=== PATIENT | female | born 2000 | race Caucasian/White ===

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

== ENCOUNTER 2022-05-27 12:09 | Emergency (ER) | payer OTHER, BC ==
[~2022-05-27] VITALS: Ht 157.5 cm; Wt 67.1 kg
[2022-05-27] MEDS ORDERED: ONDANSETRON ODT8 MG PO (15:56)
== END 2022-05-27 16:24 | disposition home or self-care (01) ==
LOC: ED 12:09
DX: K29.00 Acute gastritis without bleeding (principal)
CPT/HCPCS: 36415; 74177; 80053; 81001; 83735; 84703; 85025; J1885; J2405; J7030; Q9967

== ENCOUNTER 2022-06-06 07:12 | Emergency (ER) | payer OTHER, BC ==
[~2022-06-06] VITALS: Ht 157.5 cm; Wt 59.2 kg
[~2022-06-06 07:12] MED LIST changes: +ONDANSETRON ODT8 MG PO
--- OUTSIDE RECORDS SUMMARY | 2022-06-06 07:18 | XMS ---
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 Juan has no Care Guidelines for this patient. Dominick VISIT COUNT (12 MO.) 3 Les Jimenez [address] TOTAL 5 NOTE: Visits indicate total known visits. ED/UCC VISIT TRACKING (12 MO.) 06/06/2022 07:[address] [facility] [place] TYPE: Emergency COMPLAINT: - VOMITING, ABD PAIN 05/27/2022 12:11 KAYLIN Plasencia [place] TYPE: Emergency COMPLAINT: - VOMITING, CHILLS/SWEATS DIAGNOSES: - Vomiting, unspecified - Acute gastritis without bleeding 03/02/2022 03:12 [facility] [employer] [place] TYPE: Emergency DIAGNOSES: - nvd, poss med reaction - Cannabis abuse with other cannabis-induced disorder - nvd, poss med reaction, poss Hemoptysis [facility] [place] [facility] DIAGNOSES: - Generalized abdominal pain - abd/nausea/vomiting - Nausea with vomiting, unspecified 09/07/2021 08:14 [facility] [employer] [place] TYPE: Emergency DIAGNOSES: - n/v/d x several months - Upper abdominal pain, unspecified - Gastro-esophageal reflux disease with esophagitis, without bleeding INPATIENT VISIT TRACKING (12 MO.) No inpatient visits to display in this time frame [id number]
[2022-06-06] MEDS ORDERED: OMEPRAZOLE20 MG PO ×2 (07:27→08:32)
[2022-06-06] MEDS ORDERED: DICYCLOMINE HCL20 MG PO (08:32)
== END 2022-06-06 08:49 | disposition home or self-care (01) ==
LOC: ED 07:12
DX: R10.11 Right upper quadrant pain (principal); R10.31 Right lower quadrant pain; R11.11 Vomiting without nausea; Z79.899 Other long term (current) drug therapy
CPT/HCPCS: 36415; 76705; 80053; 81001; 83690; 84703; 85025; J1885; J2405; J7030

== ENCOUNTER 2022-06-07 07:33 | Observation (INO) | payer OTHER, BC ==
[~2022-06-07] VITALS: Ht 157.5 cm; Wt 61.6 kg
[~2022-06-07 07:33] MED LIST changes: +DICYCLOMINE HCL20 MG PO; +OMEPRAZOLE20 MG PO
--- OUTSIDE RECORDS SUMMARY | 2022-06-07 07:38 | XMS ---
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 Juan has no Care Guidelines for this patient. Dominick VISIT COUNT (12 MO.) 3 [facility] NOTE: Visits indicate total known visits. ED/C VISIT TRACKING (12 MO.) 06/07/2022 07[facility] [place] [facility] COMPLAINT: - VOMITING 06/06/2022 07:[address] [facility] [place] TYPE: Emergency COMPLAINT: - VOMITING, ABD PAIN 05/27/2022 12:11 KAYLIN Plasencia [place] TYPE: Emergency COMPLAINT: - VOMITING, CHILLS/SWEATS DIAGNOSES: - Vomiting, unspecified - Acute gastritis without bleeding 03/02/2022 03:12 [facility] [place] TYPE: Emergency DIAGNOSES: - nvd, poss med reaction - Cannabis abuse with other cannabis-induced disorder - nvd, poss med reaction, poss Hemoptysis 10/24/2021 07:01 [facility] [place] TYPE: Emergency DIAGNOSES: - Generalized abdominal pain - abd/nausea/vomiting - Nausea with vomiting, unspecified 09/07/2021 08:14 Les Thakkar [place] TYPE: Emergency DIAGNOSES: - n/v/d x several months - Upper abdominal pain, unspecified - Gastro-esophageal reflux disease with esophagitis, without bleeding INPATIENT VISIT TRACKING (12 MO.) No inpatient visits to display in this time frame [id number]
--- NOTE | 2022-06-07 13:31 | NUR ---
assumed care of pt, mom in room, call light in reach - pt denies needs
--- NOTE | 2022-06-07 14:00 | NUR ---
PT REQUESTING PAIN MEDICATION, GIVEN 30MG IV TORADOL. PT DENIES OTHER NEEDS AT THIS TIME.
--- NOTE | 2022-06-07 16:24 | NUR ---
SET HER UP FOR A SHOWER FOR TONIGHT OR TOMORROW. PATIENT IS INDEPENDENT IN ROOM.
--- NOTE | 2022-06-07 18:14 | NUR ---
DR HERNANDEZ HERE, PT ABLE TO EAT UNTIL MIDNIGHT - DENIES PAIN, NAUSEA COMES AND GOES - ZOFRAN GIVEN, = INSTRUCTED TO REPORT CHANGES WITH FOOD,
--- NOTE | 2022-06-07 18:34 | NUR ---
consent signed, strait tubing LR at bedside - dinner from kitchen delivered - not very appealing to pt - mom is going out to get her some food - grapes did however cause discomfort in abdomen when she had them. scd's and is to pt and educated. discussed plan of care and what surgery is like.
--- NOTE | 2022-06-07 19:30 | NUR ---
REPORT RECEIVED FROM DAY SHIFT RN. PT LYING IN BED ALERT AND ORIENTED. DENIES NEEDS AT THIS TIME. WHITE BOARD UPDATED. CALL LIGHT IN REACH.
--- NOTE | 2022-06-07 21:04 | NUR ---
EVENING ASSESSMENT COMPLETE. SCHEDULED MEDS ADMIN PER EMAR. PRN FOR PAIN ADMIN FOR 1-03/02 ABD PAIN. PT REPORTS INCREASED RUQ PAIN AFTER EATING GRAPES AND JELLO. SIPPING ON CHICKEN BROTH BROUGHT IN BY MOM, DENIES ABD PAIN OR NAUSEA WITH BROTH AND ICE WATER. BOWEL TONES ACTIVE. ABD SOFT AND NON DISTENDED. PT VOIDING QS. IVF INFUSING WNL. PT/MOM DENY QUESTIONS OR CONCERNS. CALL LIGHT IN REACH.
--- NOTE | 2022-06-07 22:08 | NUR ---
CALL LIGHT ON. pt AMBULATED TO BATHROOM. STATED "I JUST WANTED TO LET MY NURSE KNOW I'M STILL HAVE SOME PAIN RIGHT NOW." DECLINED NEEDS AT THIS TIME. CALL LIGHT WITHIN REACH. PRIMARY RN INFORMED
--- NOTE | 2022-06-07 23:30 | NUR ---
CALL LIGHT ANSWERED. PT REPORTS NAUSEA. PRN FOR N/V ADMIN PER EMAR. REPORTS ABD PAIN 01/30. DENIES PRN FOR PAIN AT THIS TIME. NO FURTHER NEEDS. CALL LIGHT IN REACH.
--- NOTE | 2022-06-08 00:10 | NUR ---
PT REPORTS NAUSEA IMPROVED AFTER PRN ADMINISTRATION. PT NPO AT THIS TIME. VERBALIZES UNDERSTANDING. IVF INFUSING WNL. NO NEEDS AT THIS TIME.
--- NOTE | 2022-06-08 01:54 | NUR ---
CALL LIGHT ANSWERED. PT REPORTS 3/10 INTERMITTENT BURNING RUQ PAIN. PRN FOR PAIN ADMIN PER EMAR. DENIES NAUSEA. REMAINS NPO. VS AND I&O COMPLETE.
--- NOTE | 2022-06-08 02:45 | NUR ---
CALL LIGHT ANSWERED. PT REPORTS ABD PAIN "CREEPING UP" TO 03/02. PRN FOR PAIN ADMIN. NO FURTHER NEEDS.
--- NOTE | 2022-06-08 06:16 | NUR ---
VS AND I&O COMPLETE. PT REPORTS ABD PAIN IS TOLERABLE. REPORTS NAUSEA. PRN FOR N/V ADMIN PER EMAR. PT SL FOR SHOWER. LINENS CHANGED.
--- NOTE | 2022-06-08 06:55 | NUR ---
PT OUT OF THE SHOWER. PHOEBE WELL. IVF INFUSING WNL. WARM BLANKET PROVIDED. BATHROOM CLEANED. NO FURTHER NEEDS.
--- NOTE | 2022-06-08 07:53 | NUR ---
PT RECEIVED WARM BLANKETS FROM [facility].
--- NOTE | 2022-06-08 08:00 | NUR ---
PT STATED SHE TOOK SHOWER AT 0600 THIS MORNING.
--- NOTE | 2022-06-08 08:25 | NUR ---
pt pre procedure check list done, hibicleans wipes done, lr with strait tubeing and ancef oncology research rn to or, pt mom here - scd's on. npo since midnight.
--- NOTE | 2022-06-08 09:20 | HP ---
[facility] [address], [place] [address] Signed ADMISSION DATE: 06/07/2022 REASON FOR ADMISSION: Probable acalculous cholecystitis; abdominal pain and dehydration. HISTORY OF PRESENT ILLNESS: This 21-year-old white woman presented to the emergency room today accompanied by her mother and evaluated by Dr. Alarcon. The patient has had recurrent abdominal pain and vomiting. Her most recent episode started this morning at approximately 6:00 a.m. The patient was seen yesterday for similar symptoms and had normal lab studies including liver enzymes and lipase and a normal right upper abdominal ultrasound. She had been seen 10 days earlier with similar symptoms and a CT scan was performed at that time, which included the pelvis and which was also normal. The patient has had symptoms of a similar type intermittently for several years and was medically discharged from [employer] because of them. She was living in [place] at that time and was seen by a chauffeur airport limousine and had a normal upper endoscopy and ultimately given a diagnosis of irritable bowel syndrome. She did not have a CCK-HIDA test. She did have a gastric emptying study (solid food emptying study) which was said to be normal. She has not been peristently using marijuana. Her symptoms are often related to meals and she absolutely avoids fatty food for fear of causing her symptoms; this is relatively reliable. Her symptoms are definitely related to food intake, and signifiantly worse with fatty food intake. 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 She has associated retching and vomiting as well. She has been on PPI medication on a persistent basis, most recentely on omeprazole and Zofran, as well as dicyclomine. She denies any posterior thoracic pain, though she does have back pain chronically, which she says is related to her years of heavy activity in excersizes in the [employer]. She has an appointment to see Jodi Kirkpatrick in the office of Dr. Abby Gan and conversation between Dr. Alarcon and that office has included a recommendation for a CCK-HIDA test. Electronically Signed By: NEFTALI HERNANDEZ MD 06/08/22 0920 PATIENT NAME: KATERIN MARINA HISTORY AND PHYSICAL DATE OF : 01 REPORT #: [id number] PHYSICIAN: NEFTALI HERNANDEZ MD PCP: HEAVEN KIRKPATRICK PAC REPORT IS CONFIDENTIAL AND NOT TO BE RELEASED WITHOUT AUTHORIZATION [place] [address] Signed I was called by Dr. Alarcon regarding the situation for any further input and on that basis, I have seen her today. PAST MEDICAL HISTORY: Relatively unremarkable. She has never had surgery of the abdomen. Her recent test is negative. LABORATORY STUDIES: Today show a white count of 16,000, hematocrit 41.2, platelets 430,000. Chem profile is essentially normal including liver enzymes. Lipase is 61. CT scan of her abdomen and pelvis performed on May 27, 2022 was essentially normal as interpreted by Dr. Brown. She is considered to have gallbladder sludge on that evaluation. There was a right ovarian cyst that was 45 mm in size. An IUD is in position appropriately. 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 She is not . She lives now in [place]. She was formally in the [employer]. PHYSICAL EXAMINATION: GENERAL: Pleasant white woman who appears to be reasonably comfortable at this time. VITAL SIGNS: Temperature is 98, pulse 65, blood pressure 127/87. NECK: Shows no thyromegaly or cervical adenopathy. Trachea is midline. CHEST: Clear. HEART: Regular. ABDOMEN: Nondistended. She does not have ascites or distention. There is mild vague tenderness in the right upper abdomen. There is no right lower quadrant tenderness. EXTREMITIES: Show no clubbing, cyanosis, or edema. Lab studies were as previously described. I reviewed personally the gallbladder ultrasound performed June 06; there appears to be no sign of stone or sludge, but there is visualization of the posterior wall of the gallbladder . CT scan was reviewed as well. Her liver appeared normal on May 27, stomach and spleen appear normal as do the right and left kidneys. The gallbladder was visualized and not hydropic. I do not discern the sludge as mentioned by the radiologist on this particular monitor and without magnification. The question of ovarian cyst is noted and some asymmetry to the left ovary noted with some consideration (on my part) of possible dermoid, though not certain at all. ASSESSMENT: This patient has had chronic recurrent abdominal pain and nausea and vomiting for which Gastroenterology evaluation in [place], [place] was undertaken. The symptoms have been Electronically Signed By: NEFTALI HERNANDEZ MD 06/08/22 0920 PATIENT NAME: KATERIN MARINA HISTORY AND PHYSICAL DATE OF : 01 REPORT #: [id number] PHYSICIAN: NEFTALI HERNANDEZ MD PCP: HEAVEN KIRKPATRICK PAC REPORT IS CONFIDENTIAL AND NOT TO BE RELEASED WITHOUT AUTHORIZATION [facility] [address] [place] [id number] Signed disabling enough that it caused her to be medically discharged from the [employer]. Strong suspicion remains that this represents biliary disease. She has been described as having possible irritable bowel syndrome; a solid food emptying study was said to be normal. A CT scan and ultrasound results are well acknowledged; there was one episode of the CT scan describing biliary sludge in the gallbladder. She has no abnormal liver enzymes. Her symptoms are reliably related to meals; she has no family history of biliary disease. Her current examination does show mild epigastric and right subcostal tenderness. There is no focal mass. She has tried a low FODMAP diet but only briefly and although she may have indeed irritable bowel syndrome (does describe diarrhea sometimes). It is quite notable that acalculous biliary disease (acalculous cholecystitis) is concomitant to such underlying functional disorders as well. The patient prior to my evaluation was treated with Dilaudid and antiemetics. I would recommend admission to the hospital, continued IV rehydration efforts and re-evaluation. The laparoscopic evaluation including possible cholecystectomy would be reasonable. A CCK-HIDA test certainly would be indicated if available, but this is the weekend and it is not available certainly until the early week. She has had recurrent visits to the ER recently and her symptoms are not abating, but rather accelerating. It has been over a year since her upper endoscopy and though I think it unlikely that she has peptic disease accounting for this set of symptoms some consideration of re-evaluation by upper endoscopy might be considered. For now, considering she has elevated white count, difficulty with oral intake at home and clinical dehydration, admission to the hospital, IV fluid administration and re-examination when her current medications have worn off would be warranted. The patient and her mother (who was present for evaluation) would certainly proceed with cholecystectomy if there is even a slight chance it would improve her progressive disabling symptoms. Laparoscopic evaluation might additionally identify an otherwise occult cause of her symptoms as well, even if the gallbladder was not the source. Neftali Hernandez MD Electronically Signed By: NEFTALI HERNANDEZ MD 06/08/2220 PATIENT NAME: KATERIN MARINA HISTORY AND PHYSICAL DATE OF : 01 REPORT #: [id number] PHYSICIAN: NEFTALI HERNANDEZ MD PCP: HEAVEN KIRKPATRICK REPORT IS CONFIDENTIAL AND NOT TO BE RELEASED WITHOUT AUTHORIZATION [address] [address] Signed /MOD /[id number] cc: MD Kishore Iglesias MD Erika Acuna, PA-C Copies: ABBY GAN MD, WILLIAM S MD ACUNA, ERIKA PAC ~ Electronically Signed By: NEFTALI HERNANDEZ MD 06/08/22919 PATIENT NAME: KATERIN MARINA HISTORY AND PHYSICAL DATE OF : 01 REPORT #: [id number] PHYSICIAN: NEFTALI HERNANDEZ MD PCP: HEAVEN KIRKPATRICK PAC REPORT IS CONFIDENTIAL AND NOT TO BE RELEASED WITHOUT AUTHORIZATION
--- NOTE | 2022-06-08 10:44 | NUR ---
06/08/22 1044 Nidia Celestin 1038: PT ARRIVES TO PACU WITH ORAL AIRWAY IN PLACE ON ROOM AIR. SHE IS NON-REACTIVE TO STIMULUS AT THIS TIME.
--- NOTE | 2022-06-08 11:39 | NUR ---
PATIENT DID A SURGICAL WIPE DOWN. AT 0800 THIS MORNING. ISAURA CHANGED BED LINENS. SCDS ON CLEAN GOWN AND SOCKS.
--- NOTE | 2022-06-08 12:13 | NUR ---
pt to room after surgery - amb standby assist to void in br. 400 ml iv fusing. abd scope sites x4 wnl scds on, mom in room iv toradol given 5/10 pain
--- NOTE | 2022-06-08 13:00 | NUR ---
amb pt to br to void, 500 ml clear urine.
--- NOTE | 2022-06-08 14:20 | NUR ---
pt taken po percocet with food for 4/10 abd pain. scope sites wnl
--- NOTE | 2022-06-08 16:20 | NUR ---
PATIENT AND I AND HER MOM WALKED 1 LAP AROUND MED SURG.
--- NOTE | 2022-06-08 17:45 | NUR ---
PT RESTING IN BED. DID NOT WANT MEAL TRAY BUT HAS SNACKD FOR LATER IN ROOM. VITALS AND I/O'S COMPLETED. NO COMPLAINTS OF PAIN OR OTHER NEEDS AT THIS TIME. CALL LIGHT WITHIN REACH.
--- NOTE | 2022-06-08 17:53 | NUR ---
pt tollerated bites of applesauce - ordered pbj - did not like dinner of pasta sauce and noodles, mom in room, sl iv - pt dressing in own clothing for comfort.
--- NOTE | 2022-06-08 17:57 | NUR ---
pt amb in [place] around nurses station. with mom - no n/v.
--- NOTE | 2022-06-08 18:09 | NUR ---
TALK TO DR HERNANDEZ ON PHONE - UPDATE OF POSITIVE PT BENCHMARKS, PLAN TO STAY TONIGHT AND LEAVE IN AM, THAT WAY NO RX PROBLEMS DUE TO THURSDAY ZHOU, AND IF PT DEVELOPS NAUSEA SHE IS HERE. PT AND MOM AGREE. SL IV, TOLL PO AND HAVING SOME ABD. PAIN.
--- NOTE | 2022-06-08 19:31 | NUR ---
REPORT RECEIVED FROM DAY SHIFT RN. PT LYING IN BED ALERT AND ORIENTED. DENIES NEEDS. WHITE BOARD UPDATED. CALL LIGHT IN REACH.
--- NOTE | 2022-06-08 19:45 | NUR ---
PT REPORTS ABD PAIN 4/10 AFTER AMBULATING IN [place]. PRN FOR PAIN ADMIN PER EMAR.
--- NOTE | 2022-06-08 20:57 | NUR ---
EVENING ASSESSMENT COMPLETE. SCHEDULED MEDS ADMIN PER EMAR. PT REPORTS ABD PAIN 03/02. PRN FOR PAIN ADMIN PER EMAR. ABD LAP SITES X 4 WITH STERI STRIPS AND GAUZE INTACT. SMALL AMOUNT OLD DRAIANGE NOTED. ABD SOFT AND NON DISTENDED. BOWEL TONES ACTIVE. PT REPORTS FLATUS. DENIES NAUSEA AT THIS TIME. ICE PACK FOR ABD PROVIDED. PT DENIES QUESTIONS OR CONCERNS. CALL LIGHT IN REACH.
--- NOTE | 2022-06-08 21:02 | NUR ---
CALL LIGHT ON. pt REQUESTED PRN NAUSEA MEDICATION. GIVEN (SEE MAR). NO FURTHER REQUESTS AT THIS TIME. CALL LIGHT WITHIN REACH.
--- NOTE | 2022-06-08 21:44 | NUR ---
GAVE PRN PAIN MEDICATION PER REQUEST OF PRIMARY RN. pt REPORTS PAIN IS 4/10. NO FURTHER REQUESTS AT THIS TIME. CALL LIGHT WITHIN REACH.
--- NOTE | 2022-06-08 23:59 | NUR ---
CALL LIGHT ANSWERED. ICE WATER PROVIDED.
--- NOTE | 2022-06-09 02:41 | NUR ---
VS AND I&O COMPLETE. PT REPORTS ABD PAIN 5/10. PRN FOR PAIN ADMIN WITH CRACKERS AND BITES OF APPLESAUCE. FRESH WATER AND WARM BLANKET PROVIDED. NO FURTHER NEEDS.
--- NOTE | 2022-06-09 03:15 | NUR ---
CALL LIGHT ANSWERED. PATIENT STATED SHE IS GOING TO THE BATHROOM AND SHE IS A LITTLE "WOOZY". SBA. PATIENT IS BACK IN BED. DENIES OTHER NEEDS AT THIS TIME. PATIENT STATED "I AM OKAY".
--- NOTE | 2022-06-09 06:42 | NUR ---
PT UP AMB SAHA INDEPENDENTLY. BACK TO ROOM. VS AND I&O COMPLETE. PT REPORTS INCISIONAL PAIN 5/10. LAP SITES X 4 WITH STERI STRIPS INTACT. ABD ASSESSMENT UNCHANGED. PRN FOR PAIN ADMIN PER EMAR. ICE PACK PROVIDED FOR ABD. NO FURTHER NEEDS. CALL LIGHT IN REACH.
--- NOTE | 2022-06-09 07:30 | NUR ---
THIS RN AND GISELLE SIMON RECEIVED SHIFT REPORT FROM GISELLE CHAPMAN. PATIENT AWAKE IN BED WATCHING TV. PATIENT DENIES ANY CARE NEEDS AT THIS TIME. CALL LIGHT IN REACH.
--- NOTE | 2022-06-09 07:47 | NUR ---
TO PT FOR MORNING ASSESSMENT. PT A/O, RESPIRATIONS REGULAR AND EVEN. ABD DRESSINGS DRY AND INTACT. RATES PAIN 4/10 WOULD LIKE TO WAIT UNTIL PERCOCET AVAILBABLE FOR PAIN MANAGEMENT. FAMILY AT BEDSIDE.
--- NOTE | 2022-06-09 08:37 | NUR ---
TO PT ROOM TO CHECK ON PT. RATES PAIN 5/10. PERCOCET GIVEN. PT STATES SHE WALKED IN THE HALLWAY THIS MORNING AND WAS ABLE TO TOLERATE HER BREAKFAST WITHOUT NAUSEA. CALL LIGHT WITHIN REACH. FAMILY AT BEDSIDE.
[2022-06-09] MEDS ORDERED: IBUPROFEN600 MG PO (09:58)
[2022-06-09] MEDS ORDERED: OXYCODON-ACETA1 EAC2 PO (09:59)
[2022-06-09] MEDS ORDERED: ACETAMINOPHEN500 MG PO (09:59)
--- NOTE | 2022-06-09 10:30 | NUR ---
I was able to visit with Christine and her mother this morning prior to discharge. Christine is setting up in bed, she has a smile on her face and she is very cheerful to talk to. She is oriented to person, place, and time, and she answers questions appropriately. She states that "she feels greet today" and she expresses gratitude for the "wonderful care" that she has received while being a patient here in the hospital. Christine plans to discharge to home with her mother to assist with her care as needed while she recovers from her recent surgery. Both Christine and her mother deny questions or concerns at this time, they have already received instructions from the pharmacist and both feel comfortable with the current discharge plan.
--- NOTE | 2022-06-09 10:35 | NUR ---
TO PT ROOM FOR DISCHARGE. PT A/O, VS WNL. IV REMOVED. DISCHARGE EDUCATION PROVIDED TO PT WITH FOLLOW UP APPOINTMENT. DISCHARGED TO HOME WITH MOM.
--- NOTE | 2022-06-10 21:47 | OR ---
[facility] [address], [place] [address] Signed DATE OF OPERATION: 06/08/2022 SURGEON: Neftali Hernandez MD PREOPERATIVE DIAGNOSES: 1. Biliary dyskinesia. 2. Chronic acalculous cholecystitis. POSTOPERATIVE DIAGNOSES: 1. Biliary dyskinesia. 2. Chronic acalculous cholecystitis. PROCEDURES: 1. Laparoscopic cholecystectomy with intraoperative cholangiogram. 2. Surgeon-directed fluoroscopy. ANESTHESIA: General endotracheal; Sandor Taylor CRNA and local 10 mL of 0.25% Marcaine with epinephrine. INDICATIONS: This 21-year-old white woman, has had chronic recurrent epigastric and right subcostal pain for many months. She has been evaluated by patching machine operator in the [place] area. An ultrasound was negative and a gastric emptying study was normal as well. She was considered to have irritable bowel syndrome on that basis. A low FODMAP diet was of no benefit to her. She notes that intake of fatty food particularly causes severe epigastric and right subcostal pain. She has no family history of biliary disease that she is aware of. She presented to the emergency room for the third time in the past week yesterday and evaluated by Dr. Alarcon once again. A CT scan previously performed showed some sludge in the gallbladder. Ultrasound performed most recently showed no stones or sludge. Her liver enzymes are normal. Her white count was elevated upon presentation yesterday. She was admitted and given intravenous fluids and a trial of oral intake, which cause symptoms once again. Notably, she had an upper endoscopy by the gastrologist within the past year, which was normal. She is considered likely to have acalculous cholecystitis or biliary dyskinesia and on that basis, I have offered cholecystectomy preferred by laparoscopic approach. The risks of bleeding, infection, bile duct injury, and most importantly failure to cure the problem were reviewed with the patient and her mother. Electronically Signed By: NEFTALI HERNANDEZ MD 06/10/22 9779 PATIENT NAME: KATERIN MARINA OPERATIVE REPORT DATE OF : 01 REPORT #: [id number] PHYSICIAN: NEFTALI HERNANDEZ MD PCP: HEAVEN AYOUB PAC REPORT IS CONFIDENTIAL AND NOT TO BE RELEASED WITHOUT AUTHORIZATION [facility] [address], [place] [address] Signed They understand and wished to proceed. FINDINGS: The gallbladder was chronically inflamed. There was no sign of stones. Upon opening the gallbladder, chronic inflammatory changes in the mucosa was noted. Cholangiogram was normal. Liver was normal. There were no other findings of concern. DESCRIPTION OF PROCEDURE: The patient was brought to the operating room, given general endotracheal anesthetic. Preoperative antibiotic Ancef was given. Sequential compression device stockings used and heparin subcutaneously administered. The abdomen was prepared with chlorhexidine solution and draped sterilely. An infraumbilical incision was made and using an open Osmany cannula technique, the abdomen entered and pneumoperitoneum achieved to a level of 14 mmHg of carbon dioxide gas. Intra-abdominal inspection showed no sign of ascites or carcinomatosis. Liver was normal. The gallbladder had mild inflammatory change. Three additional trocars were placed in usual configuration in the subxiphoid, right midclavicular, and right anterior axillary line. The gallbladder was elevated cephalad and retracted laterally and using blunt and electrocautery dissection, the triangle of Calot was dissected free. Cystic arterial branch was easily identified and doubly clipped. The cystic duct appeared relatively small, but normal otherwise. A clip was applied across the gallbladder cystic duct junction and a transverse choledochotomy made in the cystic duct. Using an [employer] type cholangiocatheter system, intraoperative cholangiography was undertaken showing free flow of contrast in biliary tree with prompt emptying into the duodenum. There was no sign of biliary anomaly, filling defect or other problem. The catheter was removed. The cystic duct was triply clipped and divided and the gallbladder dissected free in a retrograde fashion using electrocautery. Gallbladder was extracted through the infraumbilical port site opened on the back table and found to have chronic inflammatory change of the mucosa. There was no sign of stone or neoplasm. Irrigation was undertaken in the subhepatic space. There was no evidence of bleeding, bile leak, or other problem. The trocars removed under direct visualization showing no sign of bleeding. The infraumbilical fascial incision was reapproximated with interrupted 0-Vicryl suture. A 10 mL of 0.25% Marcaine with epinephrine was injected locally. The skin was closed with interrupted 3-0 Vicryl. Steri-Strips were applied. She was extubated and taken to the recovery room in good condition, having suffered no complication. Sponge, needle, and instrument counts reported as correct x3. Neftali Hernandez MD Electronically Signed By: NEFTALI HERNANDEZ MD 06/10/22 2147 PATIENT NAME: KATERIN MARINA OPERATIVE REPORT DATE OF : 01 REPORT #: [id number] PHYSICIAN: NEFTALI HERNANDEZ MD PCP: HEAVEN AYOUB PAC REPORT IS CONFIDENTIAL AND NOT TO BE RELEASED WITHOUT AUTHORIZATION [facility] [address] [address] Signed /NEAL /[id number] cc: MD Kishore Iglesias MD Erika Acuna, PA-C Copies: ABBY JOYCE MD, WILLIAM S MD ACUNA, ERIKA PAC ~ Electronically Signed By: NEFTALI HERNANDEZ MD 06/10/22 2147 PATIENT NAME: KATERIN MARINA OPERATIVE REPORT DATE OF : 01 REPORT #: [id number] PHYSICIAN: NEFTALI HERNANDEZ MD PCP: HEAVEN AYOUB REPORT IS CONFIDENTIAL AND NOT TO BE RELEASED WITHOUT AUTHORIZATION
--- NOTE | 2022-06-11 12:36 | PATH ---
[facility] [address] [facility] [place], [place] [address] Signed SPECIMEN(S): A GALLBLADDER SPECIMEN SOURCE: A. GALLBLADDER CLINICAL HISTORY: Acalculous cholecystitis, abdominal pain, dehydration. FINAL PATHOLOGIC DIAGNOSIS: Gallbladder, cholecystectomy: - Gallbladder with features suggestive of chronic cholecystitis. NAL:cml:C2NR MICROSCOPIC EXAMINATION: Histologic sections of all submitted blocks are examined by light microscopy. These findings, together with the gross examination, support the pathologic diagnosis. GROSS DESCRIPTION: The specimen, labeled "DB, A," and designated on the requisition "gallbladder," is received in formalin and consists of: Specimen: Previously opened gallbladder. Dimensions: 5.5 x 3.5 x 1.0 cm. Serosa: Green-messer and smooth. Cystic Duct: Unobstructed, margin inked black and shaved. Calculi: Not grossly identified. Mucosa: Green and velvety. Wall thickness: 0.2 to 0.3 cm. Lymph node: No pericystic lymph nodes are grossly identified. Additional: None. Refractory Technician sections are submitted in cassette (A1). AC (under the direct supervision of a pathologist) The Gross Description was prepared using a voice recognition system. The report was reviewed for accuracy; however, sound-alike word errors, addition and/or deletions may occur. If there is any question about this report, please contact Client Services. PERFORMING LABORATORY: The technical component was performed by [facility], [address] [place] [id number] (CLIA# [id number]). Professional interpretation was performed by [facility] PATIENT NAME: KATERIN MARINA PATHOLOGY DATE OF : 01 REPORT #: [id number] PHYSICIAN: RUBY PATHOLOGY PCP: HEAVEN AYOUB PAC REPORT IS CONFIDENTIAL AND NOT TO BE RELEASED WITHOUT AUTHORIZATION [facility] [address] [facility] [place], [place] [address] Signed [facility] [address] [facility], [facility], [place], [place] [address] (CLIA# [id number]). Diagnostician: Elmira Ovalle MD Pathologist Electronically Signed 06/11/2022 Copies: ~ PATIENT NAME: KATERIN MARINA PATHOLOGY DATE OF : 01 REPORT #: [id number] PHYSICIAN: RUBY PATHOLOGY PCP: HEAVEN AYOUB PAC REPORT IS CONFIDENTIAL AND NOT TO BE RELEASED WITHOUT AUTHORIZATION
--- NOTE | 2022-06-11 13:55 | DS ---
[facility] [address] [place], [place] [address] Signed ADMISSION DATE: 06/07/2022 DISCHARGE DATE: 06/09/2022 REASON FOR ADMISSION: This 21-year-old woman presented to the emergency room accompanied by her mother and evaluated by Dr. Alarcon. The patient has had recurrent abdominal pain and vomiting. She has had this going on for more than a year. She was evaluated by heating equipment installer in the [place] area, who did upper endoscopy finding no sign of peptic disease and a gastric emptying study, which showed normal gastric emptying. Her symptoms include epigastric pain and nausea, worse following food. An ultrasound was found to be normal and without stones... or thinking. Her symptoms were disabling enough that she had to be medically discharged from [facility] [employer]. 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 She presented to the emergency room for the 3rd time in a week and evaluated by Dr. Alarcon. During the course for recurrent evaluations by Dr. Alarcon, she did have a CT scan and also an ultrasound. The CT scan did show some possible sludge in the gallbladder, but no other findings of concern except for a small ovarian cyst on the right side. Her symptoms are not pelvic in origin. Her ultrasound showed no sign of stones. Given her dehydration and so forth, I admitted her directly for further consideration of probable biliary disease. PERTINENT PHYSICAL EXAMINATION: GENERAL: Showed a fit and healthy white woman who looked to be in mild discomfort. She showed no sign of jaundice. CHEST: Clear. HEART: Regular without murmur. ABDOMEN: Soft and nondistended. She had tenderness in the epigastric and right subcostal area but this was not focal. LABORATORY STUDIES: Showed an elevated white count of 16, hematocrit 41.2, platelets 430,000. Chem profile is essentially normal. Lipase was 61. COVID serology negative. HOSPITAL COURSE: She was admitted and given fluid resuscitation, but no antibiotics and was observed. Her symptoms abated with n.p.o. status and fluids. Examination still showed some mild tenderness in the subcostal area. As it was the weekend and there was no availability Electronically Signed By: NEFTALI HERNANDEZ MD 06/11/22 1355 PATIENT NAME: KATERIN MARINA DISCHARGE SUMMARY DATE OF : 01 REPORT #: [id number] PHYSICIAN: NEFTALI HERNANDEZ MD PCP: MAI KIRKPATRICK PAC REPORT IS CONFIDENTIAL AND NOT TO BE RELEASED WITHOUT AUTHORIZATION [facility] [address] [place], [place] [address] Signed of nuclear medicine, a CCK-HIDA test was not possible. She was given a regular meal to assess her tolerance to food.... it reproduced her symptoms quite markedly. On the basis of that she was considered likely to have subacute acalculous cholecystitis. On June 08, 2022 (Thursday), she underwent laparoscopic cholecystectomy with intraoperative cholangiogram. She was found to have a chronically inflamed gallbladder, particularly in the mucosa. There was no sign of stones and cholangiogram was normal. Postoperatively, she tolerated food intake without any problem whatsoever including no nausea, vomiting, or pain. She is discharged home in improved condition with a presumptive diagnosis of acalculous cholecystitis ( resolved). DISCHARGE MEDICATIONS: Will include: 1. Motrin 600 mg p.o. q.6 hours as needed for pain, #30. 2. Percocet 7.5/325 1-2 p.o. q.6 hours p.r.n. pain, #6. 3. Tylenol 500 mg tablets two tablets p.o. q.6 hours as needed for pain, #30. 4. She can continue Zofran rapid dissolving tablet 8 mg t.i.d. as needed and omeprazole 20 mg p.o. daily. She will discontinue dicyclomine. FOLLOWUP PLAN: She will return to see me in approximately 4 weeks. She was anticipating a followup appointment with Mai Kirkpatrick in the coming week for further evaluation of her recurrent symptoms, but since they are now resolved, she will plan to cancel that visit. MD MARYCRUZ Wilson/MARJANL /[id number] cc: MD Mai Iglesias PA-C Electronically Signed By: NEFTALI HERNANDEZ MD 06/11/22 1355 PATIENT NAME: KATERIN MARINA DISCHARGE SUMMARY DATE OF : 01 REPORT #: [id number] PHYSICIAN: NEFTALI HERNANDEZ MD PCP: MAI KIRKPATRICK PAC REPORT IS CONFIDENTIAL AND NOT TO BE RELEASED WITHOUT AUTHORIZATION [address] [address] Signed Kishore Alarcon MD Copies: ABBY JOYCE MD, ERIKA PAC POWELL, WILLIAM S MD ~ Electronically Signed By: NEFTALI HERNANDEZ MD 06/11/22 1355 PATIENT NAME: KATERIN MARINA DISCHARGE SUMMARY DATE OF : 01 REPORT #: [id number] PHYSICIAN: NEFTALI HERNANDEZ MD PCP: MAI KIRKPATRICK REPORT IS CONFIDENTIAL AND NOT TO BE RELEASED WITHOUT AUTHORIZATION
== END 2022-06-09 10:35 | disposition home or self-care (01) ==
LOC: ED 07:33 → MS 07:34
PROVIDERS: ADMIT Surgery; ATTEND Surgery
PROC: BF13YZZ Fluoroscopy of Gallbladder and Bile Ducts using Other Contrast (ICD-10-PCS; 2022-06-08)
PROC: 0FT44ZZ Resection of Gallbladder, Percutaneous Endoscopic Approach (ICD-10-PCS; principal; 2022-06-08 09:40)
DX: K81.1 Chronic cholecystitis (principal); Z20.822 Contact with and (suspected) exposure to COVID-19
CPT/HCPCS: 00790; 36415; 74300; 80053; 83690; 85025; 87502; 96361; 96374; 96375; 96376; 99284-25; A9270; C9113; C9803; G0378; J0690; J1100; J1170; J1790; J1885; J2001; J2250; J2405; J2704; J2765; J3010; J7030; J7121; Q9967; U0003

== ENCOUNTER 2022-11-09 11:34 | Emergency (ER) | payer OTHER, BC ==
[~2022-11-09] VITALS: Ht 152.4 cm; Wt 58.3 kg
[~2022-11-09 11:34] MED LIST changes: +ACETAMINOPHEN500 MG PO; +IBUPROFEN600 MG PO; +OXYCODON-ACETA1 EAC2 PO
--- OUTSIDE RECORDS SUMMARY | 2022-11-09 11:36 | XMS ---
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 Dominick VISIT COUNT (12 MO.) 1 [facility] 1 [facility] 1 [facility] [address] [facility] TOTAL 7 NOTE: Visits indicate total known visits. ED/UCC VISIT TRACKING (12 MO.) 11/09/2022 11:34 [facility] [place] TYPE: Emergency COMPLAINT: - VOMITING 10/10/2022 16:59 [facility] [place] TYPE: Emergency COMPLAINT: - Unspecified abdominal pain - Nausea with vomiting, unspecified DIAGNOSES: 1. Nausea with vomiting, unspecified 09/25/2022 08:52 [facility] [place] TYPE: Emergency DIAGNOSES: - Abdominal Pain - Emesis - Nausea with vomiting, unspecified 06/07/2022 07:33 [facility] [place] TYPE: Emergency COMPLAINT: - VOMITING 06/06/2022 07:13 [facility] [place] TYPE: Emergency COMPLAINT: - VOMITING, ABD PAIN DIAGNOSES: - Vomiting without nausea - Right upper quadrant pain - Upper abdominal pain, unspecified - Right lower quadrant pain - Other intermediate (current) drug therapy 05/27/2022 12:[address] [facility] [place] TYPE: Emergency COMPLAINT: - VOMITING, CHILLS/SWEATS DIAGNOSES: - Acute gastritis without bleeding - Vomiting, unspecified 03/02/2022 03:12 [facility] [place] TYPE: Emergency DIAGNOSES: - Cannabis abuse with other cannabis-induced disorder - nvd, poss med reaction, poss Hemoptysis - nvd, poss med reaction INPATIENT VISIT TRACKING (12 MO.) 06/07/2022 07:34 [facility] [place] TYPE: Observation COMPLAINT: - ABDOMINAL PAIN DEHYDRATION DIAGNOSES: - Other specified diseases of gallbladder - Contact with and (suspected) exposure to COVID-19 - Chronic cholecystitis [email or web address]
== END 2022-11-09 15:27 | disposition home or self-care (01) ==
LOC: ED 11:34
DX: R11.2 Nausea with vomiting, unspecified (principal); Z90.49 Acquired absence of other specified parts of digestive tract
CPT/HCPCS: 36415; 80053; 81003; 83735; 84703; 85025; 96374; 96375; 99284-25; J1200; J1790; J2405; J7040

== ENCOUNTER 2023-01-25 08:23 | Emergency (ER) | payer BC ==
[~2023-01-25] VITALS: Ht 152.4 cm; Wt 59.0 kg
[2023-01-25] MEDS ORDERED: ONDANSETRON ODT8 MG PO (09:15)
== END 2023-01-25 11:05 | disposition home or self-care (01) ==
LOC: ED 08:23
DX: K29.00 Acute gastritis without bleeding (principal); Z79.899 Other long term (current) drug therapy
CPT/HCPCS: 36415; 80053; 81001; 83690; 84703; 85025; 96361; 96374; 96375; 99284-25; J1790; J2405; J7030

== ENCOUNTER 2023-07-04 07:41 | Emergency (ER) | payer BC | END 2023-07-04 11:21 | disposition home or self-care (01) | LOC: ED 07:41 | DX: K29.70 Gastritis, unspecified, without bleeding (principal); Z79.899 Other long term (current) drug therapy ==

== ENCOUNTER 2023-07-10 07:04 | Emergency (ER) | payer OTHER, BC ==
[~2023-07-10] VITALS: Ht 152.4 cm; Wt 56.7 kg
--- OUTSIDE RECORDS SUMMARY | ~2023-07-10 | XMS | Continuity of Care Document ---
Demographics + + + | Address | [address] | | | [place] [address] | + + + | Preferred Language | Unknown | + + + | Marital Status | Never | + + + | Confucianism Affiliation | Unknown | + + + | Race | White | + + + | Ethnic Group | Not or | + + + Author + + + | Author | [facility] | + + + | Organization | [facility] | + + + | Address | [address] | | | [place] [address] | + + + | Phone | | + + + Care Team Providers + + + + | Care Retail Shift Supervisor Name | Role | Phone | + [...] | 2018-06-26 00:00 | Tdap | [facility] | + + + + | 2022-06-09 00:00 | No vaccine administered | [facility] | + + + + Medications + + + + | date | description | facility | + + + + | 2022-06-09 00:00 | OXYCODONE | [facility] | | | HCL/ACETAMINOPHEN | | + + + + | 2022-06-09 00:00 | acetaminophen 325 MG / | [facility] | | | oxycodone hydrochloride 7.5 | | | | MG Oral T | | + + + + | 2022-06-09 00:00 | IBUPROFEN | [facility] | + + + + | 2022-06-09 00:00 | ibuprofen 600 MG Oral | [facility] | | | Tablet | | + + + + | 2022-06-06 00:00 | OMEPRAZOLE | [facility] | + + + + | 2022-06-06 00:00 | omeprazole 20 MG Delayed | [facility] | | | Release Oral Capsule | | + + + + | 2023-07-04 00:00 | ONDANSETRON HCL | [facility] | + + + + | 2022-06-09 00:00 | ACETAMINOPHEN | [facility] | + + + + | 2022-06-09 00:00 | acetaminophen 500 MG Oral | [facility] | | | Tablet | | + + + + | 2023-07-04 00:00 | FLUOXETINE HCL | [facility] | + + + + | 2023-07-04 00:00 | SUCRALFATE | [facility] | + + + + | 2015-01-28 00:00 | AZITHROMYCIN | [facility] | + + + + | 2015-01-28 00:00 | azithromycin 250 MG Oral | [facility] | | | Tablet [Zithromax] | | + + + + | 2022-05-27 00:00 | ONDANSETRON | [facility] | + + + + | 2023-01-25 00:00 | ONDANSETRON | [facility] | + + + + | 2022-05-27 00:00 | ondansetron 8 MG | [facility] | | | Disintegrating Oral Tablet | | + + + + | 2022-06-06 00:00 | DICYCLOMINE HCL | [facility] | + + + + | 2022-06-06 00:00 | dicyclomine hydrochloride | [facility] | | | 20 MG Oral Tablet | | + + + + Problems + + + + | date | description | facility | + + + + | 2015-01-28 00:00 | Bronchitis | [facility] | + + + + | 2018-06-26 00:00 | Contusion of face | [facility] | + + + + | 2018-06-26 00:00 | Contusion of left knee | [facility] | + + + + | 2022-05-27 00:00 | Acute gastritis | [facility] | + + + + | 2022-06-07 00:00 | Dehydration | [facility] | + + + + | 2022-06-07 00:00 | Abdominal pain | [facility] | + + + + | 2022-11-09 00:00 | Vomiting | [facility] | + + + + | [...] + + | 2023-07-04 07:41 | OTHER LONG-TERM (CURRENT) | [facility] | | | [facility] | | + + + + Procedures + + + + | date | description | facility | + + + + | 2022-06-08 00:00 | Laparoscopic | [facility] | | | cholecystectomy with | | | | cholangiography | | + + + + | 2022-06-08 00:00 | Laparoscopic | [facility] | | | cholecystectomy with | [...] 2 | + + + + + +-------+ + + | | 2022-05-27 | [facility] | 506 | (missing) | (missing) | | (unavailable | 13:35 [facility] | | | | + + + +-------+ + + + + | Result panel 3 | + + + + + +------+ + + | | 2022-05-27 | [facility] | 94 | (missing) | (missing) | | (unavailable | 13:35 | [facility] | | | | + + + +------+ + + + + | Result panel 4 | + + + + + +-----+ + + | | 2022-05-27 | [facility] | 4 | (missing) | (missing) | | (unavailable | 13:35 | [facility] | | | | + + + +-----+ + + + + | Result panel 5 | + + + + + +-----+ + + | | 2022-05-27 | [facility] | 2 | (missing) | (missing) | | (unavailable | 13:35 | [facility] | | | | + + + +-----+ + + + + | Result panel 6 | + + + + + + + + + | | 2022-05-27 | [facility] | PRESENT | (missing) | (missing) | | (unavailable | 13:35 | [facility] | | | | + + + + + + + + + | Result panel 7 | + + + + + + + + + | | 2022-05-27 | [facility] | PRESENT | (missing) | (missing) | | (unavailable | 13:35 | [facility] | | | | + + + + + + + + + | Result panel 8 | + + + + + +-------+---------+ + | | 2022-05-27 | [facility] | 137 | mg/dL | (missing) | | (unavailable | 13:35 | [facility] | | | | + + + +-------+---------+ + + + | Result panel 9 | + + + + + +------+---------+ + | | 2022-05-27 | [facility] | 14 | mg/dL | (missing) | | (unavailable | 13:35 | [facility] | | | | + + + +------+---------+ + + + | Result panel 10 | + + + + + +--------+---------+ + | | 2022-05-27 | [facility] | 0.79 | mg/dL | (missing) | | (unavailable | 13:35 | [facility] | | | | + + + +--------+---------+ + + + | Result panel 11 | + + + + + +-------+ + + | | 2022-05-27 | [facility] | 110 | (missing) | (missing) | | (unavailable | 13:35 | [facility] | | | | + + + +-------+ + + + + | Result panel 12 | + + + + + +---------+ + + | | 2022-05-27 | [facility] | 17.72 | (missing) | (missing) | | (unavailable | 13:35 | [facility] | | | | + + + +---------+ + + + + | Result panel 13 | + + + + + +-------+ + + | | 2022-05-27 | [facility] | 139 | (missing) | (missing) | | (unavailable | 13:35 | [facility] | | | | + + + +-------+ + + + + | Result panel 14 | + + + + + +-------+ + + | | 2022-05-27 | [facility] | 3.5 | (missing) | (missing) | | (unavailable | 13:35 | [facility] | | | | + + + +-------+ + + + + | Result panel 15 | + + + + + +-------+ + + | | 2022-05-27 | [facility] | 102 | (missing) | (missing) | | (unavailable | 13:35 | [facility] | | | | + + + +-------+ + + + + | Result panel 16 | + + + + + +------+ + + | | 2022-05-27 | [facility] | 23 | (missing) | (missing) | | (unavailable | 13:35 | [facility] | | | | + + + +------+ + + + + | Result panel 17 | + + + + + +--------+ + + | | 2022-05-27 | [facility] | 17.5 | (missing) | (missing) | | (unavailable | 13:35 | [facility] | | | | + + + +--------+ + + + + | Result panel 18 | + + + + + +--------+---------+ + | | 2022-05-27 | [facility] | 10.0 | mg/dL | (missing) | | (unavailable | 13:35 | [facility] | | | | + + + +--------+---------+ + + + | Result panel 19 | + + + + + +-------+---------+ + | | 2022-05-27 | [facility] | 1.7 | mg/dL | (missing) | | (unavailable | 13:35 | [facility] | | | | + + + +-------+---------+ + + + | Result panel 20 [...] 23 | + + + + + +--------+ + + | | 2022-05-27 | [facility] | 1.20 | (missing) | (missing) | | (unavailable | 13:35 | [facility] | | | | + + + +--------+ + + + + | Result panel 24 | + + + + + +-------+ + + | | 2022-05-27 | [facility] | 1.4 | (missing) | (missing) | | (unavailable | 13:35 | [facility] | | | | + + + +-------+ + + + + | Result panel 25 | + + + + + +------+ + + | | 2022-05-27 | [facility] | 23 | (missing) | (missing) | | (unavailable | 13:35 | [facility] | | | | + + + +------+ + + + + | Result panel 26 | + + + + + +------+ + + | | 2022-05-27 | [facility] | 41 | (missing) | (missing) | | (unavailable | 13:35 | [facility] | | | | + + + +------+ + + + + | Result panel 27 | + + + + + +------+ + + | | 2022-05-27 | [facility] | 64 | (missing) | (missing) | | (unavailable | 13:35 | [facility] | | | | + + + +------+ + + + + | Result panel 28 | + + + + + + + + + | | 2022-05-27 | [facility] | NEGATIVE | (missing) | (missing) | | (unavailable | 13:35 | [facility] | | | | + + + + + + + + + | Result panel 29 | + + + + + + + + + | | 2022-05-27 | [facility] | PRESENT | (missing) | (missing) | | (unavailable | 13:35 | [facility] | | | | + + + + + + + + + | Result panel 30 | + + + + + + + + + | | 2022-05-27 | [facility] | PRESENT | (missing) | (missing) | | (unavailable | 13:35 | [facility] | | | | + + + + + + + + + | Result panel 31 | + + + + + +-------+---------+ + | | 2022-05-27 | [facility] | 1.7 | mg/dL | (missing) | | (unavailable | 13:35 | [facility] | | | | + + + +-------+---------+ + + + | Result panel 32 | + + + + + + + + + | | 2022-05-27 | [facility] | PRESENT | (missing) | (missing) | | (unavailable | 13:35 | [facility] | | | | + + + + + + + + + | Result panel 33 | + + + + + + + + + | | 2022-05-27 | [facility] | PRESENT | (missing) | (missing) | | (unavailable | 13:35 | [facility] | | | | + + + + + + + + + | Result panel 34 | + + + + + +-------+---------+ + | | 2022-05-27 | [facility] | 1.7 | mg/dL | (missing) | | (unavailable | 13:35 | [facility] | | | | + + + +-------+---------+ + + + | Result panel 35 [...] 37 | + + + + + +-------+ [...] 38 | + + + + + +--------+ + + | | 2022-05-27 | [facility] | 16.7 | (missing) | (missing) | | (unavailable | 13:35 | [facility] | | | | + + + +--------+ + + + + | Result panel 39 | + + + + + +--------+ + + | | 2022-05-27 | [facility] | 5.34 | (missing) | (missing) | | (unavailable | 13:35 | [facility] | | | | + + + +--------+ + + + + | Result panel 40 | + + + + + +--------+ + + | | 2022-05-27 | [facility] | 15.3 | (missing) | (missing) | | (unavailable | 13:35 | [facility] | | | | + + + +--------+ + + + + | Result panel 41 | + + + + + +--------+ + + | | 2022-05-27 | [facility] | 46.3 | (missing) | (missing) | | (unavailable | 13:35 | [facility] | | | | + + + +--------+ + + + + | Result panel 42 | + + + + + +--------+ + + | | 2022-05-27 | [facility] | 86.7 | (missing) | (missing) | | (unavailable | 13:35 | [facility] | | | | + + + +--------+ + + + + | Result panel 43 | + + + + + +--------+ + + | | 2022-05-27 | [facility] | 28.6 | (missing) | (missing) | | (unavailable | 13:35 | [facility] | | | | + + + +--------+ + + + + | Result panel 44 | + + + + + +--------+ [...] (missing) | | (unavailable | 11:50 | [facility] | | | | | [...] 332 | + + + + + +--------+ [...] 337 | + + + + + +-------+---------+ + | | 2023-07-04 | [facility] | 120 | mg/dL | (missing) | | (unavailable | 08:27:07 | [facility] | | | | + + + +-------+---------+ + + + | Result panel 338 | + + + + + +------+---------+ + | | 2023-07-04 | [facility] | 10 | mg/dL | (missing) | | (unavailable | 08:27:07 | [facility] | | | | + + + +------+---------+ + + + | Result panel 339 | + + + + + +--------+---------+ + | | 2023-07-04 | [facility] | 0.70 | mg/dL | (missing) | | (unavailable | 08:27:07 | [facility] | | | | + + + +--------+---------+ + + + | Result panel 340 | + + + + + +-------+ + + | | 2023-07-04 | [facility] | 126 | (missing) | (missing) | | (unavailable | 08:27:07 | [facility] | | | | + + + +-------+ + + + + | Result panel 341 | + + + + + +---------+ + + | | 2023-07-04 | [facility] | 14.28 | (missing) | (missing) | | (unavailable | 08:27:07 | [facility] | | | | + + + +---------+ + + + + | Result panel 342 | + + + + + +-------+ [...] 344 | + + + + + +-------+ [...] 349 | + + + + + +-------+ + + | | 2023-07-04 | [facility] | 8.2 | (missing) | (missing) | | (unavailable | 08:27:07 | [facility] | | | | + + + +-------+ + + + + | Result panel 350 | + + + + + +-------+ [...] 352 | + + + + + +--------+ [...] 354 | + + + + + +--------+ + + | | 2023-07-04 | [facility] | 14.0 | (missing) | (missing) | | (unavailable | 08:27:07 | [facility] | | | | + + + +--------+ + + + + | Result panel 355 | + + + + + +------+ [...] 357 | + + + + + +------+ [...] 359 | + + + + + + + + + | | 2023-07-04 | [facility] | NEGATIVE | (missing) | (missing) | | (unavailable | 08:27:07 | [facility] | | | | + + + + + + + + + | Result panel 360 | + + + + + +--------+ [...] 363 | + + + + + +--------+ [...] +-------+ + + | | 2023-07-04 | [facility] | 417 | (missing) | (missing) | | (unavailable | 08:27:07 | [facility] | | | | + + + +-------+ + + Social History + + + + | date | description | facility | + + + + | 2022-06-09 00:00 | [facility]oker [facility] | + + + + Vital [...] 125.51 | lb | + + + +---------+"
--- OUTSIDE RECORDS SUMMARY | ~2023-07-10 | XMS | Continuity of Care Document ---
Demographics + + + | Address | [address] | | | [place] [address] | + + + | Preferred Language | Unknown | + + + | Marital Status | Never | + + + | Sabianist Affiliation | Unknown | + + + | Race | White | + + + | Ethnic Group | Not or | + + + Author + + + | Author | [facility] | + + + | Organization | [facility] | + + + | Address | [address] | | | [place] [address] | + + + | Phone | | + + + Care Team Providers + + + + | Care Polymer Specialist Name | Role | Phone | [...] | 2018-06-26 00:00 | Tdap | [facility] | + + + + | 2022-06-09 00:00 | No vaccine administered | [facility] | + + + + Medications + + + + | date | description | facility | + + + + | 2022-06-09 00:00 | OXYCODONE | [facility] | | | HCL/ACETAMINOPHEN | | + + + + | 2022-06-09 00:00 | acetaminophen 325 MG / | [facility] | | | oxycodone hydrochloride 7.5 | | | | MG Oral T | | + + + + | 2022-06-09 00:00 | IBUPROFEN | [facility] | + + + + | 2022-06-09 00:00 | ibuprofen 600 MG Oral | [facility] | | | Tablet | | + + + + | 2022-06-06 00:00 | OMEPRAZOLE | [facility] | + + + + | 2022-06-06 00:00 | omeprazole 20 MG Delayed | [facility] | | | Release Oral Capsule | | + + + + | 2023-07-04 00:00 | ONDANSETRON HCL | [facility] | + + + + | 2022-06-09 00:00 | ACETAMINOPHEN | [facility] | + + + + | 2022-06-09 00:00 | acetaminophen 500 MG Oral | [facility] | | | Tablet | | + + + + | 2023-07-04 00:00 | FLUOXETINE HCL | [facility] | + + + + | 2023-07-04 00:00 | SUCRALFATE | [facility] | + + + + | 2015-01-28 00:00 | AZITHROMYCIN | [facility] | + + + + | 2015-01-28 00:00 | azithromycin 250 MG Oral | [facility] | | | Tablet [Zithromax] | | + + + + | 2022-05-27 00:00 | ONDANSETRON | [facility] | + + + + | 2023-01-25 00:00 | ONDANSETRON | [facility] | + + + + | 2022-05-27 00:00 | ondansetron 8 MG | [facility] | | | Disintegrating Oral Tablet | | + + + + | 2022-06-06 00:00 | DICYCLOMINE HCL | [facility] | + + + + | 2022-06-06 00:00 | dicyclomine hydrochloride | [facility] | | | 20 MG Oral Tablet | | + + + + Problems + + + + | date | description | facility | + + + + | 2015-01-28 00:00 | Bronchitis | [facility] | + + + + | 2018-06-26 00:00 | Contusion of face | [facility] | + + + + | 2018-06-26 00:00 | Contusion of left knee | [facility] | + + + + | 2022-05-27 00:00 | Acute gastritis | [facility] | + + + + | 2022-06-07 00:00 | Dehydration | [facility] | + + + + | 2022-06-07 00:00 | Abdominal pain | [facility] | + + + + | 2022-11-09 00:00 | Vomiting | [facility] | + + + + | 2022-11-09 [...] + + | 2023-01-25 08:23 | OTHER HALFWAY (CURRENT) | [facility] | | | DRUG [facility] | | + + + + | 2023-07-04 07:41 | GASTRITIS, UNSPECIFIED, | [facility] | | | WITHOUT BLEEDING | | + + + + | 2023-07-04 07:41 | NAUSEA WITH VOMITING, | [facility] | | | UNSPECIFIED | | + + + + | 2023-07-04 07:41 | OTHER HALFWAY (CURRENT) | [facility] | | | DRUG [facility] | | + + + + Procedures + + + + | date | description | facility | + + + + | 2022-06-08 00:00 | Laparoscopic | [facility] | | | cholecystectomy with | | | | cholangiography | | + + + + | 2022-06-08 00:00 | Laparoscopic | [facility] | | | cholecystectomy with | [...] +-------+ + + | | 2023-07-04 | [facility] | 417 | (missing) | (missing) | | (unavailable | 08:27:07 | [facility] | | | | + + + +-------+ + + Social History + + + + | date | description | facility | + + + + | 2022-06-09 00:00 | [facility] | + + + + [...]
[~2023-07-10 07:04] MED LIST changes: +CARAFATE1 GM PO; +ONDANSETRON HCL4 MG PO; +PROZAC10 MG PO
--- OUTSIDE RECORDS SUMMARY | 2023-07-10 07:13 | XMS ---
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 EGisela [facility] ([facility] MO[facility] [facility] [place] [facility] TOTAL 6 NOTE: Visits indicate total known visits. ED/UCC VISIT TRACKING (12 MO.) 07/10/2023 07:04 [facility] [place] TYPE: Emergency COMPLAINT: - ABD PAIN 07/04/2023 07:41 [facility] [place] TYPE: Emergency COMPLAINT: - VOMITING, ABD SWOLLEN/PAIN DIAGNOSES: - Gastritis, unspecified, without bleeding - Nausea with vomiting, unspecified - Other rn long term care (current) drug therapy 01/25/2023 08:23 [facility] [place] TYPE: Emergency COMPLAINT: - VOMITING DIAGNOSES: - Acute gastritis without bleeding - Diarrhea, unspecified - Other rn long term care (current) drug therapy 11/09/2022 11:34 [facility] [place] TYPE: Emergency COMPLAINT: - VOMITING DIAGNOSES: - Acquired absence of other specified parts of digestive tract - Nausea with vomiting, unspecified 10/10/2022 16:59 [facility] [place] TYPE: Emergency COMPLAINT: - Unspecified abdominal pain - Nausea with vomiting, unspecified DIAGNOSES: 1. Nausea with vomiting, unspecified 09/25/2022 08:52 [facility] [place] TYPE: Emergency DIAGNOSES: - Nausea with vomiting, unspecified - Abdominal Pain - Emesis INPATIENT VISIT TRACKING (12 MO.) No inpatient visits to display in this time frame [email or web address]
[2023-07-10 07:42] LABS: BASOPHILS 0.7 % (0-2); EOSINOPHILS 1.1 % (0-6); HEMATOCRIT 42.5 % (35.0-50.0); HEMOGLOBIN 14.2 g/dL (12.0-18.0); LYMPHOCYTES 15.3 % (24-44); MCH 28.8 (27-36); MCHC 33.4 g/dl (30-36); MCV 86.3 fl (81-99); MONOCYTES 6.3 % (0-12); NEUTROPHILS 76.6 % (39-80); PLATELET COUNT 506 K/uL (140-440); RBC 4.92 M/ul (4.3-5.7); RDW 12.9 (10.5-15.0)
[2023-07-10 07:51] LABS: ALBUMIN 4.7 g/dL (3.4-5.0); ALBUMIN/GLOBULIN RATIO 1.27 (1.1-2.4); ANION GAP 18.5 (7-21); BILIRUBIN, TOTAL 0.7 ng/dL (0.2-1.0); BUN/CREATININE RATIO 11.76 (6.0-28.6); CALCIUM 9.7 mg/dL (8.5-10.1); CREATININE, SERUM 0.68 mg/dL (0.55-1.02); POTASSIUM 3.5 mmol/L (3.5-5.1); PROTEIN, TOTAL 8.4 g/dL (6.4-8.2)
[2023-07-10] MEDS ORDERED: ONDANSETRON ODT4 MG PO (08:22)
[2023-07-10 08:41] VITALS: BP 122/84
== END 2023-07-10 08:42 | disposition home or self-care (01) ==
LOC: ED 07:04
PROVIDERS: Student in an Organized Health Care Education/Training Program
DX: K29.70 Gastritis, unspecified, without bleeding (principal); Z79.899 Other long term (current) drug therapy
CPT/HCPCS: 36415; 80053; 83690; 84703; 85025; 96361; 96374; 96375; 96376; 99284-25; J1200; J2765; J7030

== ENCOUNTER 2023-07-15 03:49 | Emergency (ER) | payer OTHER, BC ==
[~2023-07-15] VITALS: Ht 152.4 cm; Wt 56.7 kg
--- OUTSIDE RECORDS SUMMARY | ~2023-07-15 | XMS | Continuity of Care Document ---
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 Functional Status No information. Immunizations + + + + | date | description | facility | + + + + | 2018-06-26 00:00 | Tdap | [facility] | + + + + | 2022-06-09 00:00 | No vaccine administered | [facility] | + + + + Medications + + + + | date | description | facility | + + + + | 2023-07-10 00:00 | ONDANSETRON | [facility] | + + + + | 2022-06-09 00:00 | OXYCODONE | [facility] | | | HCL/ACETAMINOPHEN | | + + + + | 2022-06-09 00:00 | acetaminophen 325 MG / | [facility] | | | oxycodone hydrochloride 7.5 | | | | MG Oral T | | + + + + | 2022-06-09 00:00 | IBUPROFEN | [facility] | + + + + | 2022-06-09 00:00 | ibuprofen 600 MG Oral | [facility] | | | Tablet | | + + + + | 2022-06-06 00:00 | OMEPRAZOLE | [facility] | + + + + | 2022-06-06 00:00 | omeprazole 20 MG Delayed | [facility] | | | Release Oral Capsule | | + + + + | 2023-07-04 00:00 | ONDANSETRON HCL | [facility] | + + + + | 2023-07-10 00:00 | ONDANSETRON HCL | [facility] | + + + + | 2022-06-09 00:00 | ACETAMINOPHEN | [facility] | + + + + | 2022-06-09 00:00 | acetaminophen 500 MG Oral | [facility] | | | Tablet | | + + + + | 2023-07-04 00:00 | FLUOXETINE HCL | [facility] | + + + + | 2023-07-10 00:00 | FLUOXETINE HCL | [facility] | + + + + | 2023-07-04 00:00 | SUCRALFATE | [facility] | + + + + | 2015-01-28 00:00 | AZITHROMYCIN | [facility] | + + + + | 2015-01-28 00:00 | azithromycin 250 MG Oral | [facility] | | | Tablet [Zithromax] | | + + + + | 2022-05-27 00:00 | ONDANSETRON | [facility] | + + + + | 2023-01-25 00:00 | ONDANSETRON | [facility] | + + + + | 2022-05-27 00:00 | ondansetron 8 MG | [facility] | | | Disintegrating Oral Tablet | | + + + + | 2022-06-06 00:00 | DICYCLOMINE HCL | [facility] | + + + + | 2022-06-06 00:00 | dicyclomine hydrochloride | [facility] | | | 20 MG Oral Tablet | | + + + + Problems + + + + | date | description | facility | + + + + | 2015-01-28 00:00 | Bronchitis | [facility] | + + + + | 2018-06-26 00:00 | Contusion of face | [facility] | + + + + | 2018-06-26 00:00 | Contusion of left knee | [facility] | + + + + | 2022-05-27 00:00 | Acute gastritis | [facility] | + + + + | 2022-06-07 00:00 | Dehydration | [facility] | + + + + | 2022-06-07 00:00 | Abdominal pain | [facility] | + + + + | 2022-11-09 00:00 | Vomiting | [facility] | + + + + | 2022-11-09 11:34 | NAUSEA WITH VOMITING, | [facility] | | | UNSPECIFIED | | + + + + | 2022-11-09 11:34 | ACQUIRED ABSENCE OF OTHER | [facility] | | | SPECIFIED PARTS OF DIGES | | + + + + | 2023-01-25 08:23 | ACUTE GASTRITIS WITHOUT | [facility] | | | BLEEDING | | + + + + | 2023-01-25 08:23 | DIARRHEA, UNSPECIFIED | [facility] | + + + + | 2023-01-25 08:23 | OTHER HALF-WAY (CURRENT) | [facility] | | | DRUG THERAPY | | + + + + | 2023-07-04 07:41 | GASTRITIS, UNSPECIFIED, | [facility] | | | WITHOUT BLEEDING | | + + + + | 2023-07-04 07:41 | NAUSEA WITH VOMITING, | [facility] | | | UNSPECIFIED | | + + + + | 2023-07-04 07:41 | OTHER COLORER HIDES AND SKINS (CURRENT) | [facility] | | | DRUG [facility]APY | | + + + + | 2023-07-07 00:00 | Gastritis | [facility] | + + + + | 2023-07-10 07:04 | GASTRITIS, UNSPECIFIED, | [facility] | | | WITHOUT BLEEDING | | + + + + | 2023-07-10 07:04 | EPIGASTRIC PAIN | [facility] | + + + + | 2023-07-10 07:04 | OTHER COLORER HIDES AND SKINS (CURRENT) | [facility] | | | DRUG TH[facility]APY | | + + + + Procedures + + + + | date | description | facility | + + + + | 2022-06-08 00:00 | Laparoscopic | [facility] | | | cholecystectomy with | | | | cholangiography | | + + + + | 2022-06-08 00:00 | Laparoscopic | [facility] | | | cholecystectomy with | | | | cholangiography | | + + + + Results/Labs +--------+--------+ +---------+--------+---------+ | test | date | facility | value | unit | notes | +--------+--------+ +---------+--------+---------+ + + | Result panel 1 | + + + + + +--------+ + + | | 2022-05-27 | [facility] | 16.7 | (missing) | (missing) | | (unavailable | 13:35 | [facility] | | | | + + + +--------+ + + + + | Result panel 2 | + + + + + +--------+ + + | | 2022-05-27 | [facility] | 5.34 | (missing) | (missing) | | (unavailable | 13:35 | [facility] | | | | + + + +--------+ + + + + | Result panel 3 | + + + + + +--------+ + + | | 2022-05-27 | [facility] | 15.3 | (missing) | (missing) | | (unavailable | 13:35 | [facility] | | | | + + + +--------+ + + + + | Result panel 4 | + + + + + +--------+ + + | | 2022-05-27 | [facility] | 46.3 | (missing) | (missing) | | (unavailable | 13:35 | [facility] | | | | + + + +--------+ + + + + | Result panel 5 | + + + + + +--------+ + + | | 2022-05-27 | [facility] | 86.7 | (missing) | (missing) | | (unavailable | 13:35 | [facility] | | | | + + + +--------+ + + + + | Result panel 6 | + + + + + +--------+ + + | | 2022-05-27 | [facility] | 28.6 | (missing) | (missing) | | (unavailable | 13:35 | [facility] | | | | + + + +--------+ + + + + | Result panel 7 | + + + + + +--------+ + + | | 2022-05-27 | [facility] | 33.0 | (missing) | (missing) | | (unavailable | 13:35 | [facility] | | | | + + + +--------+ + + + + | Result panel 8 | + + + + + +--------+ + + | | 2022-05-27 | [facility] | 13.1 | (missing) | (missing) | | (unavailable | 13:35 | [facility] | | | | + + + +--------+ + + + + | Result panel 9 | + + + + + +-------+ + + | | 2022-05-27 | [facility] | 506 | (missing) | (missing) | | (unavailable | 13:35 | [facility] | | | | + + + +-------+ + + + + | Result panel 10 | + + + + + +------+ + + | | 2022-05-27 | [facility] | 94 | (missing) | (missing) | | (unavailable | 13:35 | [facility] | | | | + + + +------+ + + + + | Result panel 11 | + + + + + +-----+ + + | | 2022-05-27 | [facility] | 4 | (missing) | (missing) | | (unavailable | 13:35 | [facility] | | | | + + + +-----+ + + + + | Result panel 12 | + + + + + +-----+ + + | | 2022-05-27 | [facility] | 2 | (missing) | (missing) | | (unavailable | 13:35 | [facility] | | | | + + + +-----+ + + + + | Result panel 13 | + + + + + + + + + | | 2022-05-27 | [facility] | PRESENT | (missing) | (missing) | | (unavailable | 13:35 | [facility] | | | | + + + + + + + + + | Result panel 14 | + + + + + + + + + | | 2022-05-27 | [facility] | PRESENT | (missing) | (missing) | | (unavailable | 13:35 | [facility] | | | | + + + + + + + + + | Result panel 15 | + + + + + +-------+---------+ + | | 2022-05-27 | [facility] | 137 | mg/dL | (missing) | | (unavailable | 13:35 | [facility] | | | | + + + +-------+---------+ + + + | Result panel 16 | + + + + + +------+---------+ + | | 2022-05-27 | [facility] | 14 | mg/dL | (missing) | | (unavailable | 13:35 | [facility] | | | | + + + +------+---------+ + + + | Result panel 17 | + + + + + +--------+---------+ + | | 2022-05-27 | [facility] | 0.79 | mg/dL | (missing) | | (unavailable | 13:35 | [facility] | | | | + + + +--------+---------+ + + + | Result panel 18 | + + + + + +-------+ + + | | 2022-05-27 | [facility] | 110 | (missing) | (missing) | | (unavailable | 13:35 | [facility] | | | | + + + +-------+ + + + + | Result panel 19 | + + + + + +---------+ + + | | 2022-05-27 | [facility] | 17.72 | (missing) | (missing) | | (unavailable | 13:35 | [facility] | | | | + + + +---------+ + + + + | Result panel 20 | + + + + + +-------+ + + | | 2022-05-27 | [facility] | 139 | (missing) | (missing) | | (unavailable | 13:35 | [facility] | | | | + + + +-------+ + + + + | Result panel 21 | + + + + + +-------+ + + | | 2022-05-27 | [facility] | 3.5 | (missing) | (missing) | | (unavailable | 13:35 | [facility] | | | | + + + +-------+ + + + + | Result panel 22 | + + + + + +-------+ + + | | 2022-05-27 | [facility] | 102 | (missing) | (missing) | | (unavailable | 13:35 | [facility] | | | | + + + +-------+ + + + + | Result panel 23 | + + + + + +------+ + + | | 2022-05-27 | [facility] | 23 | (missing) | (missing) | | (unavailable | 13:35 | [facility] | | | | + + + +------+ + + + + | Result panel 24 | + + + + + +--------+ + + | | 2022-05-27 | [facility] | 17.5 | (missing) | (missing) | | (unavailable | 13:35 | [facility] | | | | + + + +--------+ + + + + | Result panel 25 | + + + + + +--------+---------+ + | | 2022-05-27 | [facility] | 10.0 | mg/dL | (missing) | | (unavailable | 13:35 | [facility] | | | | + + + +--------+---------+ + + + | Result panel 26 | + + + + + +-------+---------+ + | | 2022-05-27 | [facility] | 1.7 | mg/dL | (missing) | | (unavailable | 13:35 | [facility] | | | | + + + +-------+---------+ + + + | Result panel 27 | + + + + + +-------+ + + | | 2022-05-27 | [facility] | 8.8 | (missing) | (missing) | | (unavailable | 13:35 | [facility] | | | | + + + +-------+ + + + + | Result panel 28 | + + + + + +-------+ + + | | 2022-05-27 | [facility] | 4.8 | (missing) | (missing) | | (unavailable | 13:35 | [facility] | | | | + + + +-------+ + + + + | Result panel 29 | + + + + + +-------+ + + | | 2022-05-27 | [facility] | 4.0 | (missing) | (missing) | | (unavailable | 13:35 | [facility] | | | | + + + +-------+ + + + + | Result panel 30 | + + + + + +--------+ + + | | 2022-05-27 | [facility] | 1.20 | (missing) | (missing) | | (unavailable | 13:35 | [facility] | | | | + + + +--------+ + + + + | Result panel 31 | + + + + + +-------+ + + | | 2022-05-27 | [facility] | 1.4 | (missing) | (missing) | | (unavailable | 13:35 | [facility] | | | | + + + +-------+ + + + + | Result panel 32 | + + + + + +------+ + + | | 2022-05-27 | [facility] | 23 | (missing) | (missing) | | (unavailable | 13:35 | [facility] | | | | + + + +------+ + + + + | Result panel 33 | + + + + + +------+ + + | | 2022-05-27 | [facility] | 41 | (missing) | (missing) | | (unavailable | 13:35 | [facility] | | | | + + + +------+ + + + + | Result panel 34 | + + + + + +------+ + + | | 2022-05-27 | [facility] | 64 | (missing) | (missing) | | (unavailable | 13:35 | [facility] | | | | + + + +------+ + + + + | Result panel 35 | + + + + + + + + + | | 2022-05-27 | [facility] | NEGATIVE | (missing) | (missing) | | (unavailable | 13:35 | [facility] | | | | + + + + + + + + + | Result panel 36 | + + + + + + + + + | | 2022-05-27 | [facility] | PRESENT | (missing) | (missing) | | (unavailable | 13:35 | [facility] | | | | + + + + + + + + + | Result panel 37 | + + + + + + + + + | | 2022-05-27 | [facility] | PRESENT | (missing) | (missing) | | (unavailable | 13:35 | [facility] | | | | + + + + + + + + + | Result panel 38 | + + + + + +-------+---------+ + | | 2022-05-27 | [facility] | 1.7 | mg/dL | (missing) | | (unavailable | 13:35 | [facility] | | | | + + + +-------+---------+ + + + | Result panel 39 | + + + + + + + + + | | 2022-05-27 | [facility] | PRESENT | (missing) | (missing) | | (unavailable | 13:35 | [facility] | | | | + + + + + + + + + | Result panel 40 | + + + + + + + + + | | 2022-05-27 | [facility] | PRESENT | (missing) | (missing) | | (unavailable | 13:35 | [facility] | | | | + + + + + + + + + | Result panel 41 | + + + + + +-------+---------+ + | | 2022-05-27 | [facility] | 1.7 | mg/dL | (missing) | | (unavailable | 13:35 | [facility] | | | | + + + +-------+---------+ + + + | Result panel 42 | + + + + + + + + + | Blood | 2022-05-27 | [facility] | PRESENT | (missing) | (missing) | | microcytes | 13:35 | [facility] | | | | | detection by | | Hospital | | | | | light | | | | | | | microscopy | | | | | | + + + + + + + + + | Result panel 43 | + + + + + + + + + | Smudge cell | 2022-05-27 | [facility] | PRESENT | (missing) | (missing) | | detection | 13:35 | [facility] | | | [facility] | | | | + + + + + + + + + | Result panel 44 | + + + + + +-------+ + + | Serum or | 2022-05-27 | [facility] | 1.7 | (missing) | (missing) | | plasma | 13:35 | [facility] | | | | | magnesium | | Hospital | | | | | measurement | | | | | | | (mass/volume | | | | | | | ) | | | | | | + + + +-------+ + + + + | Result panel 45 | + + + + + + + + + | | 2022-05-27 | [facility] | YELLOW | (missing) | (missing) | | (unavailable | 14:50 | [facility] | | | | + + + + + + + + + | Result panel 46 | + + + + + +---------+ + + | | 2022-05-27 | [facility] | CLEAR | (missing) | (missing) | | (unavailable | 14:50 | [facility] | | | | + + + +---------+ + + + + | Result panel 47 | + + + + + + + + + | | 2022-05-27 | [facility] | NEGATIVE | (missing) | (missing) | | (unavailable | 14:50 | [facility] | | | | + + + + + + + + + | Result panel 48 | + + + + + + + + + | | 2022-05-27 | [facility] | POSITIVE | (missing) | (missing) | | (unavailable | 14:50 | [facility] | | | | + + + + + + + + + | Result panel 49 | + + + + + +--------+ + + | | 2022-05-27 | [facility] | >=80 | (missing) | (missing) | | (unavailable | 14:50 | [facility] | | | | + + + +--------+ + + + + | Result panel 50 | + + + + + +---------+ + + | | 2022-05-27 | [facility] | 1.010 | (missing) | (missing) | | (unavailable | 14:50 | [facility] | | | | + + + +---------+ + + + + | Result panel 51 | + + + + + + + + + | | 2022-05-27 | [facility] | NEGATIVE | (missing) | (missing) | | (unavailable | 14:50 | [facility] | | | | + + + + + + + + + | Result panel 52 | + + + + + +-------+ + + | | 2022-05-27 | [facility] | 7.0 | (missing) | (missing) | | (unavailable | 14:50 | [facility] | | | | + + + +-------+ + + + + | Result panel 53 | + + + + + +------+ + + | | 2022-05-27 | [facility] | 30 | (missing) | (missing) | | (unavailable | 14:50 | [facility] | | | | + + + +------+ + + + + | Result panel 54 | + + + + + + + + + | | 2022-05-27 | [facility] | NORMAL | (missing) | (missing) | | (unavailable | 14:50 | [facility] | | | | + + + + + + + + + | Result panel 55 | + + + + + + + + + | | 2022-05-27 | [facility] | NEGATIVE | (missing) | (missing) | | (unavailable | 14:50 | [facility] | | | | + + + + + + + + + | Result panel 56 | + + + + + + + + + | | 2022-05-27 | [facility] | NEGATIVE | (missing) | (missing) | | (unavailable | 14:50 | [facility] | | | | + + + + + + + + + | Result panel 57 | + + + + + + + + + | | 2022-05-27 | [facility] | CLEAN CATCH | (missing) | (missing) | | (unavailable | 14:50 | [facility] | | | | + + + + + + + + + | Result panel 58 | + + + + + + + + + | | 2022-05-27 | [facility] | YELLOW | (missing) | (missing) | | (unavailable | 14:50 | [facility] | | | | + + + + + + + + + | Result panel 59 | + + + + + +---------+ + + | | 2022-05-27 | [facility] | CLEAR | (missing) | (missing) | | (unavailable | 14:50 | [facility] | | | | + + + +---------+ + + + + | Result panel 60 | + + + + + + + + + | | 2022-05-27 | [facility] | NEGATIVE | (missing) | (missing) | | (unavailable | 14:50 | [facility] | | | | + + + + + + + + + | Result panel 61 | + + + + + + + + + | | 2022-05-27 | [facility] | POSITIVE | (missing) | (missing) | | (unavailable | 14:50 | [facility] | | | | + + + + + + + + + | Result panel 62 | + + + + + +--------+ + + | | 2022-05-27 | [facility] | >=80 | (missing) | (missing) | | (unavailable | 14:50 | [facility] | | | | + + + +--------+ + + + + | Result panel 63 | + + + + + +---------+ + + | | 2022-05-27 | [facility] | 1.010 | (missing) | (missing) | | (unavailable | 14:50 | [facility] | | | | + + + +---------+ + + + + | Result panel 64 | + + + + + + + + + | | 2022-05-27 | [facility] | NEGATIVE | (missing) | (missing) | | (unavailable | 14:50 | [facility] | | | | + + + + + + + + + | Result panel 65 | + + + + + +-------+ + + | | 2022-05-27 | [facility] | 7.0 | (missing) | (missing) | | (unavailable | 14:50 | [facility] | | | | + + + +-------+ + + + + | Result panel 66 | + + + + + +------+ + + | | 2022-05-27 | [facility] | 30 | (missing) | (missing) | | (unavailable | 14:50 | [facility] | | | | + + + +------+ + + + + | Result panel 67 | + + + + + + + + + | | 2022-05-27 | [facility] | NORMAL | (missing) | (missing) | | (unavailable | 14:50 | [facility] | | | | + + + + + + + + + | Result panel 68 | + + + + + + + + + | | 2022-05-27 | [facility] | NEGATIVE | (missing) | (missing) | | (unavailable | 14:50 | [facility] | | | | + + + + + + + + + | Result panel 69 | + + + + + + + + + | | 2022-05-27 | [facility] | NEGATIVE | (missing) | (missing) | | (unavailable | 14:50 | [facility] | | | | + + + + + + + + + | Result panel 70 | + + + + + + + + + | | 2022-05-27 | [facility] | CLEAN CATCH | (missing) | (missing) | | (unavailable | 14:50 | [facility] | | | | + + + + + + + + + | Result panel 71 | + + + + + + + + + | | 2022-05-27 | [facility] | YELLOW | (missing) | (missing) | | (unavailable | 14:50 | [facility] | | | | + + + + + + + + + | Result panel 72 | + + + + + +---------+ + + | | 2022-05-27 | [facility] | CLEAR | (missing) | (missing) | | (unavailable | 14:50 | [facility] | | | | + + + +---------+ + + + + | Result panel 73 | + + + + + + + + + | | 2022-05-27 | [facility] | NEGATIVE | (missing) | (missing) | | (unavailable | 14:50 | [facility] | | | | + + + + + + + + + | Result panel 74 | + + + + + + + + + | | 2022-05-27 | [facility] | POSITIVE | (missing) | (missing) | | (unavailable | 14:50 | [facility] | | | | + + + + + + + + + | Result panel 75 | + + + + + +--------+ + + | | 2022-05-27 | [facility] | >=80 | (missing) | (missing) | | (unavailable | 14:50 | [facility] | | | | + + + +--------+ + + + + | Result panel 76 | + + + + + +---------+ + + | | 2022-05-27 | [facility] | 1.010 | (missing) | (missing) | | (unavailable | 14:50 | [facility] | | | | + + + +---------+ + + + + | Result panel 77 | + + + + + + + + + | | 2022-05-27 | [facility] | NEGATIVE | (missing) | (missing) | | (unavailable | 14:50 | [facility] | | | | + + + + + + + + + | Result panel 78 | + + + + + +-------+ + + | | 2022-05-27 | [facility] | 7.0 | (missing) | (missing) | | (unavailable | 14:50 | [facility] | | | | + + + +-------+ + + + + | Result panel 79 | + + + + + +------+ + + | | 2022-05-27 | [facility] | 30 | (missing) | (missing) | | (unavailable | 14:50 | [facility] | | | | + + + +------+ + + + + | Result panel 80 | + + + + + + + + + | | 2022-05-27 | [facility] | NORMAL | (missing) | (missing) | | (unavailable | 14:50 | [facility] | | | | + + + + + + + + + | Result panel 81 | + + + + + + + + + | | 2022-05-27 | [facility] | NEGATIVE | (missing) | (missing) | | (unavailable | 14:50 | [facility] | | | | + + + + + + + + + | Result panel 82 | + + + + + + + + + | | 2022-05-27 | [facility] | NEGATIVE | (missing) | (missing) | | (unavailable | 14:50 | [facility] | | [facility] | | | | + + + + + + + + + | Result panel 83 | + + + + + + + + + | | 2022-05-27 | [facility] | CLEAN CATCH | (missing) | (missing) | | (unavailable | 14:50 | [facility] | | [facility] | | | | + + + + + + + + + | Result panel 84 | + + + + + + + + + | Color of | 2022-05-27 | [facility] | YELLOW | (missing) | (missing) | | Urine by | 14:50 | [facility] | | | | | Auto | | Hospital | | | | + + + + + + + + + | Result panel 85 | + + + + + +---------+ + + | Character | 2022-05-27 | [facility] | CLEAR | (missing) | (missing) | | of Urine | 14:50 | [facility] | | | | | | [facility] | | | | + + + +---------+ + + + + | Result panel 86 | + + + + + + + + + | Glucose | 2022-05-27 | [facility] | NEGATIVE | (missing) | (missing) | | [Presence] | 14:50 | [facility] | | | | | in Urine by | | Hospital | | | | | Test strip | | | | | | + + + + + + + + + | Result panel 87 | + + + + + + + + + | Urine total | 2022-05-27 | [facility] | POSITIVE | (missing) | (missing) | | bilirubin | 14:50 | [facility] | | | | | detection by | | Hospital | | | | | test strip | | | | | | + + + + + + + + + | Result panel 88 | + + + + + +--------+ + + | Urine | 2022-05-27 | [facility] | >=80 | (missing) | (missing) | | ketones | 14:50 | [facility] | | | | | detection by | | Hospital | | | | | test strip | | | | | | + + + +--------+ + + + + | Result panel 89 | + + + + + +---------+ + + | Specific | 2022-05-27 | [facility] | 1.010 | (missing) | (missing) | | gravity ur | 14:50 | [facility] | | | | | dipstick | | Hospital | | | | + + + +---------+ + + + + | Result panel 90 | + + + + + + + + + | Urine | 2022-05-27 | [facility] | NEGATIVE | (missing) | (missing) | | hemoglobin | 14:50 | [facility] | | | | | detection by | | Hospital | | | | | test strip | | | | | | + + + + + + + + + | Result panel 91 | + + + + + +-------+ + + | Urine pH | 2022-05-27 | [facility] | 7.0 | (missing) | (missing) | | measurement | 14:50 | [facility] | | | | | by test | | Hospital | | | | | strip | | | | | | + + + +-------+ + + + + | Result panel 92 | + + + + + +------+ + + | Protein | 2022-05-27 | [facility] | 30 | (missing) | (missing) | | urine test | 14:50 | [facility] | | | | | strip | | Hospital | | | | + + + +------+ + + + + | Result panel 93 | + + + + + + + + + | | 2022-05-27 | [facility] | NORMAL | (missing) | (missing) | | Urobilinogen | 14:50 | [facility] | | | | | | | [facility] | | | | | [Mass/volume | | | | | | | ] in Urine | | | | | | | by Test | | | | | | | strip | | | | | | + + + + + + + + + | Result panel 94 | + + + + + + + + + | Urine | 2022-05-27 | [facility] | NEGATIVE | (missing) | (missing) | | nitrite | 14:50 | [facility] | | | | | detection by | | Hospital | | | | | test strip | | | | | | + + + + + + + + + | Result panel 95 | + + + + + + + + + | Urine | 2022-05-27 | [facility] | NEGATIVE | (missing) | (missing) | | leukocyte | 14:50 | [facility] | | | | | esterase | | Hospital | | | | | detection by | | | | | | | dipstick | | | | | | + + + + + + + + + | Result panel 96 | + + + + + + + + + | Urinalysis | 2022-05-27 | [facility] | CLEAN CATCH | (missing) | (missing) | | specimen | 14:50 | [facility] | | | | | collection | | [facility] | | | | | method | | | | | | + + + + + + + + + | Result panel 97 | + + + + + +------+ + + | | 2022-06-06 | [facility] | 86 | (missing) | (missing) | | (unavailable | 07:25 | [facility] | | | | | ) | | [facility] | | | | + + + +------+ + + + + | Result panel 98 | + + + + + +-----+ + + | | 2022-06-06 | [facility] | 9 | (missing) | (missing) | | (unavailable | 07:25 | [facility] | | | | | ) | | [facility] | | | | + + + +-----+ + + + + | Result panel 99 | + + + + + +-----+ + + | | 2022-06-06 | [facility] | 3 | (missing) | (missing) | | (unavailable | 07:25 | [facility] | | | | | ) | | [facility] | | | | + + + +-----+ + + + + | Result panel 100 | + + + + + +-----+ + + | | 2022-06-06 | [facility] | 2 | (missing) | (missing) | | (unavailable | 07:25 | [facility] | | | [facility] ) | | [facility] | | | | + + + +-----+ + + + + | Result panel 101 | + + + + + +------+ + + | Manual | 2022-06-06 | [facility] | 86 | (missing) | (missing) | | blood | 07:25 | [facility] | | | | | segmented | | Hospital | | | | | neutrophils/ | | | | | | | 100 | | | | | | | leukocytes | | | | | | + + + +------+ + + + + | Result panel 102 | + + + + + +-----+ + + | Manual | 2022-06-06 | [facility] | 9 | (missing) | (missing) | | blood | 07:25 | [facility] | | | | | lymphocytes/ | | [facility] | | | | | 100 | | | | | | | leukocytes | | | | | | + + + +-----+ + + + + | Result panel 103 | + + + + + +-----+ + + | Manual | 2022-06-06 | [facility] | 3 | (missing) | (missing) | | blood | 07:25 | [facility] | | | | | monocytes/10 | | Hospital | | | | | 0 leukocytes | | | | | | | | | | | | | + + + +-----+ + + + + | Result panel 104 | + + + + + +-----+ + + | Manual | 2022-06-06 | [facility] | 2 | (missing) | (missing) | | blood | 07:25 | [facility] | | | | | eosinophils/ | | Hospital | | | | | 100 | | | | | | | leukocytes | | | | | | + + + +-----+ + + + + | Result panel 105 | + + + + + +------+ + + | | 2022-06-06 | [facility] | 86 | (missing) | (missing) | | (unavailable | 07:25 | [facility] | | | | | ) | | [facility] | | | | + + + +------+ + + + + | Result panel 106 | + + + + + +-----+ + + | | 2022-06-06 | [facility] | 9 | (missing) | (missing) | | (unavailable | 07:25 | [facility] | | | | | ) | | [facility] | | | | + + + +-----+ + + + + | Result panel 107 | + + + + + +-----+ + + | | 2022-06-06 | [facility] | 3 | (missing) | (missing) | | (unavailable | 07:25 | [facility] | | | | | ) | | [facility] | | | | + + + +-----+ + + + + | Result panel 108 | + + + + + +-----+ + + | | 2022-06-06 | [facility] | 2 | (missing) | (missing) | | (unavailable | 07:25 | [facility] | | | | | ) | | [facility] | | | | + + + +-----+ + + + + | Result panel 109 | + + + + + + + + + | | 2022-06-06 | [facility] | NEGATIVE | (missing) | (missing) | | (unavailable | 07:40 | [facility] | | | | | ) | | [facility] | | | | + + + + + + + + + | Result panel 110 | + + + + + + + + + | Serum or | 2022-06-06 | [facility] | NEGATIVE | (missing) | (missing) | | plasma | 07:40 | [facility] | | | | | choriogonado | | Hospital | | | | | tropin | | | | | | | ( | | | | | | | test) | | | | | | | detection | | | | | | + + + + + + + + + | Result panel 111 | + + + + + + + + + | | 2022-06-06 | [facility] | NEGATIVE | (missing) | (missing) | | (unavailable | 07:40 | [facility] | | | | | ) | | [facility] | | | | + + + + + + + + + | Result panel 112 | + + + + + +--------+ + + | | 2022-06-07 | [facility] | 16.0 | (missing) | (missing) | | (unavailable | 08:51 | [facility] | | | | | ) | | [facility] | | | | + + + +--------+ + + + + | Result panel 113 | + + + + + +--------+ + + | | 2022-06-07 | [facility] | 4.72 | (missing) | (missing) | | (unavailable | 08:51 | [facility] | | | | | ) | | [facility] | | | | + + + +--------+ + + + + | Result panel 114 | + + + + + +--------+ + + | | 2022-06-07 | [facility] | 13.6 | (missing) | (missing) | | (unavailable | 08:51 | [facility] | | | | | ) | | [facility] | | | | + + + +--------+ + + + + | Result panel 115 | + + + + + +--------+ + + | | 2022-06-07 | [facility] | 41.2 | (missing) | (missing) | | (unavailable | 08:51 | [facility] | | | | ) | | [facility] | | | | + + + +--------+ + + + + | Result panel 116 | + + + + + +--------+ + + | | 2022-06-07 | [facility] | 87.4 | (missing) | (missing) | | (unavailable | 08:51 | [facility] | | | | | ) | | [facility] | | | | + + + +--------+ + + + + | Result panel 117 | + + + + + +--------+ + + | | 2022-06-07 | [facility] | 28.9 | (missing) | (missing) | | (unavailable | 08:51 | [facility] | | | | | ) | | [facility] | | | | + + + +--------+ + + + + | Result panel 118 | + + + + + +--------+ + + | | 2022-06-07 | [facility] | 33.1 | (missing) | (missing) | | (unavailable | 08:51 | [facility] | | [facility] ) | | [facility] | | | | + + + +--------+ + + + + | Result panel 119 | + + + + + +--------+ + + | | 2022-06-07 | [facility] | 12.9 | (missing) | (missing) | | (unavailable | 08:51 | [facility] | | [facility] ) | | [facility] | | | | + + + +--------+ + + + + | Result panel 120 | + + + + + +-------+ + + | | 2022-06-07 | [facility] | 430 | (missing) | (missing) | | (unavailable | 08:51 | [facility] | | [facility] ) | | [facility] | | | | + + + +-------+ + + + + | Result panel 121 | + + + + + +--------+ + + | | 2022-06-07 | [facility] | 83.8 | (missing) | (missing) | | (unavailable | 08:51 | [facility] | | [facility] ) | | [facility] | | | | + + + +--------+ + + + + | Result panel 122 | + + + + + +-------+ + + | | 2022-06-07 | [facility] | 9.1 | (missing) | (missing) | | (unavailable | 08:51 | [facility] | | [facility] ) | | [facility] | | | | + + + +-------+ + + + + | Result panel 123 | + + + + + +-------+ + + | | 2022-06-07 | [facility] | 4.6 | (missing) | (missing) | | (unavailable | 08:51 | [facility] | | [facility] ) | | [facility] | | | | + + + +-------+ + + + + | Result panel 124 | + + + + + +-------+ + + | | 2022-06-07 | [facility] | 2.1 | (missing) | (missing) | | (unavailable | 08:51 | [facility] | | | | | ) | | [facility] | | | | + + + +-------+ + + + + | Result panel 125 | + + + + + +-------+ + + | | 2022-06-07 | [facility] | 0.4 | (missing) | (missing) | | (unavailable | 08:51 | [facility] | | | | | ) | | [facility] | | | | + + + +-------+ + + + + | Result panel 126 | + + + + + +-------+---------+ + | | 2022-06-07 | [facility] | 112 | mg/dL | (missing) | | (unavailable | 08:51 | [facility] | | | | | ) | | [facility] | | | | + + + +-------+---------+ + + + | Result panel 127 | + + + + + +-----+---------+ + | | 2022-06-07 | [facility] | 5 | mg/dL | (missing) | | (unavailable | 08:51 | [facility] | | | [facility] | ) | | [facility] | | | | + + + +-----+---------+ + + + | Result panel 128 | + + + + + +--------+---------+ + | | 2022-06-07 | [facility] | 0.76 | mg/dL | (missing) | | (unavailable | 08:51 | [facility] | | [facility] ) | | [facility] | | | | + + + +--------+---------+ + + + | Result panel 129 | + + + + + +-------+ + + | | 2022-06-07 | [facility] | 115 | (missing) | (missing) | | (unavailable | 08:51 | [facility] | | [facility] ) | | [facility] | | | | + + + +-------+ + + + + | Result panel 130 | + + + + + +--------+ + + | | 2022-06-07 | [facility] | 6.57 | (missing) | (missing) | | (unavailable | 08:51 | [facility] | | [facility] ) | | [facility] | | | | + + + +--------+ + + + + | Result panel 131 | + + + + + +-------+ + + | | 2022-06-07 | [facility] | 138 | (missing) | (missing) | | (unavailable | 08:51 | [facility] | | [facility] ) | | [facility] | | | | + + + +-------+ + + + + | Result panel 132 | + + + + + +-------+ + + | | 2022-06-07 | [facility] | 3.4 | (missing) | (missing) | | (unavailable | 08:51 | [facility] | | | | | ) | | [facility] | | | | + + + +-------+ + + + + | Result panel 133 | + + + + + +-------+ + + | | 2022-06-07 | [facility] | 102 | (missing) | (missing) | | (unavailable | 08:51 | [facility] | | [facility] ) | | [facility] | | | | + + + +-------+ + + + + | Result panel 134 | + + + + + +------+ + + | | 2022-06-07 | [facility] | 24 | (missing) | (missing) | | (unavailable | 08:51 | [facility] | | [facility] ) | | [facility] | | | | + + + +------+ + + + + | Result panel 135 | + + + + + +--------+ + + | | 2022-06-07 | [facility] | 15.4 | (missing) | (missing) | | (unavailable | 08:51 | [facility] | | [facility] ) | | [facility] | | | | + + + +--------+ + + + + | Result panel 136 | + + + + + +-------+---------+ + | | 2022-06-07 | [facility] | 8.9 | mg/dL | (missing) | | (unavailable | 08:51 | [facility] | | [facility] ) | | [facility] | | | | + + + +-------+---------+ + + + | Result panel 137 | + + + + + +-------+ + + | | 2022-06-07 | [facility] | 7.6 | (missing) | (missing) | | (unavailable | 08:51 | [facility] | | [facility] ) | | [facility] | | | | + + + +-------+ + + + + | Result panel 138 | + + + + + +-------+ + + | | 2022-06-07 | [facility] | 4.3 | (missing) | (missing) | | (unavailable | 08:51 | [facility] | | | [facility] | ) | | [facility] | | | | + + + +-------+ + + + + | Result panel 139 | + + + + + +-------+ + + | | 2022-06-07 | [facility] | 3.3 | (missing) | (missing) | | (unavailable | 08:51 | [facility] | | [facility] | ) | | [facility] | | | | + + + +-------+ + + + + | Result panel 140 | + + + + + +--------+ + + | | 2022-06-07 | [facility] | 1.30 | (missing) | (missing) | | (unavailable | 08:51 | [facility] | | [facility] | ) | | [facility] | | | | + + + +--------+ + + + + | Result panel 141 | + + + + + +-------+ + + | | 2022-06-07 | [facility] | 0.8 | (missing) | (missing) | | (unavailable | 08:51 | [facility] | | | | | ) | | [facility] | | | | + + + +-------+ + + + + | Result panel 142 | + + + + + +------+ + + | | 2022-06-07 | [facility] | 14 | (missing) | (missing) | | (unavailable | 08:51 | [facility] | | | | | ) | | [facility] | | | | + + + +------+ + + + + | Result panel 143 | + + + + + +------+ + + | | 2022-06-07 | [facility] | 16 | (missing) | (missing) | | (unavailable | 08:51 | [facility] | | | | | ) | | [facility] | | | | + + + +------+ + + + + | Result panel 144 | + + + + + +------+ + + | | 2022-06-07 | [facility] | 53 | (missing) | (missing) | | (unavailable | 08:51 | [facility] | | | | | ) | | [facility] | | | | + + + +------+ + + + + | Result panel 145 | + + + + + +------+ + + | | 2022-06-07 | [facility] | 61 | (missing) | (missing) | | (unavailable | 08:51 | [facility] | | | | | ) | | [facility] | | | | + + + +------+ + + + + | Result panel 146 | + + + + + +------+ + + | Serum or | 2022-06-07 | [facility] | 61 | (missing) | (missing) | | plasma | 08:51 | [facility] | | | | | lipase | | Hospital | | | | | measurement | | | | | | | (enzymatic | | | | | | | activity/vol | | | | | | | ume) | | | | | | + + + +------+ + + + + | Result panel 147 | + + + + + +------+ + + | | 2022-06-07 | [facility] | 61 | (missing) | (missing) | | (unavailable | 08:51 | [facility] | | | | | ) | | [facility] | | | | + + + +------+ + + + + | Result panel 148 | + + + + + + + + + | | 2022-06-07 | [facility] | NEGATIVE | (missing) | (missing) | | (unavailable | 11:50 | [facility] | | | | | ) | | [facility] | | | | + + + + + + + + + | Result panel 149 | + + + + + + + + + | | 2022-06-07 | [facility] | NEGATIVE | (missing) | (missing) | | (unavailable | 11:50 | [facility] | | | | | ) | | [facility] | | | | + + + + + + + + + | Result panel 150 | + + + + + + + + + | | 2022-06-07 | [facility] | NEGATIVE | (missing) | (missing) | | (unavailable | 11:50 | [facility] | | | | | ) | | [facility] | | | | + + + + + + + + + | Result panel 151 | + + + + + + + + + | | 2022-06-07 | [facility] | NEGATIVE | (missing) | (missing) | | (unavailable | 11:50 | [facility] | | | | | ) | | [facility] | | | | + + + + + + + + + | Result panel 152 | + + + + + + + + + | Respiratory | 2022-06-07 | [facility] | NEGATIVE | (missing) | (missing) | | specimen | 11:50 | [facility] | | | | | 2019 novel | | Hospital | | | | | coronavirus | | | | | | | RNA | | | | | | | detection | | | | | | + + + + + + + + + | Result panel 153 | + + + + + + + + + | Influenza | 2022-06-07 | [facility] | NEGATIVE | (missing) | (missing) | | virus A RNA | 11:50 | [facility] | | | | | [Presence] | | Hospital | | | | | in | | | | | | | Respiratory | | | | | | | specimen by | | | | | | | [facility] | | | | | | | withprobe | | | | | | | detection | | | | | | + + + + + + + + + | Result panel 154 | + + + + + + + + + | Influenza | 2022-06-07 | [facility] | NEGATIVE | (missing) | (missing) | | virus B RNA | 11:50 | [facility] | | | | | [Presence] | | Hospital | | | | | in | | | | | | | Respiratory | | | | | | | specimen by | | | | | | | [facility] | | | | | | | withprobe | | | | | | | detection | | | | | | + + + + + + + + + | Result panel 155 | + + + + + + + + + | Respiratory | 2022-06-07 | [facility] | NEGATIVE | (missing) | (missing) | | syncytial | 11:50 | [facility] | | | | | virus (RSV) | | Hospital | | | | | RNA | | | | | | | detection by | | | | | | | probe and | | | | | | | target | | | | | | | amplificatio | | | | | | | n method in | | | | | | | culture | | | | | | | isolate | | | | | | + + + + + + + + + | Result panel 156 | + + + + + + + + + | | 2022-06-07 | [facility] | NEGATIVE | (missing) | (missing) | | (unavailable | 11:50 | [facility] | | | | | ) | | [facility] | | | | + + + + + + + + + | Result panel 157 | + + + + + + + + + | | 2022-06-07 | [facility] | NEGATIVE | (missing) | (missing) | | (unavailable | 11:50 | [facility] | | | | | ) | | [facility] | | | | + + + + + + + + + | Result panel 158 | + + + + + + + + + | | 2022-06-07 | [facility] | NEGATIVE | (missing) | (missing) | | (unavailable | 11:50 | [facility] | | | | | ) | | [facility] | | | | + + + + + + + + + | Result panel 159 | + + + + + + + + + | | 2022-06-07 | [facility] | NEGATIVE | (missing) | (missing) | | (unavailable | 11:50 | [facility] | | | | | ) | | [facility] | | | | + + + + + + + + + | Result panel 160 | + + + + + +-------+ + + | Blood | 2022-06-08 | [facility] | 8.7 | (missing) | (missing) | | leukocytes | 05:15 | [facility] | | | | | automated | | Hospital | | | | | count | | | | | | | (number/volu | | | | | | | me) | | | | | | + + + +-------+ + + + + | Result panel 161 | + + + + + +--------+ + + | Blood | 2022-06-08 | [facility] | 3.93 | (missing) | (missing) | | erythrocytes | 05:15 | [facility] | | | | | automated | | Hospital | | | | | count | | | | | | | (number/volu | | | | | | | me) | | | | | | + + + +--------+ + + + + | Result panel 162 | + + + + + +--------+ + + | Blood | 2022-06-08 | [facility] | 11.6 | (missing) | (missing) | | hemoglobin | 05:15 | [facility] | | | | | measurement | | Hospital | | | | | (mass/volume | | | | | | | ) | | | | | | + + + +--------+ + + + + | Result panel 163 | + + + + + +--------+ + + | Automated | 2022-06-08 | [facility] | 33.7 | (missing) | (missing) | | blood | 05:15 | [facility] | | | | | hematocrit | | Hospital | | | | + + + +--------+ + + + + | Result panel 164 | + + + + + +--------+ + + | Automated | 2022-06-08 | [facility] | 85.8 | (missing) | (missing) | | erythrocyte | 05:15 | [facility] | | | | | mean | | Hospital | | | | | corpuscular | | | | | | | volume | | | | | | + + + +--------+ + + + + | Result panel 165 | + + + + + +--------+ + + | Automated | 2022-06-08 | [facility] | 29.6 | (missing) | (missing) | | erythrocyte | 05:15 | [facility] | | | | | mean | | Hospital | | | | | corpuscular | | | | | | | hemoglobin | | | | | | | (mass per | | | | | | | erythrocyte) | | | | | | | | | | | | | + + + +--------+ + + + + | Result panel 166 | + + + + + +--------+ + + | Automated | 2022-06-08 | [facility] | 34.5 | (missing) | (missing) | | erythrocyte | 05:15 | [facility] | | | | | mean | | Hospital | | | | | corpuscular | | | | | | | hemoglobin | | | | | | | concentratio | | | | | | | n | | | | | | | measurement | | | | | | | (mass/volume | | | | | | | ) | | | | | | + + + +--------+ + + + + | Result panel 167 | + + + + + +--------+ + + | Automated | 2022-06-08 | [facility] | 12.7 | (missing) | (missing) | | erythrocyte | 05:15 | [facility] | | | | | distribution | | Hospital | | | | | width | | | | | | + + + +--------+ + + + + | Result panel 168 | + + + + + +-------+ + + | Automated | 2022-06-08 | [facility] | 318 | (missing) | (missing) | | blood | 05:15 | [facility] | | | | | platelet | | Hospital | | | | | count | | | | | | | (count/volum | | | | | | | e) | | | | | | + + + +-------+ + + + + | Result panel 169 | + + + + + +--------+ + + | Automated | 2022-06-08 | [facility] | 53.3 | (missing) | (missing) | | blood | 05:15 | [facility] | | | | | neutrophil | | Hospital | | | | | count as | | | | | | | percentage | | | | | | | of total | | | | | | | leukocytes | | | | | | + + + +--------+ + + + + | Result panel 170 | + + + + + +--------+ + + | Automated | 2022-06-08 | [facility] | 33.6 | (missing) | (missing) | | blood | 05:15 | [facility] | | | | | lymphocyte | | Hospital | | | | | count as | | | | | | | percentage | | | | | | | ot total | | | | | | | leukocytes | | | | | | + + + +--------+ + + + + | Result panel 171 | + + + + + +-------+ + + | Automated | 2022-06-08 | [facility] | 8.0 | (missing) | (missing) | | blood | 05:15 | [facility] | | | | | monocyte | | Hospital | | | | | count as | | | | | | | percentage | | | | | | | of total | | | | | | | leukocytes | | | | | | + + + +-------+ + + + + | Result panel 172 | + + + + + +-------+ + + | Automated | 2022-06-08 | [facility] | 4.5 | (missing) | (missing) | | blood | 05:15 | [facility] | | | | | eosinophil | | Hospital | | | | | count as | | | | | | | percentage | | | | | | | of total | | | | | | | leukocytes | | | | | | + + + +-------+ + + + + | Result panel 173 | + + + + + +-------+ + + | Automated | 2022-06-08 | [facility] | 0.6 | (missing) | (missing) | | blood | 05:15 | [facility] | | | | | basophil | | Hospital | | | | | count as | | | | | | | percentage | | | | | | | of total | | | | | | | leukocytes | | | | | | + + + +-------+ + + + + | Result panel 174 | + + + + + +------+ + + | Serum or | 2022-06-08 | [facility] | 89 | (missing) | (missing) | | plasma | 05:15 | [facility] | | | | | glucose | | Hospital | | | | | measurement | | | | | | | (mass/volume | | | | | | | ) | | | | | | + + + +------+ + + + + | Result panel 175 | + + + + + +-----+ + + | Serum or | 2022-06-08 | [facility] | 6 | (missing) | (missing) | | plasma urea | 05:15 | [facility] | | | | | nitrogen | | Hospital | | | | | measurement | | | | | | | (mass/volume | | | | | | | ) | | | | | | + + + +-----+ + + + + | Result panel 176 | + + + + + +--------+ + + | Serum or | 2022-06-08 | [facility] | 0.76 | (missing) | (missing) | | plasma | 05:15 | [facility] | | | | | creatinine | | Hospital | | | | | measurement | | | | | | | (mass/volume | | | | | | | ) | | | | | | + + + +--------+ + + + + | Result panel 177 | + + + + + +-------+ + + | Glomerular | 2022-06-08 | [facility] | 115 | (missing) | (missing) | | filtration | 05:15 | [facility] | | | | | rate/1.73 sq | | Hospital | | | | | M.predicted | | | | | | | [Volume | | | | | | | Rate/Area] | | | | | | | inSerum, | | | | | | | Plasma or | | | | | | | Blood by | | | | | | | Creatinine-b | | | | | | | ased formula | | | | | | | (CKD-EPI | | | | | | | 2020) | | | | | | + + + +-------+ + + + + | Result panel 178 | + + + + + +--------+ + + | Serum or | 2022-06-08 | [facility] | 7.89 | (missing) | (missing) | | plasma urea | 05:15 | [facility] | | | | | nitrogen/cre | | Hospital | | | | | atinine mass | | | | | | | ratio | | | | | | + + + +--------+ + + + + | Result panel 179 | + + + + + +-------+ + + | Serum or | 2022-06-08 | [facility] | 142 | (missing) | (missing) | | plasma | 05:15 | [facility] | | | | | sodium | | Hospital | | | | | measurement | | | | | | | (moles/volum | | | | | | | e) | | | | | | + + + +-------+ + + + + | Result panel 180 | + + + + + +-------+ + + | Serum or | 2022-06-08 | [facility] | 3.7 | (missing) | (missing) | | plasma | 05:15 | [facility] | | | | | potassium | | Hospital | | | | | measurement | | | | | | | (moles/volum | | | | | | | e) | | | | | | + + + +-------+ + + + + | Result panel 181 | + + + + + +-------+ + + | Serum or | 2022-06-08 | [facility] | 108 | (missing) | (missing) | | plasma | 05:15 | [facility] | | | | | chloride | | Hospital | | | | | measurement | | | | | | | (moles/volum | | | | | | | e) | | | | | | + + + +-------+ + + + + | Result panel 182 | + + + + + +------+ + + | Serum or | 2022-06-08 | [facility] | 25 | (missing) | (missing) | | plasma | 05:15 | [facility] | | | | | carbon | | Hospital | | | | | dioxide, | | | | | | | total | | | | | | | measurement | | | | | | | (moles/volum | | | | | | | e) | | | | | | + + + +------+ + + + + | Result panel 183 | + + + + + +--------+ + + | Serum or | 2022-06-08 | [facility] | 12.7 | (missing) | (missing) | | plasma anion | 05:15 | [facility] | | | | | gap 4 | | Hospital | | | | + + + +--------+ + + + + | Result panel 184 | + + + + + +-------+ + + | Serum or | 2022-06-08 | [facility] | 8.2 | (missing) | (missing) | | plasma | 05:15 | [facility] | | | | | calcium | | Hospital | | | | | measurement | | | | | | | (mass/volume | | | | | | | ) | | | | | | + + + +-------+ + + + + | Result panel 185 | + + + + + +-------+ + + | Serum or | 2022-06-08 | [facility] | 6.0 | (missing) | (missing) | | plasma | 05:15 | [facility] | | | | | protein | | Hospital | | | | | measurement | | | | | | | (mass/volume | | | | | | | ) | | | | | | + + + +-------+ + + + + | Result panel 186 | + + + + + +-------+ + + | Serum or | 2022-06-08 | [facility] | 3.2 | (missing) | (missing) | | plasma | 05:15 | [facility] | | | | | albumin | | Hospital | | | | | measurement | | | | | | | (mass/volume | | | | | | | ) | | | | | | + + + +-------+ + + + + | Result panel 187 | + + + + + +-------+ + + | Serum | 2022-06-08 | [facility] | 2.8 | (missing) | (missing) | | globulin | 05:15 | [facility] | | | | | measurement | | [facility] | | | | | (mass/volume | | | | | | | ) | | | | | | + + + +-------+ + + + + | Result panel 188 | + + + + + +--------+ + + | Serum or | 2022-06-08 | [facility] | 1.14 | (missing) | (missing) | | plasma | 05:15 | [facility] | | | | | albumin/glob | | Hospital | | | | | ulin mass | | | | | | | ratio | | | | | | + + + +--------+ + + + + | Result panel 189 | + + + + + +-------+ + + | Serum or | 2022-06-08 | [facility] | 0.7 | (missing) | (missing) | | plasma total | 05:15 | [facility] | | | | | bilirubin | | [facility] | | | | | measurement | | | | | | | (mass/volume | | | | | | | ) | | | | | | + + + +-------+ + + + + | Result panel 190 | + + + + + +-----+ + + | Serum or | 2022-06-08 | [facility] | 9 | (missing) | (missing) | | plasma | 05:15 | [facility] | | | | | aspartate | | Hospital | | | | | aminotransfe | | | | | | | rase | | | | | | | measurement | | | | | | | (enzymatic | | | | | | | activity/vol | | | | | | | ume) | | | | | | + + + +-----+ + + + + | Result panel 191 | + + + + + +------+ + + | Serum or | 2022-06-08 | [facility] | 13 | (missing) | (missing) | | plasma | 05:15 | [facility] | | | | | alanine | | Hospital | | | | | aminotransfe | | | | | | | rase | | | | | | | measurement | | | | | | | (enzymatic | | | | | | | activity/vol | | | | | | | ume) | | | | | | + + + +------+ + + + + | Result panel 192 | + + + + + +------+ + + | Serum or | 2022-06-08 | [facility] | 39 | (missing) | (missing) | | plasma | 05:15 | [facility] | | | | | alkaline | | [facility] | | | | | phosphatase | | | | | | | measurement | | | | | | | (enzymatic | | | | | | | activity/vol | | | | | | | ume) | | | | | | + + + +------+ + + + + | Result panel 193 | + + + + + +-------+ + + | | 2022-06-08 | [facility] | 8.7 | (missing) | (missing) | | (unavailable | 05:15 | [facility] | | | | | ) | | [facility] | | | | + + + +-------+ + + + + | Result panel 194 | + + + + + +--------+ + + | | 2022-06-08 | [facility] | 3.93 | (missing) | (missing) | | (unavailable | 05:15 | [facility] | | | | | ) | | [facility] | | | | + + + +--------+ + + + + | Result panel 195 | + + + + + +--------+ + + | | 2022-06-08 | [facility] | 11.6 | (missing) | (missing) | | (unavailable | 05:15 | [facility] | | | | | ) | | [facility] | | | | + + + +--------+ + + + + | Result panel 196 | + + + + + +--------+ + + | | 2022-06-08 | [facility] | 33.7 | (missing) | (missing) | | (unavailable | 05:15 | [facility] | | | | | ) | | [facility] | | | | + + + +--------+ + + + + | Result panel 197 | + + + + + +--------+ + + | | 2022-06-08 | [facility] | 85.8 | (missing) | (missing) | | (unavailable | 05:15 | [facility] | | | | | ) | | [facility] | | | | + + + +--------+ + + + + | Result panel 198 | + + + + + +--------+ + + | | 2022-06-08 | [facility] | 29.6 | (missing) | (missing) | | (unavailable | 05:15 | [facility] | | | | | ) | | [facility] | | | | + + + +--------+ + + + + | Result panel 199 | + + + + + +--------+ + + | | 2022-06-08 | [facility] | 34.5 | (missing) | (missing) | | (unavailable | 05:15 | [facility] | | | | + + + +--------+ + + + + | Result panel 200 | + + + + + +--------+ + + | | 2022-06-08 | [facility] | 12.7 | (missing) | (missing) | | (unavailable | 05:15 | [facility] | | | | + + + +--------+ + + + + | Result panel 201 | + + + + + +-------+ + + | | 2022-06-08 | [facility] | 318 | (missing) | (missing) | | (unavailable | 05:15 | [facility] | | | | + + + +-------+ + + + + | Result panel 202 | + + + + + +--------+ + + | | 2022-06-08 | [facility] | 53.3 | (missing) | (missing) | | (unavailable | 05:15 | [facility] | | | | + + + +--------+ + + + + | Result panel 203 | + + + + + +--------+ + + | | 2022-06-08 | [facility] | 33.6 | (missing) | (missing) | | (unavailable | 05:15 | [facility] | | | | + + + +--------+ + + + + | Result panel 204 | + + + + + +-------+ + + | | 2022-06-08 | [facility] | 8.0 | (missing) | (missing) | | (unavailable | 05:15 | [facility] | | | | + + + +-------+ + + + + | Result panel 205 | + + + + + +-------+ + + | | 2022-06-08 | [facility] | 4.5 | (missing) | (missing) | | (unavailable | 05:15 | [facility] | | | | + + + +-------+ + + + + | Result panel 206 | + + + + + +-------+ + + | | 2022-06-08 | [facility] | 0.6 | (missing) | (missing) | | (unavailable | 05:15 | [facility] | | | | + + + +-------+ + + + + | Result panel 207 | + + + + + +------+---------+ + | | 2022-06-08 | [facility] | 89 | mg/dL | (missing) | | (unavailable | 05:15 | [facility] | | | | + + + +------+---------+ + + + | Result panel 208 | + + + + + +-----+---------+ + | | 2022-06-08 | [facility] | 6 | mg/dL | (missing) | | (unavailable | 05:15 | [facility] | | | | + + + +-----+---------+ + + + | Result panel 209 | + + + + + +--------+---------+ + | | 2022-06-08 | [facility] | 0.76 | mg/dL | (missing) | | (unavailable | 05:15 | [facility] | | | | + + + +--------+---------+ + + + | Result panel 210 | + + + + + +-------+ + + | | 2022-06-08 | [facility] | 115 | (missing) | (missing) | | (unavailable | 05:15 | [facility] | | | | + + + +-------+ + + + + | Result panel 211 | + + + + + +--------+ + + | | 2022-06-08 | [facility] | 7.89 | (missing) | (missing) | | (unavailable | 05:15 | [facility] | | | | + + + +--------+ + + + + | Result panel 212 | + + + + + +-------+ + + | | 2022-06-08 | [facility] | 142 | (missing) | (missing) | | (unavailable | 05:15 | [facility] | | | | + + + +-------+ + + + + | Result panel 213 | + + + + + +-------+ + + | | 2022-06-08 | [facility] | 3.7 | (missing) | (missing) | | (unavailable | 05:15 | [facility] | | | | + + + +-------+ + + + + | Result panel 214 | + + + + + +-------+ + + | | 2022-06-08 | [facility] | 108 | (missing) | (missing) | | (unavailable | 05:15 | [facility] | | | | + + + +-------+ + + + + | Result panel 215 | + + + + + +------+ + + | | 2022-06-08 | [facility] | 25 | (missing) | (missing) | | (unavailable | 05:15 | [facility] | | | | + + + +------+ + + + + | Result panel 216 | + + + + + +--------+ + + | | 2022-06-08 | [facility] | 12.7 | (missing) | (missing) | | (unavailable | 05:15 | [facility] | | | | + + + +--------+ + + + + | Result panel 217 | + + + + + +-------+---------+ + | | 2022-06-08 | [facility] | 8.2 | mg/dL | (missing) | | (unavailable | 05:15 | [facility] | | | | + + + +-------+---------+ + + + | Result panel 218 | + + + + + +-------+ + + | | 2022-06-08 | [facility] | 6.0 | (missing) | (missing) | | (unavailable | 05:15 | [facility] | | | | + + + +-------+ + + + + | Result panel 219 | + + + + + +-------+ + + | | 2022-06-08 | [facility] | 3.2 | (missing) | (missing) | | (unavailable | 05:15 | [facility] | | | | + + + +-------+ + + + + | Result panel 220 | + + + + + +-------+ + + | | 2022-06-08 | [facility] | 2.8 | (missing) | (missing) | | (unavailable | 05:15 | [facility] | | | | + + + +-------+ + + + + | Result panel 221 | + + + + + +--------+ + + | | 2022-06-08 | [facility] | 1.14 | (missing) | (missing) | | (unavailable | 05:15 | [facility] | | | | + + + +--------+ + + + + | Result panel 222 | + + + + + +-------+ + + | | 2022-06-08 | [facility] | 0.7 | (missing) | (missing) | | (unavailable | 05:15 | [facility] | | | | + + + +-------+ + + + + | Result panel 223 | + + + + + +-----+ + + | | 2022-06-08 | [facility] | 9 | (missing) | (missing) | | (unavailable | 05:15 | [facility] | | | | + + + +-----+ + + + + | Result panel 224 | + + + + + +------+ + + | | 2022-06-08 | [facility] | 13 | (missing) | (missing) | | (unavailable | 05:15 | [facility] | | | | + + + +------+ + + + + | Result panel 225 | + + + + + +------+ + + | | 2022-06-08 | [facility] | 39 | (missing) | (missing) | | (unavailable | 05:15 | [facility] | | | | + + + +------+ + + + + | Result panel 226 | + + +-------+ + + + + + | HCG | 2022-09-25 | [facility] | Negative | (missing) | (missing) | | | 11:34 | [facility] | | | | +-------+ + + + + + | HCG | 2022-09-25 | [facility] | Negative | (missing) | (missing) | | | 11:34 | [facility] | | | | +-------+ + + + + + + + | Result panel 227 | + + + + + +--------+ + + | | 2022-11-09 | [facility] | 11.6 | (missing) | (missing) | | (unavailable | 13:40:08 | [facility] | | | | + + + +--------+ + + + + | Result panel 228 | + + + + + +--------+ + + | | 2022-11-09 | [facility] | 4.90 | (missing) | (missing) | | (unavailable | 13:40:08 | [facility] | | | | + + + +--------+ + + + + | Result panel 229 | + + + + + +--------+ + + | | 2022-11-09 | [facility] | 14.0 | (missing) | (missing) | | (unavailable | 13:40:08 | [facility] | | | | + + + +--------+ + + + + | Result panel 230 | + + + + + +--------+ + + | | 2022-11-09 | [facility] | 41.4 | (missing) | (missing) | | (unavailable | 13:40:08 | [facility] | | | | + + + +--------+ + + + + | Result panel 231 | + + + + + +--------+ + + | | 2022-11-09 | [facility] | 84.4 | (missing) | (missing) | | (unavailable | 13:40:08 | [facility] | | | | + + + +--------+ + + + + | Result panel 232 | + + + + + +--------+ + + | | 2022-11-09 | [facility] | 28.5 | (missing) | (missing) | | (unavailable | 13:40:08 | [facility] | | | | + + + +--------+ + + + + | Result panel 233 | + + + + + +--------+ + + | | 2022-11-09 | [facility] | 33.8 | (missing) | (missing) | | (unavailable | 13:40:08 | [facility] | | | | + + + +--------+ + + + + | Result panel 234 | + + + + + +--------+ + + | | 2022-11-09 | [facility] | 14.0 | (missing) | (missing) | | (unavailable | 13:40:08 | [facility] | | | | + + + +--------+ + + + + | Result panel 235 | + + + + + +-------+ + + | | 2022-11-09 | [facility] | 398 | (missing) | (missing) | | (unavailable | 13:40:08 | [facility] | | | + + + +-------+ + + + + | Result panel 236 | + + + + + +--------+ + + | | 2022-11-09 | [facility] | 89.6 | (missing) | (missing) | | (unavailable | 13:40:08 | [facility] | | | | + + + +--------+ + + + + | Result panel 237 | + + + + + +-------+ + + | | 2022-11-09 | [facility] | 7.8 | (missing) | (missing) | | (unavailable | 13:40:08 | [facility] | | | | + + + +-------+ + + + + | Result panel 238 | + + + + + +-------+ + + | | 2022-11-09 | [facility] | 2.2 | (missing) | (missing) | | (unavailable | 13:40:08 | [facility] | | | | + + + +-------+ + + + + | Result panel 239 | + + + + + +-------+ + + | | 2022-11-09 | [facility] | 0.1 | (missing) | (missing) | | (unavailable | 13:40:08 | [facility] | | | | + + + +-------+ + + + + | Result panel 240 | + + + + + +-------+ + + | | 2022-11-09 | [facility] | 0.3 | (missing) | (missing) | | (unavailable | 13:40:08 | [facility] | | | | + + + +-------+ + + + + | Result panel 241 | + + + + + +-------+---------+ + | | 2022-11-09 | [facility] | 109 | mg/dL | (missing) | | (unavailable | 13:40:08 | [facility] | | | | + + + +-------+---------+ + + + | Result panel 242 | + + + + + +------+---------+ + | | 2022-11-09 | [facility] | 10 | mg/dL | (missing) | | (unavailable | 13:40:08 | [facility] | | | | + + + +------+---------+ + + + | Result panel 243 | + + + + + +--------+---------+ + | | 2022-11-09 | [facility] | 0.80 | mg/dL | (missing) | | (unavailable | 13:40:08 | [facility] | | | | + + + +--------+---------+ + + + | Result panel 244 | + + + + + +-------+ + + | | 2022-11-09 | [facility] | 107 | (missing) | (missing) | | (unavailable | 13:40:08 | [facility] | | | | + + + +-------+ + + + + | Result panel 245 | + + + + + +---------+ + + | | 2022-11-09 | [facility] | 12.50 | (missing) | (missing) | | (unavailable | 13:40:08 | [facility] | | | | + + + +---------+ + + + + | Result panel 246 | + + + + + +-------+ + + | | 2022-11-09 | [facility] | 141 | (missing) | (missing) | | (unavailable | 13:40:08 | [facility] | | | | + + + +-------+ + + + + | Result panel 247 | + + + + + +-------+ + + | | 2022-11-09 | [facility] | 3.5 | (missing) | (missing) | | (unavailable | 13:40:08 | [facility] | | | | + + + +-------+ + + + + | Result panel 248 | + + + + + +-------+ + + | | 2022-11-09 | [facility] | 104 | (missing) | (missing) | | (unavailable | 13:40:08 | [facility] | | | | + + + +-------+ + + + + | Result panel 249 | + + + + + +------+ + + | | 2022-11-09 | [facility] | 26 | (missing) | (missing) | | (unavailable | 13:40:08 | [facility] | | | | + + + +------+ + + + + | Result panel 250 | + + + + + +--------+ + + | | 2022-11-09 | [facility] | 14.5 | (missing) | (missing) | | (unavailable | 13:40:08 | [facility] | | | | + + + +--------+ + + + + | Result panel 251 | + + + + + +-------+---------+ + | | 2022-11-09 | [facility] | 9.3 | mg/dL | (missing) | | (unavailable | 13:40:08 | [facility] | | | | + + + +-------+---------+ + + + | Result panel 252 | + + + + + +-------+---------+ + | | 2022-11-09 | [facility] | 1.5 | mg/dL | (missing) | | (unavailable | 13:40:08 | [facility] | | | | + + + +-------+---------+ + + + | Result panel 253 | + + + + + +-------+ + + | | 2022-11-09 | [facility] | 8.3 | (missing) | (missing) | | (unavailable | 13:40:08 | [facility] | | | | + + + +-------+ + + + + | Result panel 254 | + + + + + +-------+ + + | | 2022-11-09 | [facility] | 4.6 | (missing) | (missing) | | (unavailable | 13:40:08 | [facility] | | | | + + + +-------+ + + + + | Result panel 255 | + + + + + +-------+ + + | | 2022-11-09 | [facility] | 3.7 | (missing) | (missing) | | (unavailable | 13:40:08 | [facility] | | | | + + + +-------+ + + + + | Result panel 256 | + + + + + +--------+ + + | | 2022-11-09 | [facility] | 1.24 | (missing) | (missing) | | (unavailable | 13:40:08 | [facility] | | | | + + + +--------+ + + + + | Result panel 257 | + + + + + +-------+ + + | | 2022-11-09 | [facility] | 0.9 | (missing) | (missing) | | (unavailable | 13:40:08 | [facility] | | | | + + + +-------+ + + + + | Result panel 258 | + + + + + +------+ + + | | 2022-11-09 | [facility] | 25 | (missing) | (missing) | | (unavailable | 13:40:08 | [facility] | | | | + + + +------+ + + + + | Result panel 259 | + + + + + +------+ + + | | 2022-11-09 | [facility] | 39 | (missing) | (missing) | | (unavailable | 13:40:08 | [facility] | | | | + + + +------+ + + + + | Result panel 260 | + + + + + +------+ + + | | 2022-11-09 | [facility] | 72 | (missing) | (missing) | | (unavailable | 13:40:08 | [facility] | | | | + + + +------+ + + + + | Result panel 261 | + + + + + + + + + | | 2022-11-09 | [facility] | NEGATIVE | (missing) | (missing) | | (unavailable | 13:40:08 | [facility] | | | | + + + + + + + + + | Result panel 262 | + + + + + + + + + | | 2022-11-09 | [facility] | YELLOW | (missing) | (missing) | | (unavailable | 14:50:08 | [facility] | | | | + + + + + + + + + | Result panel 263 | + + + + + +---------+ + + | | 2022-11-09 | [facility] | CLEAR | (missing) | (missing) | | (unavailable | 14:50:08 | [facility] | | | | + + + +---------+ + + + + | Result panel 264 | + + + + + + + + + | | 2022-11-09 | [facility] | NEGATIVE | (missing) | (missing) | | (unavailable | 14:50:08 | [facility] | | | | + + + + + + + + + | Result panel 265 | + + + + + + + + + | | 2022-11-09 | [facility] | NEGATIVE | (missing) | (missing) | | (unavailable | 14:50:08 | [facility] | | | | + + + + + + + + + | Result panel 266 | + + + + + +--------+ + + | | 2022-11-09 | [facility] | >=80 | (missing) | (missing) | | (unavailable | 14:50:08 | [facility] | | | | + + + +--------+ + + + + | Result panel 267 | + + + + + +---------+ + + | | 2022-11-09 | [facility] | 1.015 | (missing) | (missing) | | (unavailable | 14:50:08 | [facility] | | | | + + + +---------+ + + + + | Result panel 268 | + + + + + + + + + | | 2022-11-09 | [facility] | NEGATIVE | (missing) | (missing) | | (unavailable | 14:50:08 | [facility] | | | | + + + + + + + + + | Result panel 269 | + + + + + +-------+ + + | | 2022-11-09 | [facility] | 8.5 | (missing) | (missing) | | (unavailable | 14:50:08 | [facility] | | | | + + + +-------+ + + + + | Result panel 270 | + + + + + + + + + | | 2022-11-09 | [facility] | NEGATIVE | (missing) | (missing) | | (unavailable | 14:50:08 | [facility] | | | | + + + + + + + + + | Result panel 271 | + + + + + + + + + | | 2022-11-09 | [facility] | NORMAL | (missing) | (missing) | | (unavailable | 14:50:08 | [facility] | | | | + + + + + + + + + | Result panel 272 | + + + + + + + + + | | 2022-11-09 | [facility] | NEGATIVE | (missing) | (missing) | | (unavailable | 14:50:08 | [facility] | | | | + + + + + + + + + | Result panel 273 | + + + + + + + + + | | 2022-11-09 | [facility] | NEGATIVE | (missing) | (missing) | | (unavailable | 14:50:08 | [facility] | | | | + + + + + + + + + | Result panel 274 | + + + + + +-----+ + + | | 2023-01-25 | [facility] | 1 | (missing) | (missing) | | (unavailable | 08:40:08 | [facility] | | | | + + + +-----+ + + + + | Result panel 275 | + + + + + + + + + | | 2023-01-25 | [facility] | PRESENT | (missing) | (missing) | | (unavailable | 08:40:08 | [facility] | | | | + + + + + + + + + | Result panel 276 | + + + + + + + + + | | 2023-01-25 | [facility] | PRESENT | (missing) | (missing) | | (unavailable | 08:40:08 | [facility] | | | | + + + + + + + + + | Result panel 277 | + + + + + + + + + | | 2023-01-25 | [facility] | PRESENT | (missing) | (missing) | | (unavailable | 08:40:08 | [facility] | | | | + + + + + + + + + | Result panel 278 | + + + + + +-------+---------+ + | | 2023-01-25 | [facility] | 144 | mg/dL | (missing) | | (unavailable | 08:40:08 | [facility] | | | | + + + +-------+---------+ + + + | Result panel 279 | + + + + + +------+---------+ + | | 2023-01-25 | [facility] | 16 | mg/dL | (missing) | | (unavailable | 08:40:08 | [facility] | | | | + + + +------+---------+ + + + | Result panel 280 | + + + + + +--------+---------+ + | | 2023-01-25 | [facility] | 0.80 | mg/dL | (missing) | | (unavailable | 08:40:08 | [facility] | | | | + + + +--------+---------+ + + + | Result panel 281 | + + + + + +-------+ + + | | 2023-01-25 | [facility] | 107 | (missing) | (missing) | | (unavailable | 08:40:08 | [facility] | | | | + + + +-------+ + + + + | Result panel 282 | + + + + + +---------+ + + | | 2023-01-25 | [facility] | 20.00 | (missing) | (missing) | | (unavailable | 08:40:08 | [facility] | | | | + + + +---------+ + + + + | Result panel 283 | + + + + + +-------+ + + | | 2023-01-25 | [facility] | 137 | (missing) | (missing) | | (unavailable | 08:40:08 | [facility] | | | | + + + +-------+ + + + + | Result panel 284 | + + + + + +-------+ + + | | 2023-01-25 | [facility] | 3.7 | (missing) | (missing) | | (unavailable | 08:40:08 | [facility] | | | | + + + +-------+ + + + + | Result panel 285 | + + + + + +-------+ + + | | 2023-01-25 | [facility] | 102 | (missing) | (missing) | | (unavailable | 08:40:08 | [facility] | | | | + + + +-------+ + + + + | Result panel 286 | + + + + + +------+ + + | | 2023-01-25 | [facility] | 24 | (missing) | (missing) | | (unavailable | 08:40:08 | [facility] | | | | + + + +------+ + + + + | Result panel 287 | + + + + + +--------+ + + | | 2023-01-25 | [facility] | 14.7 | (missing) | (missing) | | (unavailable | 08:40:08 | [facility] | | | | + + + +--------+ + + + + | Result panel 288 | + + + + + +-------+---------+ + | | 2023-01-25 | [facility] | 9.1 | mg/dL | (missing) | | (unavailable | 08:40:08 | [facility] | | | | + + + +-------+---------+ + + + | Result panel 289 | + + + + + +-------+ + + | | 2023-01-25 | [facility] | 8.0 | (missing) | (missing) | | (unavailable | 08:40:08 | [facility] | | | | + + + +-------+ + + + + | Result panel 290 | + + + + + +-------+ + + | | 2023-01-25 | [facility] | 4.7 | (missing) | (missing) | | (unavailable | 08:40:08 | [facility] | | | | + + + +-------+ + + + + | Result panel 291 | + + + + + +-------+ + + | | 2023-01-25 | [facility] | 3.3 | (missing) | (missing) | | (unavailable | 08:40:08 | [facility] | | | | + + + +-------+ + + + + | Result panel 292 | + + + + + +--------+ + + | | 2023-01-25 | [facility] | 1.42 | (missing) | (missing) | | (unavailable | 08:40:08 | [facility] | | | | + + + +--------+ + + + + | Result panel 293 | + + + + + +-------+ + + | | 2023-01-25 | [facility] | 1.0 | (missing) | (missing) | | (unavailable | 08:40:08 | [facility] | | | | + + + +-------+ + + + + | Result panel 294 | + + + + + +------+ + + | | 2023-01-25 | [facility] | 20 | (missing) | (missing) | | (unavailable | 08:40:08 | [facility] | | | | + + + +------+ + + + + | Result panel 295 | + + + + + +------+ + + | | 2023-01-25 | [facility] | 27 | (missing) | (missing) | | (unavailable | 08:40:08 | [facility] | | | | + + + +------+ + + + + | Result panel 296 | + + + + + +------+ + + | | 2023-01-25 | [facility] | 61 | (missing) | (missing) | | (unavailable | 08:40:08 | [facility] | | | | + + + +------+ + + + + | Result panel 297 | + + + + + +------+ + + | | 2023-01-25 | [facility] | 42 | (missing) | (missing) | | (unavailable | 08:40:08 | [facility] | | | | + + + +------+ + + + + | Result panel 298 | + + + + + + + + + | | 2023-01-25 | [facility] | NEGATIVE | (missing) | (missing) | | (unavailable | 08:40:08 | [facility] | | | | + + + + + + + + + | Result panel 299 | + + + + + +--------+ + + | | 2023-01-25 | [facility] | 19.6 | (missing) | (missing) | | (unavailable | 08:40:08 | [facility] | | | | + + + +--------+ + + + + | Result panel 300 | + + + + + +--------+ + + | | 2023-01-25 | [facility] | 4.95 | (missing) | (missing) | | (unavailable | 08:40:08 | [facility] | | | | + + + +--------+ + + + + | Result panel 301 | + + + + + +--------+ + + | | 2023-01-25 | [facility] | 14.2 | (missing) | (missing) | | (unavailable | 08:40:08 | [facility] | | | | + + + +--------+ + + + + | Result panel 302 | + + + + + +--------+ + + | | 2023-01-25 | [facility] | 41.8 | (missing) | (missing) | | (unavailable | 08:40:08 | [facility] | | | | + + + +--------+ + + + + | Result panel 303 | + + + + + +--------+ + + | | 2023-01-25 | [facility] | 84.6 | (missing) | (missing) | | (unavailable | 08:40:08 | [facility] | | | | + + + +--------+ + + + + | Result panel 304 | + + + + + +--------+ + + | | 2023-01-25 | [facility] | 28.7 | (missing) | (missing) | | (unavailable | 08:40:08 | [facility] | | | | + + + +--------+ + + + + | Result panel 305 | + + + + + +--------+ + + | | 2023-01-25 | [facility] | 33.9 | (missing) | (missing) | | (unavailable | 08:40:08 | [facility] | | | | + + + +--------+ + + + + | Result panel 306 | + + + + + +--------+ + + | | 2023-01-25 | [facility] | 12.9 | (missing) | (missing) | | (unavailable | 08:40:08 | [facility] | | | | + + + +--------+ + + + + | Result panel 307 | + + + + + +-------+ + + | | 2023-01-25 | [facility] | 400 | (missing) | (missing) | | (unavailable | 08:40:08 | [facility] | | | | + + + +-------+ + + + + | Result panel 308 | + + + + + +------+ + + | | 2023-01-25 | [facility] | 91 | (missing) | (missing) | | (unavailable | 08:40:08 | [facility] | | | | + + + +------+ + + + + | Result panel 309 | + + + + + +-----+ + + | | 2023-01-25 | [facility] | 4 | (missing) | (missing) | | (unavailable | 08:40:08 | [facility] | | | | + + + +-----+ + + + + | Result panel 310 | + + + + + +-----+ + + | | 2023-01-25 | [facility] | 4 | (missing) | (missing) | | (unavailable | 08:40:08 | [facility] | | | | + + + +-----+ + + + + | Result panel 311 | + + + + + + + + + | | 2023-01-25 | [facility] | YELLOW | (missing) | (missing) | | (unavailable | 10:23:08 | [facility] | | | | + + + + + + + + + | Result panel 312 | + + + + + +---------+ + + | | 2023-01-25 | [facility] | CLEAR | (missing) | (missing) | | (unavailable | 10:23:08 | [facility] | | | | + + + +---------+ + + + + | Result panel 313 | + + + + + + + + + | | 2023-01-25 | [facility] | NEGATIVE | (missing) | (missing) | | (unavailable | 10:23:08 | [facility] | | | | + + + + + + + + + | Result panel 314 | + + + + + + + + + | | 2023-01-25 | [facility] | NEGATIVE | (missing) | (missing) | | (unavailable | 10:23:08 | [facility] | | | | + + + + + + + + + | Result panel 315 | + + + + + +--------+ + + | | 2023-01-25 | [facility] | >=80 | (missing) | (missing) | | (unavailable | 10:23:08 | [facility] | | | | + + + +--------+ + + + + | Result panel 316 | + + + + + +---------+ + + | | 2023-01-25 | [facility] | 1.020 | (missing) | (missing) | | (unavailable | 10:23:08 | [facility] | | | | + + + +---------+ + + + + | Result panel 317 | + + + + + +---------+ + + | | 2023-01-25 | [facility] | LARGE | (missing) | (missing) | | (unavailable | 10::08 | [facility] | | | | + + + +---------+ + + + + | Result panel 318 | + + + + + +-------+ + + | | 2023-01-25 | [facility] | 6.0 | (missing) | (missing) | | (unavailable | 10:23:08 | [facility] | | | | + + + +-------+ + + + + | Result panel 319 | + + + + + + + + + | | 2023-01-25 | [facility] | NEGATIVE | (missing) | (missing) | | (unavailable | 10:23:08 | [facility] | | | | + + + + + + + + + | Result panel 320 | + + + + + + + + + | | 2023-01-25 | [facility] | NORMAL | (missing) | (missing) | | (unavailable | 10:23:08 | [facility] | | | | + + + + + + + + + | Result panel 321 | + + + + + + + + + | | 2023-01-25 | [facility] | NEGATIVE | (missing) | (missing) | | (unavailable | 10:23:08 | [facility] | | | [facility] | | | | + + + + + + + + + | Result panel 322 | + + + + + +---------+ + + | | 2023-01-25 | [facility] | TRACE | (missing) | (missing) | | (unavailable | 10:23:08 | [facility] | | | | + + + +---------+ + + + + | Result panel 323 | + + + + + +---------+ + + | | 2023-01-25 | [facility] | 12-20 | (missing) | (missing) | | (unavailable | 10:23:08 | [facility] | | | | + + + +---------+ + + + + | Result panel 324 | + + + + + +-------+ + + | | 2023-01-25 | [facility] | 2-3 | (missing) | (missing) | | (unavailable | 10:23:08 | [facility] | | | | + + + +-------+ + + + + | Result panel 325 | + + + + + + + + + | | 2023-01-25 | [facility] | SQUAMOUS 1+ | (missing) | (missing) | | (unavailable | 10:23:08 | [facility] | | | | + + + + + + + + + | Result panel 326 | + + + + + + + + + | | 2023-01-25 | [facility] | NONE SEEN | (missing) | (missing) | | (unavailable | 10:23:08 | [facility] | | | | + + + + + + + + + | Result panel 327 | + + + + + +--------+ + + | | 2023-01-25 | [facility] | RARE | (missing) | (missing) | | (unavailable | 10:23:08 | [facility] | | | | + + + +--------+ + + + + | Result panel 328 | + + + + + + + + + | | 2023-01-25 | [facility] | NONE SEEN | (missing) | (missing) | | (unavailable | 10:23:08 | [facility] | | | | + + + + + + + + + | Result panel 329 | + + + + + +------+ + + | | 2023-01-25 | [facility] | No | (missing) | (missing) | | (unavailable | 10:23:08 | [facility] | | | | + + + +------+ + + + + | Result panel 330 | + + + + + + + + + | | 2023-01-25 | [facility] | CLEAN CATCH | (missing) | (missing) | | (unavailable | 10:23:08 | [facility] | | | | + + + + + + + + + | Result panel 331 | + + + + + +---------+ + + | | 2023-07-04 | [facility] | 1.075 | (missing) | (missing) | | (unavailable | | [facility] | | | | + + + +---------+ + + + + | Result panel 332 | + + + + + +---------+ + + | | 2023-07-04 | [facility] | 1.075 | (missing) | (missing) | | (unavailable | | [facility] | | | | + + + +---------+ + + + + | Result panel 333 | + + + + + +------+ + + | | 2023-07-04 | [facility] | 84 | (missing) | (missing) | | (unavailable | 08:27:07 | [facility] | | | | + + + +------+ + + + + | Result panel 334 | + + + + + +------+ + + | | 2023-07-04 | [facility] | 12 | (missing) | (missing) | | (unavailable | 08:27:07 | [facility] | | | | + + + +------+ + + + + | Result panel 335 | + + + + + +-----+ + + | | 2023-07-04 | [facility] | 4 | (missing) | (missing) | | (unavailable | 08:27:07 | [facility] | | | | + + + +-----+ + + + + | Result panel 336 | + + + + + + + + + | | 2023-07-04 | [facility] | SEE COMMENT | (missing) | (missing) | | (unavailable | 08::07 | [facility] | | | | + + + + + + + + + | Result panel 337 | + + + + + +--------+ + + | | 2023-07-04 | [facility] | 18.7 | (missing) | (missing) | | (unavailable | 08:27:07 | [facility] | | | | + + + +--------+ + + + + | Result panel 338 | + + + + + +--------+ + + | | 2023-07-04 | [facility] | 4.91 | (missing) | (missing) | | (unavailable | 08:27:07 | [facility] | | | | + + + +--------+ + + + + | Result panel 339 | + + + + + +--------+ + + | | 2023-07-04 | [facility] | 14.0 | (missing) | (missing) | | (unavailable | 08:27:07 | [facility] | | | | + + + +--------+ + + + + | Result panel 340 | + + + + + +--------+ + + | | 2023-07-04 | [facility] | 42.7 | (missing) | (missing) | | (unavailable | 08::07 | [facility] | | | | + + + +--------+ + + + + | Result panel 341 | + + + + + +--------+ + + | | 2023-07-04 | [facility] | 86.9 | (missing) | (missing) | | (unavailable | 08:27:07 | [facility] | | | | + + + +--------+ + + + + | Result panel 342 | + + + + + +--------+ + + | | 2023-07-04 | [facility] | 28.6 | (missing) | (missing) | | (unavailable | 08:27:07 | [facility] | | | | + + + +--------+ + + + + | Result panel 343 | + + + + + +--------+ + + | | 2023-07-04 | [facility] | 32.9 | (missing) | (missing) | | (unavailable | 08:27:07 | [facility] | | | | + + + +--------+ + + + + | Result panel 344 | + + + + + +--------+ + + | | 2023-07-04 | [facility] | 12.9 | (missing) | (missing) | | (unavailable | 08:27:07 | [facility] | | | | + + + +--------+ + + + + | Result panel 345 | + + + + + +-------+ + + | | 2023-07-04 | [facility] | 417 | (missing) | (missing) | | (unavailable | 08:27:07 | [facility] | | | | + + + +-------+ + + + + | Result panel 346 | + + + + + +------+ + + | | 2023-07-04 | [facility] | 84 | (missing) | (missing) | | (unavailable | 08:27:07 | [facility] | | | | + + + +------+ + + + + | Result panel 347 | + + + + + +------+ + + | | 2023-07-04 | [facility] | 12 | (missing) | (missing) | | (unavailable | 08:27:07 | [facility] | | | | + + + +------+ + + + + | Result panel 348 | + + + + + +-----+ + + | | 2023-07-04 | [facility] | 4 | (missing) | (missing) | | (unavailable | 08:27:07 | [facility] | | | | + + + +-----+ + + + + | Result panel 349 | + + + + + + + + + | | 2023-07-04 | [facility] | SEE COMMENT | (missing) | (missing) | | (unavailable | :07 | [facility] | | | | + + + + + + + + + | Result panel 350 | + + + + + +-------+---------+ + | | 2023-07-04 | [facility] | 120 | mg/dL | (missing) | | (unavailable | :07 | [facility] | | | | + + + +-------+---------+ + + + | Result panel 351 | + + + + + +------+---------+ + | | 2023-07-04 | [facility] | 10 | mg/dL | (missing) | | (unavailable | | [facility] | | | | + + + +------+---------+ + + + | Result panel 352 | + + + + + +--------+---------+ + | | 2023-07-04 | [facility] | 0.70 | mg/dL | (missing) | | (unavailable | :07 | [facility] | | | | + + + +--------+---------+ + + + | Result panel 353 | + + + + + +-------+ + + | | 2023-07-04 | [facility] | 126 | (missing) | (missing) | | (unavailable | 08::07 | [facility] | | | | + + + +-------+ + + + + | Result panel 354 | + + + + + +---------+ + + | | 2023-07-04 | [facility] | 14.28 | (missing) | (missing) | | (unavailable | 08:27:07 | [facility] | | | | + + + +---------+ + + + + | Result panel 355 | + + + + + +-------+ + + | | 2023-07-04 | [facility] | 137 | (missing) | (missing) | | (unavailable | 08:27:07 | [facility] | | | | + + + +-------+ + + + + | Result panel 356 | + + + + + +-------+ + + | | 2023-07-04 | [facility] | 3.0 | (missing) | (missing) | | (unavailable | 08:27:07 | [facility] | | | | + + + +-------+ + + + + | Result panel 357 | + + + + + +-------+ + + | | 2023-07-04 | [facility] | 100 | (missing) | (missing) | | (unavailable | 08:27:07 | [facility] | | | | + + + +-------+ + + + + | Result panel 358 | + + + + + +------+ + + | | 2023-07-04 | [facility] | 26 | (missing) | (missing) | | (unavailable | 08:27:07 | [facility] | | | | + + + +------+ + + + + | Result panel 359 | + + + + + +--------+ + + | | 2023-07-04 | [facility] | 14.0 | (missing) | (missing) | | (unavailable | 08:27:07 | [facility] | | | | + + + +--------+ + + + + | Result panel 360 | + + + + + +-------+---------+ + | | 2023-07-04 | [facility] | 9.3 | mg/dL | (missing) | | (unavailable | 08:27:07 | [facility] | | | | + + + +-------+---------+ + + + | Result panel 361 | + + + + + +-------+ + + | | 2023-07-04 | [facility] | 8.2 | (missing) | (missing) | | (unavailable | 08:27:07 | [facility] | | | | + + + +-------+ + + + + | Result panel 362 | + + + + + +-------+ + + | | 2023-07-04 | [facility] | 4.6 | (missing) | (missing) | | (unavailable | 08:27:07 | [facility] | | | | + + + +-------+ + + + + | Result panel 363 | + + + + + +-------+ + + | | 2023-07-04 | [facility] | 3.6 | (missing) | (missing) | | (unavailable | 08:07 | [facility] | | | | + + + +-------+ + + + + | Result panel 364 | + + + + + +--------+ + + | | 2023-07-04 | [facility] | 1.28 | (missing) | (missing) | | (unavailable | 08:27:07 | [facility] | | | | + + + +--------+ + + + + | Result panel 365 | + + + + + +-------+ + + | | 2023-07-04 | [facility] | 0.8 | (missing) | (missing) | | (unavailable | 08:27:07 | [facility] | | | | + + + +-------+ + + + + | Result panel 366 | + + + + + +------+ + + | | 2023-07-04 | [facility] | 16 | (missing) | (missing) | | (unavailable | 08:27:07 | [facility] | | | | + + + +------+ + + + + | Result panel 367 | + + + + + +------+ + + | | 2023-07-04 | [facility] | 26 | (missing) | (missing) | | (unavailable | 08:27:07 | [facility] | | | | + + + +------+ + + + + | Result panel 368 | + + + + + +------+ + + | | 2023-07-04 | [facility] | 55 | (missing) | (missing) | | (unavailable | 08:27:07 | [facility] | | | | + + + +------+ + + + + | Result panel 369 | + + + + + +------+ + + | | 2023-07-04 | [facility] | 62 | (missing) | (missing) | | (unavailable | 08:27:07 | [facility] | | | | + + + +------+ + + + + | Result panel 370 | + + + + + + + + + | | 2023-07-04 | [facility] | NEGATIVE | (missing) | (missing) | | (unavailable | 08:27:07 | [facility] | | | | + + + + + + + + + | Result panel 371 | + + + + + +---------+ + + | | 2023-07-04 | [facility] | 1.010 | (missing) | (missing) | | (unavailable | 11:16:07 | [facility] | | | | + + + +---------+ + + + + | Result panel 372 | + + + + + + + + + | | 2023-07-04 | [facility] | NEGATIVE | (missing) | (missing) | | (unavailable | 11:16:07 | [facility] | | | | + + + + + + + + + | Result panel 373 | + + + + + +-------+ + + | | 2023-07-04 | [facility] | 5.5 | (missing) | (missing) | | (unavailable | 11:16:07 | [facility] | | | | + + + +-------+ + + + + | Result panel 374 | + + + + + + + + + | | 2023-07-04 | [facility] | NEGATIVE | (missing) | (missing) | | (unavailable | 11:16:07 | [facility] | | | | + + + + + + + + + | Result panel 375 | + + + + + + + + + | | 2023-07-04 | [facility] | NORMAL | (missing) | (missing) | | (unavailable | 11:16:07 | [facility] | | | | + + + + + + + + + | Result panel 376 | + + + + + + + + + | | 2023-07-04 | [facility] | NEGATIVE | (missing) | (missing) | | (unavailable | 11:16:07 | [facility] | | | | + + + + + + + + + | Result panel 377 | + + + + + + + + + | | 2023-07-04 | [facility] | NEGATIVE | (missing) | (missing) | | (unavailable | 11:16:07 | [facility] | | | | + + + + + + + + + | Result panel 378 | + + + + + + + + + | | 2023-07-04 | [facility] | YELLOW | (missing) | (missing) | | (unavailable | 11:16:07 | [facility] | | | | + + + + + + + + + | Result panel 379 | + + + + + +---------+ + + | | 2023-07-04 | [facility] | CLEAR | (missing) | (missing) | | (unavailable | 11:16:07 | [facility] | | | | + + + +---------+ + + + + | Result panel 380 | + + + + + + + + + | | 2023-07-04 | [facility] | NEGATIVE | (missing) | (missing) | | (unavailable | 11:16:07 | [facility] | | | | + + + + + + + + + | Result panel 381 | + + + + + + + + + | | 2023-07-04 | [facility] | NEGATIVE | (missing) | (missing) | | (unavailable | 11:16:07 | [facility] | | | | + + + + + + + + + | Result panel 382 | + + + + + +---------+ + + | | 2023-07-04 | [facility] | SMALL | (missing) | (missing) | | (unavailable | 11:16:07 | [facility] | | | | + + + +---------+ + + + + | Result panel 383 | + + + + + +-------+ + + | | 2023-07-10 | [facility] | 9.9 | (missing) | (missing) | | (unavailable | 07:20:07 | [facility] | | | | + + + +-------+ + + + + | Result panel 384 | + + + + + +--------+ + + | | 2023-07-10 | [facility] | 4.92 | (missing) | (missing) | | (unavailable | 07:20:07 | [facility] | | | | + + + +--------+ + + + + | Result panel 385 | + + + + + +--------+ + + | | 2023-07-10 | [facility] | 14.2 | (missing) | (missing) | | (unavailable | 07:20:07 | [facility] | | | | + + + +--------+ + + + + | Result panel 386 | + + + + + +--------+ + + | | 2023-07-10 | [facility] | 42.5 | (missing) | (missing) | | (unavailable | 07:20:07 | [facility] | | | | + + + +--------+ + + + + | Result panel 387 | + + + + + +--------+ + + | | 2023-07-10 | [facility] | 86.3 | (missing) | (missing) | | (unavailable | 07:20:07 | [facility] | | | | + + + +--------+ + + + + | Result panel 388 | + + + + + +--------+ + + | | 2023-07-10 | [facility] | 28.8 | (missing) | (missing) | | (unavailable | 07:20:07 | [facility] | | | | + + + +--------+ + + + + | Result panel 389 | + + + + + +--------+ + + | | 2023-07-10 | [facility] | 33.4 | (missing) | (missing) | | (unavailable | 07:20:07 | [facility] | | | | + + + +--------+ + + + + | Result panel 390 | + + + + + +--------+ + + | | 2023-07-10 | [facility] | 12.9 | (missing) | (missing) | | (unavailable | 07:20:07 | [facility] | | | | + + + +--------+ + + + + | Result panel 391 | + + + + + +-------+ + + | | 2023-07-10 | [facility] | 506 | (missing) | (missing) | | (unavailable | 07:20:07 | [facility] | | | | + + + +-------+ + + + + | Result panel 392 | + + + + + +--------+ + + | | 2023-07-10 | [facility] | 76.6 | (missing) | (missing) | | (unavailable | 07:20:07 | [facility] | | | | + + + +--------+ + + + + | Result panel 393 | + + + + + +--------+ + + | | 2023-07-10 | [facility] | 15.3 | (missing) | (missing) | | (unavailable | 07:20:07 | [facility] | | | | + + + +--------+ + + + + | Result panel 394 | + + + + + +-------+ + + | | 2023-07-10 | [facility] | 6.3 | (missing) | (missing) | | (unavailable | 07:20:07 | [facility] | | | | + + + +-------+ + + + + | Result panel 395 | + + + + + +-------+ + + | | 2023-07-10 | [facility] | 1.1 | (missing) | (missing) | | (unavailable | 07:20:07 | [facility] | | | | + + + +-------+ + + + + | Result panel 396 | + + + + + +-------+ + + | | 2023-07-10 | [facility] | 0.7 | (missing) | (missing) | | (unavailable | 07:20:07 | [facility] | | | | + + + +-------+ + + + + | Result panel 397 | + + + + + +-------+---------+ + | | 2023-07-10 | [facility] | 114 | mg/dL | (missing) | | (unavailable | 07:20:07 | [facility] | | | | + + + +-------+---------+ + + + | Result panel 398 | + + + + + +-----+---------+ + | | 2023-07-10 | [facility] | 8 | mg/dL | (missing) | | (unavailable | 07:20:07 | [facility] | | | | + + + +-----+---------+ + + + | Result panel 399 | + + + + + +--------+---------+ + | | 2023-07-10 | [facility] | 0.68 | mg/dL | (missing) | | (unavailable | 07:20:07 | [facility] | | | | + + + +--------+---------+ + + + | Result panel 400 | + + + + + +-------+ + + | | 2023-07-10 | [facility] | 127 | (missing) | (missing) | | (unavailable | 07:20:07 | [facility] | | | | + + + +-------+ + + + + | Result panel 401 | + + + + + +---------+ + + | | 2023-07-10 | [facility] | 11.76 | (missing) | (missing) | | (unavailable | 07:20:07 | [facility] | | | | + + + +---------+ + + + + | Result panel 402 | + + + + + +-------+ + + | | 2023-07-10 | [facility] | 139 | (missing) | (missing) | | (unavailable | 07:20:07 | [facility] | | | | + + + +-------+ + + + + | Result panel 403 | + + + + + +-------+ + + | | 2023-07-10 | [facility] | 3.5 | (missing) | (missing) | | (unavailable | 07:20:07 | [facility] | | | | + + + +-------+ + + + + | Result panel 404 | + + + + + +-------+ + + | | 2023-07-10 | [facility] | 102 | (missing) | (missing) | | (unavailable | 07:20:07 | [facility] | | | | + + + +-------+ + + + + | Result panel 405 | + + + + + +------+ + + | | 2023-07-10 | [facility] | 22 | (missing) | (missing) | | (unavailable | 07:20:07 | [facility] | | | | | ) | | [facility] | | | | + + + +------+ + + + + | Result panel 406 | + + + + + +--------+ + + | | 2023-07-10 | [facility] | 18.5 | (missing) | (missing) | | (unavailable | 07:20:07 | [facility] | | | | + + + +--------+ + + + + | Result panel 407 | + + + + + +-------+---------+ + | | 2023-07-10 | [facility] | 9.7 | mg/dL | (missing) | | (unavailable | 07:20:07 | [facility] | | | | + + + +-------+---------+ + + + | Result panel 408 | + + + + + +-------+ + + | | 2023-07-10 | [facility] | 8.4 | (missing) | (missing) | | (unavailable | 07:20:07 | [facility] | | | | + + + +-------+ + + + + | Result panel 409 | + + + + + +-------+ + + | | 2023-07-10 | [facility] | 4.7 | (missing) | (missing) | | (unavailable | 07:20:07 | [facility] | | | | + + + +-------+ + + + + | Result panel 410 | + + + + + +-------+ + + | | 2023-07-10 | [facility] | 3.7 | (missing) | (missing) | | (unavailable | 07:20:07 | [facility] | | | | + + + +-------+ + + + + | Result panel 411 | + + + + + +--------+ + + | | 2023-07-10 | [facility] | 1.27 | (missing) | (missing) | | (unavailable | 07:20:07 | [facility] | | | | + + + +--------+ + + + + | Result panel 412 | + + + + + +-------+ + + | | 2023-07-10 | [facility] | 0.7 | (missing) | (missing) | | (unavailable | 07:20:07 | [facility] | | | | + + + +-------+ + + + + | Result panel 413 | + + + + + +------+ + + | | 2023-07-10 | [facility] | 19 | (missing) | (missing) | | (unavailable | 07:20:07 | [facility] | | | | + + + +------+ + + + + | Result panel 414 | + + + + + +------+ + + | | 2023-07-10 | [facility] | 25 | (missing) | (missing) | | (unavailable | 07:20:07 | [facility] | | | | + + + +------+ + + + + | Result panel 415 | + + + + + +------+ + + | | 2023-07-10 | [facility] | 57 | (missing) | (missing) | | (unavailable | 07:20:07 | [facility] | | | | + + + +------+ + + + + | Result panel 416 | + + + + + +------+ + + | | 2023-07-10 | [facility] | 73 | (missing) | (missing) | | (unavailable | 07:20:07 | [facility] | | | | + + + +------+ + + + + | Result panel 417 | + + + + + + + + + | | 2023-07-10 | [facility] | NEGATIVE | (missing) | (missing) | | (unavailable | 07:20:07 | [facility] | | | | + + + + + + + Social History + + + + | date | description | facility | + + + + | 2022-06-09 00:00 | Never smoker | [facility] | + + + + Vital Signs + + + +---------+ | date | measurement | value | units | + + + +---------+ | 2022-05-27 00:00 | BMI | 27.1 | kg/m2 | + + + +---------+ | 2022-05-27 00:00 | BP_diastolic | 69 | mmHg | + + + +---------+ | 2022-05-27 00:00 | BP_systolic | 103 | mmHg | + + + +---------+ | 2022-05-27 00:00 | heart_rate | 78 | /min | + + + +---------+ | 2022-05-27 00:00 | height_metric | 157.48 | cm | + + + +---------+ | 2022-05-27 00:00 | height_standard | 62 | in | + + + +---------+ | 2022-05-27 00:00 | o2_saturation | 97 | % | + + + +---------+ | 2022-05-27 00:00 | respiration_rate | 16 | /min | + + + +---------+ | 2022-05-27 00:00 | temperature_metric | 37.06 | C | | | | | | + + + +---------+ | 2022-05-27 00:00 | | 98.7 | F | | | temperature_standar | | | | | d | | | + + + +---------+ | 2022-05-27 00:00 | weight_metric | 67.13 | kg | + + + +---------+ | 2022-05-27 00:00 | weight_standard | 148 | lb | + + + +---------+ | 2022-06-06 00:00 | BMI | 23.9 | kg/m2 | + + + +---------+ | 2022-06-06 00:00 | BP_diastolic | 64 | mmHg | + + + +---------+ | 2022-06-06 00:00 | BP_systolic | 98 | mmHg | + + + +---------+ | 2022-06-06 00:00 | heart_rate | 64 | /min | + + + +---------+ | 2022-06-06 00:00 | height_metric | 157.48 | cm | + + + +---------+ | 2022-06-06 00:00 | height_standard | 62 | in | + + + +---------+ | 2022-06-06 00:00 | o2_saturation | 98 | % | + + + +---------+ | 2022-06-06 00:00 | respiration_rate | 17 | /min | + + + +---------+ | 2022-06-06 00:00 | temperature_metric | 36.72 | C | | | | | | + + + +---------+ | 2022-06-06 00:00 | | 98.1 | F | | | temperature_standar | | | | | d | | | + + + +---------+ | 2022-06-06 00:00 | weight_metric | 59.2 | kg | + + + +---------+ | 2022-06-06 00:00 | weight_standard | 130.51 | lb | + + + +---------+ | 2022-06-07 00:00 | BMI | 24.8 | kg/m2 | + + + +---------+ | 2022-06-07 00:00 | BP_diastolic | 62 | mmHg | + + + +---------+ | 2022-06-07 00:00 | BP_systolic | 108 | mmHg | + + + +---------+ | 2022-06-07 00:00 | heart_rate | 58 | /min | + + + +---------+ | 2022-06-07 00:00 | height_metric | 157.48 | cm | + + + +---------+ | 2022-06-07 00:00 | height_standard | 62 | in | + + + +---------+ | 2022-06-07 00:00 | o2_saturation | 98 | % | + + + +---------+ | 2022-06-07 00:00 | respiration_rate | 16 | /min | + + + +---------+ | 2022-06-07 00:00 | temperature_metric | 36.56 | C | | | | | | + + + +---------+ | 2022-06-07 00:00 | | 97.8 | F | | | temperature_standar | | | | | d | | | + + + +---------+ | 2022-06-07 00:00 | weight_metric | 61.6 | kg | + + + +---------+ | 2022-06-07 00:00 | weight_standard | 135.8 | lb | + + + +---------+ | 2022-06-09 00:00 | BP_diastolic | 59 | mmHg | + + + +---------+ | 2022-06-09 00:00 | BP_systolic | 96 | mmHg | + + + +---------+ | 2022-06-09 00:00 | heart_rate | 52 | /min | + + + +---------+ | 2022-06-09 00:00 | o2_saturation | 99 | % | + + + +---------+ | 2022-06-09 00:00 | respiration_rate | 16 | /min | + + + +---------+ | 2022-06-09 00:00 | temperature_metric | 36.56 | C | | | | | | + + + +---------+ | 2022-06-09 00:00 | | 97.8 | F | | | temperature_standar | | | | | d | | | + + + +---------+ | 2022-11-09 00:00 | BMI | 25.1 | kg/m2 | + + + +---------+ | 2022-11-09 00:00 | BP_diastolic | 57 | mmHg | + + + +---------+ | 2022-11-09 00:00 | BP_systolic | 94 | mmHg | + + + +---------+ | 2022-11-09 00:00 | heart_rate | 90 | /min | + + + +---------+ | 2022-11-09 00:00 | height_metric | 152.4 | cm | + + + +---------+ | 2022-11-09 00:00 | height_standard | 60 | in | + + + +---------+ | 2022-11-09 00:00 | o2_saturation | 97 | % | + + + +---------+ | 2022-11-09 00:00 | respiration_rate | 16 | /min | + + + +---------+ | 2022-11-09 00:00 | temperature_metric | 36.72 | C | | | | | | + + + +---------+ | 2022-11-09 00:00 | | 98.1 | F | | | temperature_standar | | | | | d | | | + + + +---------+ | 2022-11-09 00:00 | weight_metric | 58.29 | kg | + + + +---------+ | 2022-11-09 00:00 | weight_standard | 128.5 | lb | + + + +---------+ | 2023-01-25 00:00 | BMI | 25.4 | kg/m2 | + + + +---------+ | 2023-01-25 00:00 | BP_diastolic | 55 | mmHg | + + + +---------+ | 2023-01-25 00:00 | BP_systolic | 99 | mmHg | + + + +---------+ | 2023-01-25 00:00 | heart_rate | 69 | /min | + + + +---------+ | 2023-01-25 00:00 | height_metric | 152.4 | cm | + + + +---------+ | 2023-01-25 00:00 | height_standard | 60 | in | + + + +---------+ | 2023-01-25 00:00 | o2_saturation | 97 | % | + + + +---------+ | 2023-01-25 00:00 | respiration_rate | 16 | /min | + + + +---------+ | 2023-01-25 00:00 | temperature_metric | 36.78 | C | | | | | | + + + +---------+ | 2023-01-25 00:00 | | 98.2 | F | | | temperature_standar | | | | | d | | | + + + +---------+ | 2023-01-25 00:00 | weight_metric | 58.97 | kg | + + + +---------+ | 2023-01-25 00:00 | weight_standard | 130 | lb | + + + +---------+ | 2023-01-25 00:00 | weight_standard | 130.01 | lb | + + + +---------+ | 2023-07-04 00:00 | BMI | 24.5 | kg/m2 | + + + +---------+ | 2023-07-04 00:00 | BP_diastolic | 78 | mmHg | + + + +---------+ | 2023-07-04 00:00 | BP_systolic | 120 | mmHg | + + + +---------+ | 2023-07-04 00:00 | heart_rate | 76 | /min | + + + +---------+ | 2023-07-04 00:00 | height_metric | 152.4 | cm | + + + +---------+ | 2023-07-04 00:00 | height_standard | 60 | in | + + + +---------+ | 2023-07-04 00:00 | o2_saturation | 98 | % | + + + +---------+ | 2023-07-04 00:00 | respiration_rate | 17 | /min | + + + +---------+ | 2023-07-04 00:00 | temperature_metric | 36.44 | C | | | | | | + + + +---------+ | 2023-07-04 00:00 | | 97.6 | F | | | temperature_standar | | | | | d | | | + + + +---------+ | 2023-07-04 00:00 | weight_metric | 56.93 | kg | + + + +---------+ | 2023-07-04 00:00 | weight_standard | 125.5 | lb | + + + +---------+ | 2023-07-04 00:00 | weight_standard | 125.51 | lb | + + + +---------+ | 2023-07-10 00:00 | BMI | 24.4 | kg/m2 | + + + +---------+ | 2023-07-10 00:00 | BP_diastolic | 84 | mmHg | + + + +---------+ | 2023-07-10 00:00 | BP_systolic | 122 | mmHg | + + + +---------+ | 2023-07-10 00:00 | heart_rate | 71 | /min | + + + +---------+ | 2023-07-10 00:00 | height_metric | 152.4 | cm | + + + +---------+ | 2023-07-10 00:00 | height_standard | 60 | in | + + + +---------+ | 2023-07-10 00:00 | o2_saturation | 97 | % | + + + +---------+ | 2023-07-10 00:00 | respiration_rate | 17 | /min | + + + +---------+ | 2023-07-10 00:00 | temperature_metric | 36.06 | C | | | | | | + + + +---------+ | 2023-07-10 00:00 | | 96.9 | F | | | temperature_standar | | | | | d | | | + + + +---------+ | 2023-07-10 00:00 | weight_metric | 56.7 | kg | + + + +---------+ | 2023-07-10 00:00 | weight_standard | 125 | lb | + + + +---------+"
--- OUTSIDE RECORDS SUMMARY | ~2023-07-15 | XMS | Continuity of Care Document ---
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 | + + + + | 2022-06-09 00:00 | No vaccine administered | [facility] | + + + + Medications + + + + | date | description | facility | + + + + | 2023-07-10 00:00 | ONDANSETRON | [facility] | + + + + | 2022-06-09 00:00 | OXYCODONE | [facility] | | | HCL/ACETAMINOPHEN | | + + + + | 2022-06-09 00:00 | acetaminophen 325 MG / | [facility] | | | oxycodone hydrochloride 7.5 | | | | MG Oral T | | + + + + | 2022-06-09 00:00 | IBUPROFEN | [facility] | + + + + | 2022-06-09 00:00 | ibuprofen 600 MG Oral | [facility] | | | Tablet | | + + + + | 2022-06-06 00:00 | OMEPRAZOLE | [facility] | + + + + | 2022-06-06 00:00 | omeprazole 20 MG Delayed | [facility] | | | Release Oral Capsule | | + + + + | 2023-07-04 00:00 | ONDANSETRON HCL | [facility] | + + + + | 2023-07-10 00:00 | ONDANSETRON HCL | [facility] | + + + + | 2022-06-09 00:00 | ACETAMINOPHEN | [facility] | + + + + | 2022-06-09 00:00 | acetaminophen 500 MG Oral | [facility] | | | Tablet | | + + + + | 2023-07-04 00:00 | FLUOXETINE HCL | [facility] | + + + + | 2023-07-10 00:00 | FLUOXETINE HCL | [facility] | + + + + | 2023-07-04 00:00 | SUCRALFATE | [facility] | + + + + | 2015-01-28 00:00 | AZITHROMYCIN | [facility] | + + + + | 2015-01-28 00:00 | azithromycin 250 MG Oral | [facility] | | | Tablet [Zithromax] | | + + + + | 2022-05-27 00:00 | ONDANSETRON | [facility] | + + + + | 2023-01-25 00:00 | ONDANSETRON | [facility] | + + + + | 2022-05-27 00:00 | ondansetron 8 MG | [facility] | | | Disintegrating Oral Tablet | | + + + + | 2022-06-06 00:00 | DICYCLOMINE HCL | [facility] | + + + + | 2022-06-06 00:00 | dicyclomine hydrochloride | [facility] | | | 20 MG Oral Tablet | | + + + + Problems + + + + | date | description | facility | + + + + | 2015-01-28 00:00 | Bronchitis | [facility] | + + + + | 2018-06-26 00:00 | Contusion of face | [facility] | + + + + | 2018-06-26 00:00 | Contusion of left knee | [facility] | + + + + | 2022-05-27 00:00 | Acute gastritis | [facility] | + + + + | 2022-06-07 00:00 | Dehydration | [facility] | + + + + | 2022-06-07 00:00 | Abdominal pain | [facility] | + + + + | 2022-11-09 00:00 | Vomiting | [facility] | + + + + | 2022-11-09 [...] + + | 2023-01-25 08:23 | OTHER USP (CURRENT) | [facility] | | | DRUG THERAPY | | + + + + | 2023-07-04 07:41 | GASTRITIS, UNSPECIFIED, | [facility] | | | WITHOUT BLEEDING | | + + + + | 2023-07-04 07:41 | NAUSEA WITH VOMITING, | [facility] | | | UNSPECIFIED | | + + + + | 2023-07-04 07:41 | OTHER CURRICULUM MANAGER (CURRENT) | [facility] | | | DRUG THERAPY | | + + + + | 2023-07-07 00:00 | Gastritis | [facility] | + + + + | 2023-07-10 07:04 | GASTRITIS, UNSPECIFIED, | [facility] | | | WITHOUT BLEEDING | | + + + + | 2023-07-10 07:04 | EPIGASTRIC PAIN | [facility] | + + + + | 2023-07-10 07:04 | OTHER CURRICULUM MANAGER (CURRENT) | [facility] | | | DRUG THERAPY | | + + + + Procedures + + + + | date | description | facility | + + + + | 2022-06-08 00:00 | Laparoscopic | [facility] | | | cholecystectomy with | | | | cholangiography | | + + + + | 2022-06-08 00:00 | Laparoscopic | [facility] | | | cholecystectomy with | | [...] (missing) | | (unavailable | 08:51 | [facility] | | | | | ) | [...] (missing) | | (unavailable | 13:40:08 | [facility] | | | | | ) | [...] 2022-06-09 00:00 | [facility] smoker [facility] | + + + + Vital [...]
[~2023-07-15 03:49] MED LIST changes: +ONDANSETRON ODT4 MG PO
--- OUTSIDE RECORDS SUMMARY | 2023-07-15 03:54 | XMS ---
PreManage Notification: KATERIN MARINA Security Infectious Diseases Physician Events No recent Security Events currently on file CRITERIA MET - [facility] - 2 Visits in 30 Days CARE PROVIDERS LION MCKEE Nurse Practitioner: Family Current PHONE: [phone] ZION BLOCK [facility] Current PHONE: [phone] Juan has no Care Guidelines for this patient. EGisela VISIT COUNT (12 MO.) [place] 1 [facility] TOTAL 7 NOTE: Visits indicate total known visits. ED/UCC VISIT TRACKING (12 MO.) 07/15/2023 03:[facility] [place] TYPE: Emergency COMPLAINT: - ABD PAIN 07/10/2023 07:04 [facility] [place] TYPE: Emergency COMPLAINT: - ABD PAIN DIAGNOSES: - Epigastric pain - Gastritis, unspecified, without bleeding - Other termite inspector (current) drug therapy 07/04/2023 07:41 [facility] [place] TYPE: Emergency COMPLAINT: - VOMITING, ABD SWOLLEN/PAIN DIAGNOSES: - Gastritis, unspecified, without bleeding - Nausea with vomiting, unspecified - Other termite inspector (current) drug therapy 01/25/2023 08:23 [facility] TYPE: Emergency COMPLAINT: - VOMITING DIAGNOSES: - Acute gastritis without bleeding - Diarrhea, unspecified - Other termite inspector (current) drug therapy 11/09/2022 11:34 [facility] [place] TYPE: Emergency COMPLAINT: - VOMITING DIAGNOSES: - Acquired absence of other specified parts of digestive tract - Nausea with vomiting, unspecified 10/10/2022 16:59 [facility] [place] TYPE: Emergency COMPLAINT: - Unspecified abdominal pain - Nausea with vomiting, unspecified DIAGNOSES: 1. Nausea with vomiting, unspecified 09/25/2022 08:52 [facility] [place] TYPE: Emergency DIAGNOSES: - Nausea with vomiting, unspecified - Abdominal Pain - Emesis INPATIENT VISIT TRACKING (12 MO.) No inpatient visits to display in this time frame [email or web address]
[2023-07-15 04:16] LABS: HEMOGLOBIN 13.1 g/dL (12.0-18.0)
[2023-07-15 04:18] LABS: BASOPHILS 0.5 % (0-2); EOSINOPHILS 10.9 % (0-6); HEMATOCRIT 38.4 % (35.0-50.0); LYMPHOCYTES 30.9 % (24-44); MCH 29.4 (27-36); MCHC 34.2 g/dl (30-36); MCV 86.1 fl (81-99); MONOCYTES 8.9 % (0-12); NEUTROPHILS 48.8 % (39-80); PLATELET COUNT 430 K/uL (140-440); RBC 4.46 M/ul (4.3-5.7); RDW 12.9 (10.5-15.0)
[2023-07-15 04:32] LABS: ALBUMIN 4.4 g/dL (3.4-5.0); ALBUMIN/GLOBULIN RATIO 1.33 (1.1-2.4); ALKALINE PHOSPHATASE 57 U/L (46-116); ALT (SGPT) 26 U/L (14-59); ANION GAP 17.6 (7-21); AST (SGOT) 14 U/L (15-37); BILIRUBIN, TOTAL 0.6 ng/dL (0.2-1.0); BUN/CREATININE RATIO 15.62 (6.0-28.6); CALCIUM 9.4 mg/dL (8.5-10.1); CARBON DIOXIDE 22 mmol/L (21-32); CHLORIDE 103 mmol/L (98-107); CREATININE, SERUM 0.64 mg/dL (0.55-1.02); GLOMERULAR FILTRATION RATE,EST 129 mL/min (>60); POTASSIUM 3.6 mmol/L (3.5-5.1); PROTEIN, TOTAL 7.7 g/dL (6.4-8.2); UREA NITROGEN 10 mg/dL (7-18)
[2023-07-15] MEDS ORDERED: CARAFATE1 GM PO (05:18)
[2023-07-15 05:33] VITALS: BP 125/83
--- NOTE | 2023-07-15 07:24 | EKG ---
[facility] [address] [place], [place] [address] Signed Normal sinus rhythm Normal ECG No previous ECGs available Confirmed by NIKKI MENDOZA MD ([id number]) on 07/15/2023 7:24:42 AM Electronically Signed By: NIKKI MENDOZA 07/15/2324 PATIENT NAME: SELAMKATERIN CASEY Electrocardiogram DATE OF : [birth year] PHYSICIAN: NIKKI MENDOZA REPORT #: [id number] REPORT IS CONFIDENTIAL AND NOT TO BE RELEASED WITHOUT AUTHORIZATION
== END 2023-07-15 05:30 | disposition home or self-care (01) ==
LOC: ED 03:49
PROVIDERS: Family Medicine
DX: R10.13 Epigastric pain (principal); Z79.899 Other long term (current) drug therapy
CPT/HCPCS: 36415; 71045; 80053; 83690; 84484; 85025; 93005; 93010; 96374; 96375; 96376; 99284-25; J1200; J1790; J2405; J3490; J7121

== ENCOUNTER 2023-07-17 05:35 | Emergency (ER) | payer OTHER, BC ==
[~2023-07-17] VITALS: Ht 152.4 cm; Wt 58.6 kg
--- OUTSIDE RECORDS SUMMARY | ~2023-07-17 | XMS | Continuity of Care Document ---
Demographics + + + | Address | [address] | | | [place] [address] | + + + | Preferred Language | Unknown | + + + | Marital Status | Never | + + + | Roman Catholic Affiliation | Unknown | + + + | Race | White | + + + | Ethnic Group | Not or | + + + Author + + + | Author | [facility] | + + + | Organization | [facility] | + + + | Address | [address] | | | [place] [address] | + + + | Phone | | + + + Care Team Providers + + + + | Care Glass Processing Worker Name | Role | Phone | + [...] | 2018-06-26 00:00 | Tdap | [facility] | + + + + | 2022-06-09 00:00 | No vaccine administered | [facility] | + + + + Medications + + + + | date | description | facility | + + + + | 2023-07-10 00:00 | ONDANSETRON | [facility] | + + + + | 2022-06-09 00:00 | OXYCODONE | [facility] | | | HCL/ACETAMINOPHEN | | + + + + | 2022-06-09 00:00 | acetaminophen 325 MG / | [facility] | | | oxycodone hydrochloride 7.5 | | | | MG Oral T | | + + + + | 2022-06-09 00:00 | IBUPROFEN | [facility] | + + + + | 2022-06-09 00:00 | ibuprofen 600 MG Oral | [facility] | | | Tablet | | + + + + | 2022-06-06 00:00 | OMEPRAZOLE | [facility] | + + + + | 2022-06-06 00:00 | omeprazole 20 MG Delayed | [facility] | | | Release Oral Capsule | | + + + + | 2023-07-04 00:00 | ONDANSETRON HCL | [facility] | + + + + | 2023-07-10 00:00 | ONDANSETRON HCL | [facility] | + + + + | 2023-07-15 00:00 | ONDANSETRON HCL | [facility] | + + + + | 2022-06-09 00:00 | ACETAMINOPHEN | [facility] | + + + + | 2022-06-09 00:00 | acetaminophen 500 MG Oral | [facility] | | | Tablet | | + + + + | 2023-07-04 00:00 | FLUOXETINE HCL | [facility] | + + + + | 2023-07-10 00:00 | FLUOXETINE HCL | [facility] | + + + + | 2023-07-15 00:00 | FLUOXETINE HCL | [facility] | + + + + | 2023-07-04 00:00 | SUCRALFATE | [facility] | + + + + | 2023-07-15 00:00 | SUCRALFATE | [facility] | + + + + | 2015-01-28 00:00 | AZITHROMYCIN | [facility] | + + + + | 2015-01-28 00:00 | azithromycin 250 MG Oral | [facility] | | | Tablet [Zithromax] | | + + + + | 2022-05-27 00:00 | ONDANSETRON | [facility] | + + + + | 2023-01-25 00:00 | ONDANSETRON | [facility] | + + + + | 2022-05-27 00:00 | ondansetron 8 MG | [facility] | | | Disintegrating Oral Tablet | | + + + + | 2022-06-06 00:00 | DICYCLOMINE HCL | [facility] | + + + + | 2022-06-06 00:00 | dicyclomine hydrochloride | [facility] | | | 20 MG Oral Tablet | | + + + + Problems + + + + | date | description | facility | + + + + | 2015-01-28 00:00 | Bronchitis | [facility] | + + + + | 2018-06-26 00:00 | Contusion of face | [facility] | + + + + | 2018-06-26 00:00 | Contusion of left knee | [facility] | + + + + | 2022-05-27 00:00 | Acute gastritis | [facility] | + + + + | 2022-06-07 00:00 | Dehydration | [facility] | + + + + | 2022-06-07 00:00 | Abdominal pain | [facility] | + + + + | 2022-11-09 00:00 | Vomiting | [facility] | + + + + | 2022-11-09 [...] + + | 2023-01-25 08:23 | OTHER LONG-TERM (CURRENT) | [facility] | | [facility] | | + + + + | 2023-07-04 07:41 | GASTRITIS, UNSPECIFIED, | [facility] | | | WITHOUT BLEEDING | | + + + + | 2023-07-04 07:41 | NAUSEA WITH VOMITING, | [facility] | | | UNSPECIFIED | | + + + + | 2023-07-04 07:41 | 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) | [facility] | | | [facility] | | + + + + | 2023-07-07 00:00 | Gastritis | [facility] | + + + + | 2023-07-10 07:04 | GASTRITIS, UNSPECIFIED, | [facility] | | | WITHOUT BLEEDING | | + + + + | 2023-07-10 07:04 | EPIGASTRIC PAIN | [facility] | + + + + | 2023-07-10 07:04 | 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) | [facility] | | | [facility] | | + + + + | 2023-07-15 00:00 | Epigastric pain | [facility] | + + + + | 2023-07-15 03:49 | UPPER ABDOMINAL PAIN, | [facility] | | | UNSPECIFIED | | + + + + | 2023-07-15 03:49 | EPIGASTRIC PAIN | [facility] | + + + + | 2023-07-15 03:49 | OTHER LONG-TERM (CURRENT) | [facility] | | | [facility] | | + + + + Procedures + + + + | date | description | facility | + + + + | 2022-06-08 00:00 | Laparoscopic | [facility] | | | cholecystectomy with | | | | cholangiography | | + + + + | 2022-06-08 00:00 | Laparoscopic | [facility] | | | cholecystectomy with | | [...] 274 | + + + + + +--------+ + + | | 2023-01-25 | [facility] | 19.6 | (missing) | (missing) | | (unavailable | 08:40:08 | [facility] | | | | + + + +--------+ + + + + | Result panel 275 | + + + + + +--------+ + + | | 2023-01-25 | [facility] | 4.95 | (missing) | (missing) | | (unavailable | 08:40:08 | [facility] | | | | + + + +--------+ + + + + | Result panel 276 | + + + + + +--------+ + + | | 2023-01-25 | [facility] | 14.2 | (missing) | (missing) | | (unavailable | 08:40:08 | [facility] | | | | + + + +--------+ + + + + | Result panel 277 | + + + + + +--------+ + + | | 2023-01-25 | [facility] | 41.8 | (missing) | (missing) | | (unavailable | 08:40:08 | [facility] | | | | + + + +--------+ + + + + | Result panel 278 | + + + + + +--------+ + + | | 2023-01-25 | [facility] | 84.6 | (missing) | (missing) | | (unavailable | 08:40:08 | [facility] | | | | + + + +--------+ + + + + | Result panel 279 | + + + + + +--------+ + + | | 2023-01-25 | [facility] | 28.7 | (missing) | (missing) | | (unavailable | 08:40:08 | [facility] | | | | + + + +--------+ + + + + | Result panel 280 | + + + + + +--------+ + + | | 2023-01-25 | [facility] | 33.9 | (missing) | (missing) | | (unavailable | 08:40:08 | [facility] | | | | + + + +--------+ + + + + | Result panel 281 | + + + + + +--------+ + + | | 2023-01-25 | [facility] | 12.9 | (missing) | (missing) | | (unavailable | 08:40:08 | [facility] | | | | + + + +--------+ + + + + | Result panel 282 | + + + + + +-------+ + + | | 2023-01-25 | [facility] | 400 | (missing) | (missing) | | (unavailable | 08:40:08 | [facility] | | | | + + + +-------+ + + + + | Result panel 283 | + + + + + +------+ + + | | 2023-01-25 | [facility] | 91 | (missing) | (missing) | | (unavailable | 08:40:08 | [facility] | | | | + + + +------+ + + + + | Result panel 284 | + + + + + +-----+ + + | | 2023-01-25 | [facility] | 4 | (missing) | (missing) | | (unavailable | 08:40:08 | [facility] | | | | + + + +-----+ + + + + | Result panel 285 | + + + + + +-----+ + + | | 2023-01-25 | [facility] | 4 | (missing) | (missing) | | (unavailable | 08:40:08 | [facility] | | | | + + + +-----+ + + + + | Result panel 286 | + + + + + +-----+ + + | | 2023-01-25 | [facility] | 1 | (missing) | (missing) | | (unavailable | 08:40:08 | [facility] | | | | + + + +-----+ + + + + | Result panel 287 | + + + + + + + + + | | 2023-01-25 | [facility] | PRESENT | (missing) | (missing) | | (unavailable | 08:40:08 | [facility] | | | | + + + + + + + + + | Result panel 288 | + + + + + + + + + | | 2023-01-25 | [facility] | PRESENT | (missing) | (missing) | | (unavailable | 08:40:08 | [facility] | | | | + + + + + + + + + | Result panel 289 | + + + + + + + + + | | 2023-01-25 | [facility] | PRESENT | (missing) | (missing) | | (unavailable | 08:40:08 | [facility] | | | | + + + + + + + + + | Result panel 290 | + + + + + +-------+---------+ + | | 2023-01-25 | [facility] | 144 | mg/dL | (missing) | | (unavailable | 08:40:08 | [facility] | | | | + + + +-------+---------+ + + + | Result panel 291 | + + + + + +------+---------+ + | | 2023-01-25 | [facility] | 16 | mg/dL | (missing) | | (unavailable | 08:40:08 | [facility] | | | | + + + +------+---------+ + + + | Result panel 292 | + + + + + +--------+---------+ + | | 2023-01-25 | [facility] | 0.80 | mg/dL | (missing) | | (unavailable | 08:40:08 | [facility] | | | | + + + +--------+---------+ + + + | Result panel 293 [...] 294 | + + + + + +---------+ + + | | 2023-01-25 | [facility] | 20.00 | (missing) | (missing) | | (unavailable | 08:40:08 | [facility] | | | | + + + +---------+ + + + + | Result panel 295 | + + + + + +-------+ + + | | 2023-01-25 | [facility] | 137 | (missing) | (missing) | | (unavailable | 08:40:08 | [facility] | | | | + + + +-------+ + + + + | Result panel 296 | + + + + + +-------+ + + | | 2023-01-25 | [facility] | 3.7 | (missing) | (missing) | | (unavailable | 08:40:08 | [facility] | | | | + + + +-------+ + + + + | Result panel 297 | + + + + + +-------+ + + | | 2023-01-25 | [facility] | 102 | (missing) | (missing) | | (unavailable | 08:40:08 | [facility] | | | | + + + +-------+ + + + + | Result panel 298 | + + + + + +------+ [...] 300 | + + + + + +-------+---------+ + | | 2023-01-25 | [facility] | 9.1 | mg/dL | (missing) | | (unavailable | 08:40:08 | [facility] | | | | + + + +-------+---------+ + + + | Result panel 301 | + + + + + +-------+ + + | | 2023-01-25 | [facility] | 8.0 | (missing) | (missing) | | (unavailable | 08:40:08 | [facility] | | | | + + + +-------+ + + + + | Result panel 302 | + + + + + +-------+ + + | | 2023-01-25 | [facility] | 4.7 | (missing) | (missing) | | (unavailable | 08:40:08 | [facility] | | | | + + + +-------+ + + + + | Result panel 303 | + + + + + +-------+ [...] 305 | + + + + + +-------+ + + | | 2023-01-25 | [facility] | 1.0 | (missing) | (missing) | | (unavailable | 08:40:08 | [facility] | | | | + + + +-------+ + + + + | Result panel 306 | + + + + + +------+ + + | | 2023-01-25 | [facility] | 20 | (missing) | (missing) | | (unavailable | 08:40:08 | [facility] | | | | + + + +------+ + + + + | Result panel 307 | + + + + + +------+ [...] 309 | + + + + + +------+ + + | | 2023-01-25 | [facility] | 42 | (missing) | (missing) | | (unavailable | 08:40:08 | [facility] | | | | + + + +------+ + + + + | Result panel 310 | + + + + + + [...] (missing) | (missing) | | (unavailable | 08:12:07 | [facility] | | | | + + + +---------+ + + + + | Result panel 332 | + + + + + +---------+ + + | | 2023-07-04 | [facility] | 1.075 | (missing) | (missing) | | (unavailable | 08:12:07 | [facility] | | | | + + + +---------+ + + + + | Result panel 333 | + + + + + +---------+ + + | | 2023-07-04 | [facility] | 1.075 | (missing) | (missing) | | (unavailable | 08:12:07 | [facility] | | | | | [...] 335 | + + + + + +--------+ + + | | 2023-07-04 | [facility] | 18.7 | (missing) | (missing) | | (unavailable | 08::07 | [facility] | | | | + + + +--------+ + + + + | Result panel 336 | + + + + + +--------+ [...] (missing) | (missing) | | (unavailable | ::07 | [facility] | | | | | [...] 343 | + + + + + +-------+ + + | | 2023-07-04 | [facility] | 417 | (missing) | (missing) | | (unavailable | 08::07 | [facility] | | | | + + + +-------+ + + + + | Result panel 344 | + + + + + +------+ + + | | 2023-07-04 | [facility] | 84 | (missing) | (missing) | | (unavailable | 08:27:07 | [facility] | | | | + + + +------+ + + + + | Result panel 345 | + + + + + +------+ + + | | 2023-07-04 | [facility] | 12 | (missing) | (missing) | | (unavailable | 08:27:07 | [facility] | | | | + + + +------+ + + + + | Result panel 346 | + + + + + +-----+ + + | | 2023-07-04 | [facility] | 4 | (missing) | (missing) | | (unavailable | 08:27:07 | [facility] | | | | + + + +-----+ + + + + | Result panel 347 | + + + + + + + + + | | 2023-07-04 | [facility] | SEE COMMENT | (missing) | (missing) | | (unavailable | 08:27:07 | [facility] | | | | + + + + + + + + + | Result panel 348 | + + + + + +-------+---------+ + | | 2023-07-04 | [facility] | 120 | mg/dL | (missing) | | (unavailable | 08:27:07 | [facility] | | | | + + + +-------+---------+ + + + | Result panel 349 | + + + + + +------+---------+ + | | 2023-07-04 | [facility] | 10 | mg/dL | (missing) | | (unavailable | 08:27:07 | [facility] | | | | + + + +------+---------+ + + + | Result panel 350 | + + + + + +--------+---------+ + | | 2023-07-04 | [facility] | 0.70 | mg/dL | (missing) | | (unavailable | 08:27:07 | [facility] | | | | + + + +--------+---------+ + + + | Result panel 351 | + + + + + +-------+ + + | | 2023-07-04 | [facility] | 126 | (missing) | (missing) | | (unavailable | 08:27:07 | [facility] | | | | + + + +-------+ + + + + | Result panel 352 | + + + + + +---------+ + + | | 2023-07-04 | [facility] | 14.28 | (missing) | (missing) | | (unavailable | 08:27:07 | [facility] | | | | + + + +---------+ + + + + | Result panel 353 [...] 354 | + + + + + +-------+ [...] 356 | + + + + + +------+ + + | | 2023-07-04 | [facility] | 26 | (missing) | (missing) | | (unavailable | 08::07 | [facility] | | | | + + + +------+ + + + + | Result panel 357 | + + + + + +--------+ + + | | 2023-07-04 | [facility] | 14.0 | (missing) | (missing) | | (unavailable | 08::07 | [facility] | | | | + + + +--------+ + + + + | Result panel 358 | + + + + + +-------+---------+ + | | 2023-07-04 | [facility] | 9.3 | mg/dL | (missing) | | (unavailable | :07 | [facility] | | | | + + + +-------+---------+ + + + | Result panel 359 | + + + + + +-------+ + + | | 2023-07-04 | [facility] | 8.2 | (missing) | (missing) | | (unavailable | 08:07 | [facility] | | | | + + + +-------+ + + + + | Result panel 360 | + + + + + +-------+ + + | | 2023-07-04 | [facility] | 4.6 | (missing) | (missing) | | (unavailable | 08:27:07 | [facility] | | | | + + + +-------+ + + + + | Result panel 361 [...] 362 | + + + + + +--------+ [...] 364 | + + + + + +------+ + + | | 2023-07-04 | [facility] | 16 | (missing) | (missing) | | (unavailable | 08:27:07 | [facility] | | | | + + + +------+ + + + + | Result panel 365 | + + + + + +------+ [...] 368 | + + + + + + [...] 370 | + + + + + +-----+ + + | | 2023-07-04 | [facility] | 4 | (missing) | (missing) | | (unavailable | 08:27:07 | [facility] | | | | + + + +-----+ + + + + | Result panel 371 | + + + + + + + + + | | 2023-07-04 | [facility] | SEE COMMENT | (missing) | (missing) | | (unavailable | 08:27:07 | [facility] | | | | + + + + + + + + + | Result panel 372 | + + + + + +------+ + + | | 2023-07-04 | [facility] | 84 | (missing) | (missing) | | (unavailable | 08:27:07 | [facility] | | | | + + + +------+ + + + + | Result panel 373 | + + + + + +------+ + + | | 2023-07-04 | [facility] | 12 | (missing) | (missing) | | (unavailable | 08:27:07 | [facility] | | | | + + + +------+ + + + + | Result panel 374 | + + + + + +-----+ [...] 376 | + + + + + +---------+ [...] 378 | + + + + + +-------+ + + | | 2023-07-04 | [facility] | 5.5 | (missing) | (missing) | | (unavailable | 11:16:07 | [facility] | | | | + + + +-------+ + + + + | Result panel 379 | + + + + + + [...] 382 | + + + + + + + + + | | 2023-07-04 | [facility] | NEGATIVE | (missing) | (missing) | | (unavailable | 11:16:07 | [facility] | | | | + + + + + + + + + | Result panel 383 | + + + + + + + + + | | 2023-07-04 | [facility] | YELLOW | (missing) | (missing) | | (unavailable | 11:16:07 | [facility] | | | | + + + + + + + + + | Result panel 384 | + + + + + + + + + | | 2023-07-04 | [facility] | YELLOW | (missing) | (missing) | | (unavailable | 11:16:07 | [facility] | | | | + + + + + + + + + | Result panel 385 | + + + + + +---------+ + + | | 2023-07-04 | [facility] | CLEAR | (missing) | (missing) | | (unavailable | 11:16:07 | [facility] | | | | + + + +---------+ + + + + | Result panel 386 | + + + + + +---------+ + + | | 2023-07-04 | [facility] | CLEAR | (missing) | (missing) | | (unavailable | 11:16:07 | [facility] | | | | + + + +---------+ + + + + | Result panel 387 | + + + + + + + + + | | 2023-07-04 | [facility] | NEGATIVE | (missing) | (missing) | | (unavailable | 11:16:07 | [facility] | | | | + + + + + + + + + | Result panel 388 | + + + + + + + + + | | 2023-07-04 | [facility] | NEGATIVE | (missing) | (missing) | | (unavailable | 11:16:07 | [facility] | | | | + + + + + + + + + | Result panel 389 | + + + + + +---------+ + + | | 2023-07-04 | [facility] | SMALL | (missing) | (missing) | | (unavailable | 11:16:07 | [facility] | | | | + + + +---------+ + + + + | Result panel 390 | + + + + + +---------+ + + | | 2023-07-04 | [facility] | 1.010 | (missing) | (missing) | | (unavailable | 11:16:07 | [facility] | | | | + + + +---------+ + + + + | Result panel 391 | + + + + + + + + + | | 2023-07-04 | [facility] | NEGATIVE | (missing) | (missing) | | (unavailable | 11:16:07 | [facility] | | | | + + + + + + + + + | Result panel 392 | + + + + + +-------+ + + | | 2023-07-04 | [facility] | 5.5 | (missing) | (missing) | | (unavailable | 11:16:07 | [facility] | | | | + + + +-------+ + + + + | Result panel 393 | + + + + + + + + + | | 2023-07-04 | [facility] | NEGATIVE | (missing) | (missing) | | (unavailable | 11:16:07 | [facility] | | | | + + + + + + + + + | Result panel 394 | + + + + + + + + + | | 2023-07-04 | [facility] | NORMAL | (missing) | (missing) | | (unavailable | 11:16:07 | [facility] | | | | + + + + + + + + + | Result panel 395 | + + + + + + + + + | | 2023-07-04 | [facility] | NEGATIVE | (missing) | (missing) | | (unavailable | 11:16:07 | [facility] | | | | + + + + + + + + + | Result panel 396 | + + + + + + + + + | | 2023-07-04 | [facility] | NEGATIVE | (missing) | (missing) | | (unavailable | 11:16:07 | [facility] | | | | + + + + + + + + + | Result panel 397 | + + + + + + + + + | | 2023-07-04 | [facility] | NEGATIVE | (missing) | (missing) | | (unavailable | 11:16:07 | [facility] | | | | + + + + + + + + + | Result panel 398 | + + + + + + + + + | | 2023-07-04 | [facility] | NEGATIVE | (missing) | (missing) | | (unavailable | 11:16:07 | [facility] | | | | + + + + + + + + + | Result panel 399 | + + + + + +---------+ + + | | 2023-07-04 | [facility] | SMALL | (missing) | (missing) | | (unavailable | 11:16:07 | [facility] | | | | + + + +---------+ + + + + | Result panel 400 [...] 401 | + + + + + +------+ + + | | 2023-07-10 | [facility] | 19 | (missing) | (missing) | | (unavailable | 07:20:07 | [facility] | | | | + + + +------+ + + + + | Result panel 402 | + + + + + +------+ + + | | 2023-07-10 | [facility] | 25 | (missing) | (missing) | | (unavailable | 07:20:07 | [facility] | | | | + + + +------+ + + + + | Result panel 403 | + + + + + +------+ + + | | 2023-07-10 | [facility] | 57 | (missing) | (missing) | | (unavailable | 07:20:07 | [facility] | | | | + + + +------+ + + + + | Result panel 404 | + + + + + +------+ + + | | 2023-07-10 | [facility] | 73 | (missing) | (missing) | | (unavailable | 07:20:07 | [facility] | | | | + + + +------+ + + + + | Result panel 405 | + + + + + + + + + | | 2023-07-10 | [facility] | NEGATIVE | (missing) | (missing) | | (unavailable | 07:20:07 | [facility] | | | | + + + + + + + + + | Result panel 406 | + + + + + + + + + | | 2023-07-10 | [facility] | NEGATIVE | (missing) | (missing) | | (unavailable | 07:20:07 | [facility] | | | | + + + + + + + + + | Result panel 407 | + + + + + +-------+ + + | | 2023-07-10 | [facility] | 9.9 | (missing) | (missing) | | (unavailable | 07:20:07 | [facility] | | | | + + + +-------+ + + + + | Result panel 408 | + + + + + +--------+ + + | | 2023-07-10 | [facility] | 4.92 | (missing) | (missing) | | (unavailable | 07:20:07 | [facility] | | | | + + + +--------+ + + + + | Result panel 409 | + + + + + +--------+ + + | | 2023-07-10 | [facility] | 14.2 | (missing) | (missing) | | (unavailable | 07:20:07 | [facility] | | | | + + + +--------+ + + + + | Result panel 410 | + + + + + +--------+ [...] 412 | + + + + + +--------+ + + | | 2023-07-10 | [facility] | 28.8 | (missing) | (missing) | | (unavailable | 07:20:07 | [facility] | | | | + + + +--------+ + + + + | Result panel 413 | + + + + + +--------+ + + | | 2023-07-10 | [facility] | 33.4 | (missing) | (missing) | | (unavailable | 07:20:07 | [facility] | | | | + + + +--------+ + + + + | Result panel 414 | + + + + + +--------+ + + | | 2023-07-10 | [facility] | 12.9 | (missing) | (missing) | | (unavailable | 07:20:07 | [facility] | | | | + + + +--------+ + + + + | Result panel 415 | + + + + + +-------+ + + | | 2023-07-10 | [facility] | 506 | (missing) | (missing) | | (unavailable | 07:20:07 | [facility] | | | | + + + +-------+ + + + + | Result panel 416 | + + + + + +--------+ + + | | 2023-07-10 | [facility] | 76.6 | (missing) | (missing) | | (unavailable | 07:20:07 | [facility] | | | | + + + +--------+ + + + + | Result panel 417 | + + + + + +--------+ + + | | 2023-07-10 | [facility] | 15.3 | (missing) | (missing) | | (unavailable | 07:20:07 | [facility] | | | | + + + +--------+ + + + + | Result panel 418 | + + + + + +-------+ + + | | 2023-07-10 | [facility] | 6.3 | (missing) | (missing) | | (unavailable | 07:20:07 | [facility] | | | | + + + +-------+ + + + + | Result panel 419 | + + + + + +-------+ + + | | 2023-07-10 | [facility] | 1.1 | (missing) | (missing) | | (unavailable | 07:20:07 | [facility] | | | | + + + +-------+ + + + + | Result panel 420 | + + + + + +-------+ + + | | 2023-07-10 | [facility] | 0.7 | (missing) | (missing) | | (unavailable | 07:20:07 | [facility] | | | | + + + +-------+ + + + + | Result panel 421 | + + + + + +-------+---------+ + | | 2023-07-10 | [facility] | 114 | mg/dL | (missing) | | (unavailable | 07:20:07 | [facility] | | | | + + + +-------+---------+ + + + | Result panel 422 | + + + + + +-----+---------+ + | | 2023-07-10 | [facility] | 8 | mg/dL | (missing) | | (unavailable | 07:20:07 | [facility] | | | | + + + +-----+---------+ + + + | Result panel 423 | + + + + + +--------+---------+ + | | 2023-07-10 | [facility] | 0.68 | mg/dL | (missing) | | (unavailable | 07:20:07 | [facility] | | | | + + + +--------+---------+ + + + | Result panel 424 | + + + + + +-------+ + + | | 2023-07-10 | [facility] | 127 | (missing) | (missing) | | (unavailable | 07:20:07 | [facility] | | | | + + + +-------+ + + + + | Result panel 425 | + + + + + +---------+ + + | | 2023-07-10 | [facility] | 11.76 | (missing) | (missing) | | (unavailable | 07:20:07 | [facility] | | | | + + + +---------+ + + + + | Result panel 426 | + + + + + +-------+ + + | | 2023-07-10 | [facility] | 139 | (missing) | (missing) | | (unavailable | 07:20:07 | [facility] | | | | + + + +-------+ + + + + | Result panel 427 | + + + + + +-------+ + + | | 2023-07-10 | [facility] | 3.5 | (missing) | (missing) | | (unavailable | 07:20:07 | [facility] | | | | + + + +-------+ + + + + | Result panel 428 | + + + + + +-------+ + + | | 2023-07-10 | [facility] | 102 | (missing) | (missing) | | (unavailable | 07:20:07 | [facility] | | | | + + + +-------+ + + + + | Result panel 429 | + + + + + +------+ + + | | 2023-07-10 | [facility] | 22 | (missing) | (missing) | | (unavailable | 07:20:07 | [facility] | | | | + + + +------+ + + + + | Result panel 430 | + + + + + +--------+ + + | | 2023-07-10 | [facility] | 18.5 | (missing) | (missing) | | (unavailable | 07:20:07 | [facility] | | | | + + + +--------+ + + + + | Result panel 431 | + + + + + +-------+---------+ + | | 2023-07-10 | [facility] | 9.7 | mg/dL | (missing) | | (unavailable | 07:20:07 | [facility] | | | | + + + +-------+---------+ + + + | Result panel 432 | + + + + + +-------+ + + | | 2023-07-10 | [facility] | 8.4 | (missing) | (missing) | | (unavailable | 07:20:07 | [facility] | | | | + + + +-------+ + + + + | Result panel 433 | + + + + + +-------+ + + | | 2023-07-10 | [facility] | 4.7 | (missing) | (missing) | | (unavailable | 07:20:07 | [facility] | | | | + + + +-------+ + + + + | Result panel 434 | + + + + + +-------+ + + | | 2023-07-10 | [facility] | 3.7 | (missing) | (missing) | | (unavailable | 07:20:07 | [facility] | | | | + + + +-------+ + + + + | Result panel 435 | + + + + + +--------+ + + | | 2023-07-10 | [facility] | 1.27 | (missing) | (missing) | | (unavailable | 07:20:07 | [facility] | | | | + + + +--------+ + + + + | Result panel 436 | + + + + + +-------+ + + | | 2023-07-15 | [facility] | 8.9 | (missing) | (missing) | | (unavailable | 04:09:07 | [facility] | | | | + + + +-------+ + + + + | Result panel 437 | + + + + + +--------+ + + | | 2023-07-15 | [facility] | 4.46 | (missing) | (missing) | | (unavailable | 04:09:07 | [facility] | | | | + + + +--------+ + + + + | Result panel 438 | + + + + + +--------+ + + | | 2023-07-15 | [facility] | 13.1 | (missing) | (missing) | | (unavailable | 04:09:07 | [facility] | | | | + + + +--------+ + + + + | Result panel 439 | + + + + + +--------+ + + | | 2023-07-15 | [facility] | 38.4 | (missing) | (missing) | | (unavailable | 04::07 | [facility] | | | | + + + +--------+ + + + + | Result panel 440 | + + + + + +--------+ + + | | 2023-07-15 | [facility] | 86.1 | (missing) | (missing) | | (unavailable | 04:09:07 | [facility] | | | | + + + +--------+ + + + + | Result panel 441 | + + + + + +--------+ + + | | 2023-07-15 | [facility] | 29.4 | (missing) | (missing) | | (unavailable | 04:09:07 | [facility] | | | | + + + +--------+ + + + + | Result panel 442 | + + + + + +--------+ + + | | 2023-07-15 | [facility] | 34.2 | (missing) | (missing) | | (unavailable | 04:09:07 | [facility] | | | | + + + +--------+ + + + + | Result panel 443 | + + + + + +--------+ + + | | 2023-07-15 | [facility] | 12.9 | (missing) | (missing) | | (unavailable | 04:09:07 | [facility] | | | | + + + +--------+ + + + + | Result panel 444 | + + + + + +-------+ + + | | 2023-07-15 | [facility] | 430 | (missing) | (missing) | | (unavailable | 04:09:07 | [facility] | | | | + + + +-------+ + + + + | Result panel 445 | + + + + + +--------+ + + | | 2023-07-15 | [facility] | 48.8 | (missing) | (missing) | | (unavailable | 04:09:07 | [facility] | | | | + + + +--------+ + + + + | Result panel 446 | + + + + + +--------+ + + | | 2023-07-15 | [facility] | 30.9 | (missing) | (missing) | | (unavailable | 04:09:07 | [facility] | | | | + + + +--------+ + + + + | Result panel 447 | + + + + + +-------+ + + | | 2023-07-15 | [facility] | 8.9 | (missing) | (missing) | | (unavailable | 04::07 | [facility] | | | | + + + +-------+ + + + + | Result panel 448 | + + + + + +--------+ + + | | 2023-07-15 | [facility] | 10.9 | (missing) | (missing) | | (unavailable | 04:09:07 | [facility] | | | | + + + +--------+ + + + + | Result panel 449 | + + + + + +-------+ + + | | 2023-07-15 | [facility] | 0.5 | (missing) | (missing) | | (unavailable | 04:09:07 | [facility] | | | | + + + +-------+ + + + + | Result panel 450 | + + + + + +-------+---------+ + | | 2023-07-15 | [facility] | 103 | mg/dL | (missing) | | (unavailable | 04:09:07 | [facility] | | | | + + + +-------+---------+ + + + | Result panel 451 | + + + + + +------+---------+ + | | 2023-07-15 | [facility] | 10 | mg/dL | (missing) | | (unavailable | 04:09:07 | [facility] | | | | + + + +------+---------+ + + + | Result panel 452 | + + + + + +--------+---------+ + | | 2023-07-15 | [facility] | 0.64 | mg/dL | (missing) | | (unavailable | 04:09:07 | [facility] | | | | + + + +--------+---------+ + + + | Result panel 453 | + + + + + +-------+ + + | | 2023-07-15 | [facility] | 129 | (missing) | (missing) | | (unavailable | 04:09:07 | [facility] | | | | + + + +-------+ + + + + | Result panel 454 | + + + + + +---------+ + + | | 2023-07-15 | [facility] | 15.62 | (missing) | (missing) | | (unavailable | 04:09:07 | [facility] | | | | + + + +---------+ + + + + | Result panel 455 | + + + + + +-------+ + + | | 2023-07-15 | [facility] | 139 | (missing) | (missing) | | (unavailable | 04:09:07 | [facility] | | | | + + + +-------+ + + + + | Result panel 456 | + + + + + +-------+ + + | | 2023-07-15 | [facility] | 3.6 | (missing) | (missing) | | (unavailable | 04:09:07 | [facility] | | | | + + + +-------+ + + + + | Result panel 457 | + + + + + +-------+ + + | | 2023-07-15 | [facility] | 103 | (missing) | (missing) | | (unavailable | 04:09:07 | [facility] | | | | + + + +-------+ + + + + | Result panel 458 | + + + + + +------+ + + | | 2023-07-15 | [facility] | 22 | (missing) | (missing) | | (unavailable | 04:09:07 | [facility] | | | | + + + +------+ + + + + | Result panel 459 | + + + + + +--------+ + + | | 2023-07-15 | [facility] | 17.6 | (missing) | (missing) | | (unavailable | 04:09:07 | [facility] | | | | + + + +--------+ + + + + | Result panel 460 | + + + + + +-------+---------+ + | | 2023-07-15 | [facility] | 9.4 | mg/dL | (missing) | | (unavailable | 04:09:07 | [facility] | | | | + + + +-------+---------+ + + + | Result panel 461 | + + + + + +-------+ + + | | 2023-07-15 | [facility] | 7.7 | (missing) | (missing) | | (unavailable | 04:09:07 | [facility] | | | | + + + +-------+ + + + + | Result panel 462 | + + + + + +-------+ + + | | 2023-07-15 | [facility] | 4.4 | (missing) | (missing) | | (unavailable | 04:09:07 | [facility] | | | | + + + +-------+ + + + + | Result panel 463 | + + + + + +-------+ + + | | 2023-07-15 | [facility] | 3.3 | (missing) | (missing) | | (unavailable | 04:09:07 | [facility] | | | | + + + +-------+ + + + + | Result panel 464 | + + + + + +--------+ + + | | 2023-07-15 | [facility] | 1.33 | (missing) | (missing) | | (unavailable | 04:09:07 | [facility] | | | | + + + +--------+ + + + + | Result panel 465 | + + + + + +-------+ + + | | 2023-07-15 | [facility] | 0.6 | (missing) | (missing) | | (unavailable | 04:09:07 | [facility] | | | | + + + +-------+ + + + + | Result panel 466 | + + + + + +------+ + + | | 2023-07-15 | [facility] | 14 | (missing) | (missing) | | (unavailable | 04:09:07 | [facility] | | | | + + + +------+ + + + + | Result panel 467 | + + + + + +------+ + + | | 2023-07-15 | [facility] | 26 | (missing) | (missing) | | (unavailable | 04:09:07 | [facility] | | | | + + + +------+ + + + + | Result panel 468 | + + + + + +------+ + + | | 2023-07-15 | [facility] | 57 | (missing) | (missing) | | (unavailable | 04::07 | [facility] | | | | + + + +------+ + + + + | Result panel 469 | + + + + + +------+ + + | | 2023-07-15 | [facility] | 87 | (missing) | (missing) | | (unavailable | 04::07 | [facility] | | | | + + + +------+ + + + + | Result panel 470 | + + + + + +--------+ + + | | 2023-07-15 | [facility] | <4.0 | (missing) | (missing) | | (unavailable | 04:09:07 | [facility] | | | | + + + +--------+ + + Social History + + + + | date | description | facility | + + + + | 2022-06-09 00:00 | [facility] | + + + + Vital Signs [...] 125 | lb | + + + +---------+ | 2023-07-15 00:00 | BMI | 24.4 | kg/m2 | + + + +---------+ | 2023-07-15 00:00 | BP_diastolic | 83 | mmHg | + + + +---------+ | 2023-07-15 00:00 | BP_systolic | 125 | mmHg | + + + +---------+ | 2023-07-15 00:00 | heart_rate | 78 | /min | + + + +---------+ | 2023-07-15 00:00 | height_metric | 152.4 | cm | + + + +---------+ | 2023-07-15 00:00 | height_standard | 60 | in | + + + +---------+ | 2023-07-15 00:00 | o2_saturation | 99 | % | + + + +---------+ | 2023-07-15 00:00 | respiration_rate | 18 | /min | + + + +---------+ | 2023-07-15 00:00 | temperature_metric | 36.56 | C | | | | | | + + + +---------+ | 2023-07-15 00:00 | | 97.8 | F | | | temperature_standar | | | | | d | | | + + + +---------+ | 2023-07-15 00:00 | weight_metric | 56.7 | kg | + + + +---------+ | 2023-07-15 00:00 | weight_standard | 125 | lb | + + + +---------+"
--- OUTSIDE RECORDS SUMMARY | ~2023-07-17 | XMS | Continuity of Care Document ---
Demographics + + + | Address | [address] | | | [place] [address] | + + + | Preferred Language | Unknown | + + + | Marital Status | Never | + + + | Hinduism Affiliation | Unknown | + + + | Race | White | + + + | Ethnic Group | Not or | + + + Author + + + | Author | [place] | + + + | Organization | [facility] [place] | + + + | Address | [address] | | | [place] [address] | + + + | Phone | | + + + Care Team Providers + + + + | Care Field Marketing Specialist Name | Role | Phone | + [...] | 2018-06-26 00:00 | Tdap | [facility] | + + + + | 2022-06-09 00:00 | No vaccine administered | [facility] | + + + + Medications + + + + | date | description | facility | + + + + | 2023-07-10 00:00 | ONDANSETRON | [facility] | + + + + | 2022-06-09 00:00 | OXYCODONE | [facility] | | | HCL/ACETAMINOPHEN | | + + + + | 2022-06-09 00:00 | acetaminophen 325 MG / | [facility] | | | oxycodone hydrochloride 7.5 | | | | MG Oral T | | + + + + | 2022-06-09 00:00 | IBUPROFEN | [facility] | + + + + | 2022-06-09 00:00 | ibuprofen 600 MG Oral | [facility] | | | Tablet | | + + + + | 2022-06-06 00:00 | OMEPRAZOLE | [facility] | + + + + | 2022-06-06 00:00 | omeprazole 20 MG Delayed | [facility] | | | Release Oral Capsule | | + + + + | 2023-07-04 00:00 | ONDANSETRON HCL | [facility] | + + + + | 2023-07-10 00:00 | ONDANSETRON HCL | [facility] | + + + + | 2023-07-15 00:00 | ONDANSETRON HCL | [facility] | + + + + | 2022-06-09 00:00 | ACETAMINOPHEN | [facility] | + + + + | 2022-06-09 00:00 | acetaminophen 500 MG Oral | [facility] | | | Tablet | | + + + + | 2023-07-04 00:00 | FLUOXETINE HCL | [facility] | + + + + | 2023-07-10 00:00 | FLUOXETINE HCL | [facility] | + + + + | 2023-07-15 00:00 | FLUOXETINE HCL | [facility] | + + + + | 2023-07-04 00:00 | SUCRALFATE | [facility] | + + + + | 2023-07-15 00:00 | SUCRALFATE | [facility] | + + + + | 2015-01-28 00:00 | AZITHROMYCIN | [facility] | + + + + | 2015-01-28 00:00 | azithromycin 250 MG Oral | [facility] | | | Tablet [Zithromax] | | + + + + | 2022-05-27 00:00 | ONDANSETRON | [facility] | + + + + | 2023-01-25 00:00 | ONDANSETRON | [facility] | + + + + | 2022-05-27 00:00 | ondansetron 8 MG | [facility] | | | Disintegrating Oral Tablet | | + + + + | 2022-06-06 00:00 | DICYCLOMINE HCL | [facility] | + + + + | 2022-06-06 00:00 | dicyclomine hydrochloride | [facility] | | | 20 MG Oral Tablet | | + + + + Problems + + + + | date | description | facility | + + + + | 2015-01-28 00:00 | Bronchitis | [facility] | + + + + | 2018-06-26 00:00 | Contusion of face | [facility] | + + + + | 2018-06-26 00:00 | Contusion of left knee | [facility] | + + + + | 2022-05-27 00:00 | Acute gastritis | [facility] | + + + + | 2022-06-07 00:00 | Dehydration | [facility] | + + + + | 2022-06-07 00:00 | Abdominal pain | [facility] | + + + + | 2022-11-09 00:00 | Vomiting | [facility] | + + + + | [...] + + | 2023-01-25 08:23 | OTHER [facility] (CURRENT) | [facility] | | | DRUG [facility]AP[facility] | | + + + + | 2023-07-04 07:41 | GASTRITIS, UNSPECIFIED, | [facility] | | | WITHOUT BLEEDING | | + + + + | 2023-07-04 07:41 | NAUSEA WITH VOMITING, | [facility] | | | UNSPECIFIED | | + + + + | 2023-07-04 07:41 | 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) | [facility] | | | DRUG THERAPY | | + + + + | 2023-07-07 00:00 | Gastritis | [facility] | + + + + | 2023-07-10 07:04 | GASTRITIS, UNSPECIFIED, | [facility] | | | WITHOUT BLEEDING | | + + + + | 2023-07-10 07:04 | EPIGASTRIC PAIN | [facility] | + + + + | 2023-07-10 07:04 | 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) | [facility] | | | DRUG THERAPY | | + + + + | 2023-07-15 00:00 | Epigastric pain | [facility] | + + + + | 2023-07-15 03:49 | UPPER ABDOMINAL PAIN, | [facility] | | | UNSPECIFIED | | + + + + | 2023-07-15 03:49 | EPIGASTRIC PAIN | [facility] | + + + + | 2023-07-15 03:49 | OTHER [facility] (CURRENT) | [facility] | | | DRUG TH[facility]APY | | + + + + Procedures + + + + | date | description | facility | + + + + | 2022-06-08 00:00 | Laparoscopic | [facility] | | | cholecystectomy with | | | | cholangiography | | + + + + | 2022-06-08 00:00 | Laparoscopic | [facility] | | | cholecystectomy with | [...] (missing) | | plasma | 05:15 | [facility] | | | | | sodium | [...] (missing) | | (unavailable | 11:16:07 | [facility] | | | | | [...] (missing) | | (unavailable | 04:09:07 | [facility] | | | | | [...] (missing) | | (unavailable | 04::07 | [facility] | | | | | [...] 2022-06-09 00:00 | Never smoker | [facility] | + + + + Vital [...]
--- OUTSIDE RECORDS SUMMARY | 2023-07-17 05:44 | XMS ---
PreManage Notification: KATERIN MARINA Security Shanker Out Events No recent Security Events currently on file CRITERIA MET - [facility] - 2 Visits in 30 Days CARE PROVIDERS LION MCKEE Nurse Practitioner: Family Current PHONE: [phone] ZION BLOCK [facility] Current PHONE: [phone] Juan has no Care Guidelines for this patient. EGisela VISIT COUNT (12 MO.) [address] [facility] [facility] TOTAL 8 NOTE: Visits indicate total known visits. ED/UCC VISIT TRACKING (12 MO.) 07/17/2023 05:35 [facility] [place] TYPE: Emergency COMPLAINT: - ABD PAIN 07/15/2023 03:[address] 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 [place] TYPE: Emergency COMPLAINT: - ABD PAIN DIAGNOSES: - Epigastric pain - Gastritis, unspecified, without bleeding - Other snf (current) drug therapy 07/04/2023 07:[address] 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 [place] TYPE: Emergency COMPLAINT: - VOMITING DIAGNOSES: - Acute gastritis without bleeding - Diarrhea, unspecified - Other snf (current) drug therapy 11/09/2022 11:[address] [facility] [place] TYPE: Emergency COMPLAINT: - VOMITING DIAGNOSES: - Acquired absence of other specified parts of digestive tract - Nausea with vomiting, unspecified 10/10/2022 16:59 [facility] [place] TYPE: Emergency COMPLAINT: - Unspecified abdominal pain - Nausea with vomiting, unspecified DIAGNOSES: 1. Nausea with vomiting, unspecified 09/25/2022 08:52 [facility] [place] TYPE: Emergency DIAGNOSES: - Nausea with vomiting, unspecified - Abdominal Pain - Emesis INPATIENT VISIT TRACKING (12 MO.) No inpatient visits to display in this time frame [email or web address]
[2023-07-17] MEDS ORDERED: VITAMIN D21250 MCG PO (05:48)
[2023-07-17] MEDS ORDERED: OMEPRAZOLE20 MG PO (05:48)
[2023-07-17] MEDS ORDERED: VALACYCLOVIR1000 MG PO (05:48)
[2023-07-17] MEDS ORDERED: PROMETHAZINE HC25 M1 PO (06:58)
[2023-07-17] MEDS ORDERED: PROMETHAZINE HC25 MG PR (06:58)
[2023-07-17 07:05] VITALS: BP 121/73
[2023-07-17] MEDS ORDERED: COMPAZINE25 MG PR (16:25)
== END 2023-07-17 07:05 | disposition home or self-care (01) ==
LOC: ED 05:35
DX: R11.15 Cyclical vomiting syndrome unrelated to migraine (principal); Z79.899 Other long term (current) drug therapy
CPT/HCPCS: 96361; 96374; 96375; 99283-25; J1200; J1790; J2405; J3490; J7121

== ENCOUNTER 2023-07-17 11:40 | Emergency (ER) | payer OTHER, BC ==
[~2023-07-17] VITALS: Ht 152.4 cm; Wt 58.6 kg
--- OUTSIDE RECORDS SUMMARY | ~2023-07-17 | XMS | Continuity of Care Document ---
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 Name | Role | Phone | + [...] | 2018-06-26 00:00 | Tdap | [facility] | + + + + | 2022-06-09 00:00 | No vaccine administered | [facility] | + + + + Medications + + + + | date | description | facility | + + + + | 2023-07-10 00:00 | ONDANSETRON | [facility] | + + + + | 2022-06-09 00:00 | OXYCODONE | [facility] | | | HCL/ACETAMINOPHEN | | + + + + | 2022-06-09 00:00 | acetaminophen 325 MG / | [facility] | | | oxycodone hydrochloride 7.5 | | | | MG Oral T | | + + + + | 2023-07-17 00:00 | Ergocalciferol (Vitamin | [facility] | | | D2) | | + + + + | 2022-06-09 00:00 | IBUPROFEN | [facility] | + + + + | 2022-06-09 00:00 | ibuprofen 600 MG Oral | [facility] | | | Tablet | | + + + + | 2022-06-06 00:00 | OMEPRAZOLE | [facility] | + + + + | 2023-07-17 00:00 | OMEPRAZOLE | [facility] | + + + + | 2022-06-06 00:00 | omeprazole 20 MG Delayed | [facility] | | | Release Oral Capsule | | + + + + | 2023-07-04 00:00 | ONDANSETRON HCL | [facility] | + + + + | 2023-07-10 00:00 | ONDANSETRON HCL | [facility] | + + + + | 2023-07-15 00:00 | ONDANSETRON HCL | [facility] | + + + + | 2022-06-09 00:00 | ACETAMINOPHEN | [facility] | + + + + | 2022-06-09 00:00 | acetaminophen 500 MG Oral | [facility] | | | Tablet | | + + + + | 2023-07-04 00:00 | FLUOXETINE HCL | [facility] | + + + + | 2023-07-10 00:00 | FLUOXETINE HCL | [facility] | + + + + | 2023-07-15 00:00 | FLUOXETINE HCL | [facility] | + + + + | 2023-07-17 00:00 | FLUOXETINE HCL | [facility] | + + + + | 2023-07-04 00:00 | SUCRALFATE | [facility] | + + + + | 2023-07-15 00:00 | SUCRALFATE | [facility] | + + + + | 2015-01-28 00:00 | AZITHROMYCIN | [facility] | + + + + | 2015-01-28 00:00 | azithromycin 250 MG Oral | [facility] | | | Tablet [Zithromax] | | + + + + | 2022-05-27 00:00 | ONDANSETRON | [facility] | + + + + | 2023-01-25 00:00 | ONDANSETRON | [facility] | + + + + | 2022-05-27 00:00 | ondansetron 8 MG | [facility] | | | Disintegrating Oral Tablet | | + + + + | 2023-07-17 00:00 | VALACYCLOVIR HCL | [facility] | + + + + | 2022-06-06 00:00 | DICYCLOMINE HCL | [facility] | + + + + | 2022-06-06 00:00 | dicyclomine hydrochloride | [facility] | | | 20 MG Oral Tablet | | + + + + | 2023-07-17 00:00 | PROMETHAZINE HCL | [facility] | + + + + | 2023-07-17 00:00 | PROMETHAZINE HCL | [facility] | + + + + Problems + + + + | date | description | facility | + + + + | 2015-01-28 00:00 | Bronchitis | [facility] | + + + + | 2018-06-26 00:00 | Contusion of face | [facility] | + + + + | 2018-06-26 00:00 | Contusion of left knee | [facility] | + + + + | 2022-05-27 00:00 | Acute gastritis | [facility] | + + + + | 2022-06-07 00:00 | Dehydration | [facility] | + + + + | 2022-06-07 00:00 | Abdominal pain | [facility] | + + + + | 2022-11-09 00:00 | Vomiting | [facility] | + + + + | [...] + + | 2023-01-25 08:23 | OTHER ASSISTED (CURRENT) | [facility] | | [facility] | | + + + + | 2023-07-04 07:41 | GASTRITIS, UNSPECIFIED, | [facility] | | | WITHOUT BLEEDING | | + + + + | 2023-07-04 07:41 | NAUSEA WITH VOMITING, | [facility] | | | UNSPECIFIED | | + + + + | 2023-07-04 07:41 | OTHER ASSISTED (CURRENT) | [facility] | | [facility] | | + + + + | 2023-07-07 00:00 | Gastritis | [facility] | + + + + | 2023-07-10 07:04 | GASTRITIS, UNSPECIFIED, | [facility] | | | WITHOUT BLEEDING | | + + + + | 2023-07-10 07:04 | EPIGASTRIC PAIN | [facility] | + + + + | 2023-07-10 07:04 | OTHER ASSISTED (CURRENT) | [facility] | | | [facility] | | + + + + | 2023-07-15 00:00 | Epigastric pain | [facility] | + + + + | 2023-07-15 03:49 | UPPER ABDOMINAL PAIN, | [facility] | | | UNSPECIFIED | | + + + + | 2023-07-15 03:49 | EPIGASTRIC PAIN | [facility] | + + + + | 2023-07-15 03:49 | OTHER ASSISTED (CURRENT) | [facility] | | | [facility] | | + + + + | 2023-07-17 00:00 | Cyclic vomiting syndrome | [facility] | + + + + Procedures + + + + | date | description | facility | + + + + | 2022-06-08 00:00 | Laparoscopic | [facility] | | | cholecystectomy with | | | | cholangiography | | + + + + | 2022-06-08 00:00 | Laparoscopic | [facility] | | | cholecystectomy with | [...] (missing) | | (unavailable | 13:35 | [facility] | | | | | [...] 335 | + + + + + +------+ [...] 337 | + + + + + +-----+ + + | | 2023-07-04 | [facility] | 4 | (missing) | (missing) | | (unavailable | 08:27:07 | [facility] | | | | + + + +-----+ + + + + | Result panel 338 | + + + + + + [...] 347 | + + + + + +-------+ + + | | 2023-07-04 | [facility] | 417 | (missing) | (missing) | | (unavailable | 08:27:07 | [facility] | | | | + + + +-------+ + + + + | Result panel 348 | + + + + + +------+ + + | | 2023-07-04 | [facility] | 84 | (missing) | (missing) | | (unavailable | 08:27:07 | [facility] | | | | + + + +------+ + + + + | Result panel 349 | + + + + + +------+ + + | | 2023-07-04 | [facility] | 12 | (missing) | (missing) | | (unavailable | 08:27:07 | [facility] | | | | + + + +------+ + + + + | Result panel 350 | + + + + + +-----+ + + | | 2023-07-04 | [facility] | 4 | (missing) | (missing) | | (unavailable | 08:27:07 | [facility] | | | | + + + +-----+ + + + + | Result panel 351 | + + + + + + + + + | | 2023-07-04 | [facility] | SEE COMMENT | (missing) | (missing) | | (unavailable | 08:27:07 | [facility] | | | | + + + + + + + + + | Result panel 352 | + + + + + +-------+---------+ + | | 2023-07-04 | [facility] | 120 | mg/dL | (missing) | | (unavailable | 08:27:07 | [facility] | | | | + + + +-------+---------+ + + + | Result panel 353 | + + + + + +------+---------+ + | | 2023-07-04 | [facility] | 10 | mg/dL | (missing) | | (unavailable | 08::07 | [facility] | | | | + + + +------+---------+ + + + | Result panel 354 | + + + + + +--------+---------+ + | | 2023-07-04 | [facility] | 0.70 | mg/dL | (missing) | | (unavailable | :07 | [facility] | | | | + + + +--------+---------+ + + + | Result panel 355 [...] 356 | + + + + + +---------+ [...] 358 | + + + + + +-------+ [...] 360 | + + + + + +------+ + + | | 2023-07-04 | [facility] | 26 | (missing) | (missing) | | (unavailable | 08:27:07 | [facility] | | | | + + + +------+ + + + + | Result panel 361 | + + + + + +--------+ + + | | 2023-07-04 | [facility] | 14.0 | (missing) | (missing) | | (unavailable | 08:27:07 | [facility] | | | | + + + +--------+ + + + + | Result panel 362 | + + + + + +-------+---------+ + | | 2023-07-04 | [facility] | 9.3 | mg/dL | (missing) | | (unavailable | 08:27:07 | [facility] | | | | + + + +-------+---------+ + + + | Result panel 363 [...] 367 | + + + + + +-------+ [...] 370 | + + + + + +------+ + + | | 2023-07-04 | [facility] | 55 | (missing) | (missing) | | (unavailable | 08::07 | [facility] | | | | + + + +------+ + + + + | Result panel 371 | + + + + + +------+ [...] 375 | + + + + + +-----+ [...] 377 | + + + + + +------+ [...] 379 | + + + + + +-----+ [...] (missing) | (missing) | | (unavailable | :27:07 | [facility] | | | | | [...] 388 | + + + + + +-------+ [...] 392 | + + + + + + [...] 394 | + + + + + +---------+ [...] 397 | + + + + + +---------+ + + | | 2023-07-04 | [facility] | SMALL | (missing) | (missing) | | (unavailable | 11:16:07 | [facility] | | | | + + + +---------+ + + + + | Result panel 398 | + + + + + +---------+ [...] 404 | + + + + + + [...] 406 | + + + + + +---------+ + + | | 2023-07-04 | [facility] | CLEAR | (missing) | (missing) | | (unavailable | 11:16:07 | [facility] | | | | + + + +---------+ + + + + | Result panel 407 | + + + + + + + + + | | 2023-07-04 | [facility] | NEGATIVE | (missing) | (missing) | | (unavailable | 11:16:07 | [facility] | | | | + + + + + + + + + | Result panel 408 | + + + + + + + + + | | 2023-07-04 | [facility] | NEGATIVE | (missing) | (missing) | | (unavailable | 11:16:07 | [facility] | | | | + + + + + + + + + | Result panel 409 | + + + + + +---------+ + + | | 2023-07-04 | [facility] | SMALL | (missing) | (missing) | | (unavailable | 11:16:07 | [facility] | | | | + + + +---------+ + + + + | Result panel 410 | + + + + + +---------+ [...] 416 | + + + + + + [...] 419 | + + + + + +--------+ + + | | 2023-07-10 | [facility] | 4.92 | (missing) | (missing) | | (unavailable | 07:20:07 | [facility] | | | | + + + +--------+ + + + + | Result panel 420 | + + + + + +--------+ + + | | 2023-07-10 | [facility] | 14.2 | (missing) | (missing) | | (unavailable | 07:20:07 | [facility] | | | | + + + +--------+ + + + + | Result panel 421 | + + + + + +--------+ + + | | 2023-07-10 | [facility] | 42.5 | (missing) | (missing) | | (unavailable | 07:20:07 | [facility] | | | | + + + +--------+ + + + + | Result panel 422 | + + + + + +--------+ + + | | 2023-07-10 | [facility] | 86.3 | (missing) | (missing) | | (unavailable | 07:20:07 | [facility] | | | | + + + +--------+ + + + + | Result panel 423 | + + + + + +--------+ + + | | 2023-07-10 | [facility] | 28.8 | (missing) | (missing) | | (unavailable | 07:20:07 | [facility] | | | | + + + +--------+ + + + + | Result panel 424 | + + + + + +--------+ + + | | 2023-07-10 | [facility] | 33.4 | (missing) | (missing) | | (unavailable | 07:20:07 | [facility] | | | | + + + +--------+ + + + + | Result panel 425 | + + + + + +--------+ [...] 427 | + + + + + +--------+ + + | | 2023-07-10 | [facility] | 76.6 | (missing) | (missing) | | (unavailable | 07:20:07 | [facility] | | | | + + + +--------+ + + + + | Result panel 428 | + + + + + +--------+ + + | | 2023-07-10 | [facility] | 15.3 | (missing) | (missing) | | (unavailable | 07:20:07 | [facility] | | | | + + + +--------+ + + + + | Result panel 429 | + + + + + +-------+ + + | | 2023-07-10 | [facility] | 6.3 | (missing) | (missing) | | (unavailable | 07:20:07 | [facility] | | | | + + + +-------+ + + + + | Result panel 430 | + + + + + +-------+ + + | | 2023-07-10 | [facility] | 1.1 | (missing) | (missing) | | (unavailable | 07:20:07 | [facility] | | | | + + + +-------+ + + + + | Result panel 431 | + + + + + +-------+ + + | | 2023-07-10 | [facility] | 0.7 | (missing) | (missing) | | (unavailable | 07:20:07 | [facility] | | | | + + + +-------+ + + + + | Result panel 432 | + + + + + +-------+---------+ + | | 2023-07-10 | [facility] | 114 | mg/dL | (missing) | | (unavailable | 07:20:07 | [facility] | | | | + + + +-------+---------+ + + + | Result panel 433 | + + + + + +-----+---------+ + | | 2023-07-10 | [facility] | 8 | mg/dL | (missing) | | (unavailable | 07:20:07 | [facility] | | | | + + + +-----+---------+ + + + | Result panel 434 | + + + + + +--------+---------+ + | | 2023-07-10 | [facility] | 0.68 | mg/dL | (missing) | | (unavailable | 07:20:07 | [facility] | | | | + + + +--------+---------+ + + + | Result panel 435 | + + + + + +-------+ + + | | 2023-07-10 | [facility] | 127 | (missing) | (missing) | | (unavailable | 07:20:07 | [facility] | | | | + + + +-------+ + + + + | Result panel 436 | + + + + + +---------+ + + | | 2023-07-10 | [facility] | 11.76 | (missing) | (missing) | | (unavailable | 07:20:07 | [facility] | | | | + + + +---------+ + + + + | Result panel 437 | + + + + + +-------+ + + | | 2023-07-10 | [facility] | 139 | (missing) | (missing) | | (unavailable | 07:20:07 | [facility] | | | | + + + +-------+ + + + + | Result panel 438 | + + + + + +-------+ + + | | 2023-07-10 | [facility] | 3.5 | (missing) | (missing) | | (unavailable | 07:20:07 | [facility] | | | | + + + +-------+ + + + + | Result panel 439 | + + + + + +-------+ + + | | 2023-07-10 | [facility] | 102 | (missing) | (missing) | | (unavailable | 07:20:07 | [facility] | | | | + + + +-------+ + + + + | Result panel 440 | + + + + + +------+ [...] (missing) | | (unavailable | 07:20:07 | [facility] | | | | + + + +--------+ + + + + | Result panel 442 | + + + + + +-------+---------+ + | | 2023-07-10 | [facility] | 9.7 | mg/dL | (missing) | | (unavailable | 07:20:07 | [facility] | | | | + + + +-------+---------+ + + + | Result panel 443 | + + + + + +-------+ [...] 445 | + + + + + +-------+ [...] 448 | + + + + + +------+ + + | | 2023-07-10 | [facility] | 19 | (missing) | (missing) | | (unavailable | 07:20:07 | [facility] | | | | + + + +------+ + + + + | Result panel 449 | + + + + + +------+ + + | | 2023-07-10 | [facility] | 25 | (missing) | (missing) | | (unavailable | 07:20:07 | [facility] | | | | + + + +------+ + + + + | Result panel 450 | + + + + + +------+ + + | | 2023-07-10 | [facility] | 57 | (missing) | (missing) | | (unavailable | 07:20:07 | [facility] | | | | + + + +------+ + + + + | Result panel 451 | + + + + + +------+ + + | | 2023-07-10 | [facility] | 73 | (missing) | (missing) | | (unavailable | 07:20:07 | [facility] | | | | + + + +------+ + + + + | Result panel 452 | + + + + + + + + + | | 2023-07-10 | [facility] | NEGATIVE | (missing) | (missing) | | (unavailable | 07:20:07 | [facility] | | | | + + + + + + + + + | Result panel 453 | + + + + + + + + + | | 2023-07-10 | [facility] | NEGATIVE | (missing) | (missing) | | (unavailable | 07:20:07 | [facility] | | | | + + + + + + + + + | Result panel 454 | + + + + + +-------+ + + | | 2023-07-15 | [facility] | 430 | (missing) | (missing) | | (unavailable | 04:09:07 | [facility] | | | | + + + +-------+ + + + + | Result panel 455 | + + + + + +--------+ [...] 457 | + + + + + +------+ [...] 459 | + + + + + +------+ + + | | 2023-07-15 | [facility] | 57 | (missing) | (missing) | | (unavailable | 04:09:07 | [facility] | | | | + + + +------+ + + + + | Result panel 460 | + + + + + +------+ + + | | 2023-07-15 | [facility] | 87 | (missing) | (missing) | | (unavailable | 04:09:07 | [facility] | | | | + + + +------+ + + + + | Result panel 461 | + + + + + +--------+ + + | | 2023-07-15 | [facility] | <4.0 | (missing) | (missing) | | (unavailable | 04:09:07 | [facility] | | | | + + + +--------+ + + + + | Result panel 462 | + + + + + +--------+ + + | | 2023-07-15 | [facility] | 48.8 | (missing) | (missing) | | (unavailable | 04:09:07 | [facility] | | | | + + + +--------+ + + + + | Result panel 463 | + + + + + +--------+ + + | | 2023-07-15 | [facility] | 30.9 | (missing) | (missing) | | (unavailable | 04:09:07 | [facility] | | | | + + + +--------+ + + + + | Result panel 464 | + + + + + +-------+ + + | | 2023-07-15 | [facility] | 8.9 | (missing) | (missing) | | (unavailable | 04:09:07 | [facility] | | | | + + + +-------+ + + + + | Result panel 465 | + + + + + +--------+ + + | | 2023-07-15 | [facility] | 10.9 | (missing) | (missing) | | (unavailable | 04:09:07 | [facility] | | | | + + + +--------+ + + + + | Result panel 466 | + + + + + +-------+ + + | | 2023-07-15 | [facility] | 0.5 | (missing) | (missing) | | (unavailable | 04:09:07 | [facility] | | | | + + + +-------+ + + + + | Result panel 467 | + + + + + +-------+---------+ + | | 2023-07-15 | [facility] | 103 | mg/dL | (missing) | | (unavailable | 04::07 | [facility] | | | | + + + +-------+---------+ + + + | Result panel 468 | + + + + + +------+---------+ + | | 2023-07-15 | [facility] | 10 | mg/dL | (missing) | | (unavailable | 04:09:07 | [facility] | | | | + + + +------+---------+ + + + | Result panel 469 | + + + + + +--------+---------+ + | | 2023-07-15 | [facility] | 0.64 | mg/dL | (missing) | | (unavailable | 04::07 | [facility] | | | | + + + +--------+---------+ + + + | Result panel 470 | + + + + + +-------+ + + | | 2023-07-15 | [facility] | 129 | (missing) | (missing) | | (unavailable | 04:09:07 | [facility] | | | | + + + +-------+ + + + + | Result panel 471 | + + + + + +-------+ + + | | 2023-07-15 | [facility] | 8.9 | (missing) | (missing) | | (unavailable | 04:09:07 | [facility] | | | | + + + +-------+ + + + + | Result panel 472 | + + + + + +---------+ + + | | 2023-07-15 | [facility] | 15.62 | (missing) | (missing) | | (unavailable | 04:09:07 | [facility] | | | | + + + +---------+ + + + + | Result panel 473 | + + + + + +-------+ + + | | 2023-07-15 | [facility] | 139 | (missing) | (missing) | | (unavailable | 04::07 | [facility] | | | | + + + +-------+ + + + + | Result panel 474 | + + + + + +-------+ [...] 476 | + + + + + +------+ + + | | 2023-07-15 | [facility] | 22 | (missing) | (missing) | | (unavailable | 04:09:07 | [facility] | | | | + + + +------+ + + + + | Result panel 477 | + + + + + +--------+ [...] 479 | + + + + + +-------+ + + | | 2023-07-15 | [facility] | 7.7 | (missing) | (missing) | | (unavailable | 04:09:07 | [facility] | | | | + + + +-------+ + + + + | Result panel 480 [...] 481 | + + + + + +-------+ [...] 483 | + + + + + +--------+ + + | | 2023-07-15 | [facility] | 1.33 | (missing) | (missing) | | (unavailable | 04:09:07 | [facility] | | | | + + + +--------+ + + + + | Result panel 484 | + + + + + +-------+ + + | | 2023-07-15 | [facility] | 0.6 | (missing) | (missing) | | (unavailable | 04:09:07 | [facility] | | | | + + + +-------+ + + + + | Result panel 485 | + + + + + +------+ + + | | 2023-07-15 | [facility] | 14 | (missing) | (missing) | | (unavailable | 04:09:07 | [facility] | | | | + + + +------+ + + + + | Result panel 486 | + + + + + +------+ + + | | 2023-07-15 | [facility] | 26 | (missing) | (missing) | | (unavailable | 04:09:07 | [facility] | | | | + + + +------+ + + + + | Result panel 487 | + + + + + +------+ + + | | 2023-07-15 | [facility] | 57 | (missing) | (missing) | | (unavailable | 04:09:07 | [facility] | | | | + + + +------+ + + + + | Result panel 488 | + + + + + +------+ + + | | 2023-07-15 | [facility] | 87 | (missing) | (missing) | | (unavailable | 04:09:07 | [facility] | | | | + + + +------+ + + + + | Result panel 489 | + + + + + +--------+ [...] 492 | + + + + + +--------+ [...] 495 | + + + + + +--------+ + + | | 2023-07-15 | [facility] | 4.46 | (missing) | (missing) | | (unavailable | 04:09:07 | [facility] | | | | + + + +--------+ + + + + | Result panel 496 | + + + + + +--------+ + + | | 2023-07-15 | [facility] | 13.1 | (missing) | (missing) | | (unavailable | 04:09:07 | [facility] | | | | + + + +--------+ + + + + | Result panel 497 | + + + + + +--------+ + + | | 2023-07-15 | [facility] | 38.4 | (missing) | (missing) | | (unavailable | 04:09:07 | [facility] | | | | + + + +--------+ + + + + | Result panel 498 | + + + + + +--------+ + + | | 2023-07-15 | [facility] | 86.1 | (missing) | (missing) | | (unavailable | 04:09:07 | [facility] | | | | + + + +--------+ + + + + | Result panel 499 | + + + + + +--------+ + + | | 2023-07-15 | [facility] | 29.4 | (missing) | (missing) | | (unavailable | 04:09:07 | [facility] | | | | + + + +--------+ + + + + | Result panel 500 | + + + + + +--------+ + + | | 2023-07-15 | [facility] | 34.2 | (missing) | (missing) | | (unavailable | 04:09:07 | [facility] | | | | + + + +--------+ + + + + | Result panel 501 | + + + + + +--------+ + + | | 2023-07-15 | [facility] | 12.9 | (missing) | (missing) | | (unavailable | 04:09:07 | [facility] | | | | + + + +--------+ + + + + | Result panel 502 | + + + + + +--------+ [...] 504 | + + + + + +--------+ + + | | 2023-07-15 | [facility] | 48.8 | (missing) | (missing) | | (unavailable | 04:: | [facility] | | | | + + + +--------+ + + + + | Result panel 505 | + + + + + +--------+ + + | | 2023-07-15 | [facility] | 30.9 | (missing) | (missing) | | (unavailable | 04::07 | [facility] | | | | + + + +--------+ + + + + | Result panel 506 | + + + + + +-------+ + + | | 2023-07-15 | [facility] | 8.9 | (missing) | (missing) | | (unavailable | 04:: | [facility] | | | | + + + +-------+ + + + + | Result panel 507 | + + + + + +--------+ + + | | 2023-07-15 | [facility] | 10.9 | (missing) | (missing) | | (unavailable | 04:: | [facility] | | | | + + + +--------+ + + + + | Result panel 508 | + + + + + +-------+ + + | | 2023-07-15 | [facility] | 0.5 | (missing) | (missing) | | (unavailable | 04::07 | [facility] | | | | + + + +-------+ + + + + | Result panel 509 | + + + + + +-------+---------+ + | | 2023-07-15 | [facility] | 103 | mg/dL | (missing) | | (unavailable | 04:09:07 | [facility] | | | | + + + +-------+---------+ + + + | Result panel 510 | + + + + + +------+---------+ + | | 2023-07-15 | [facility] | 10 | mg/dL | (missing) | | (unavailable | 04:09:07 | [facility] | | | | + + + +------+---------+ + + + | Result panel 511 | + + + + + +--------+---------+ + | | 2023-07-15 | [facility] | 0.64 | mg/dL | (missing) | | (unavailable | 04:09:07 | [facility] | | | | + + + +--------+---------+ + + + | Result panel 512 | + + + + + +-------+ + + | | 2023-07-15 | [facility] | 129 | (missing) | (missing) | | (unavailable | 04:09:07 | [facility] | | | | + + + +-------+ + + + + | Result panel 513 | + + + + + +--------+ + + | | 2023-07-15 | [facility] | 12.9 | (missing) | (missing) | | (unavailable | 04:09:07 | [facility] | | | | + + + +--------+ + + + + | Result panel 514 | + + + + + +---------+ + + | | 2023-07-15 | [facility] | 15.62 | (missing) | (missing) | | (unavailable | 04:09:07 | [facility] | | | | + + + +---------+ + + + + | Result panel 515 | + + + + + +-------+ + + | | 2023-07-15 | [facility] | 139 | (missing) | (missing) | | (unavailable | 04:09:07 | [facility] | | | | + + + +-------+ + + + + | Result panel 516 | + + + + + +-------+ [...] 520 | + + + + + +-------+---------+ + | | 2023-07-15 | [facility] | 9.4 | mg/dL | (missing) | | (unavailable | 04:09:07 | [facility] | | | | + + + +-------+---------+ + + + | Result panel 521 [...] 522 | + + + + + +-------+ + + | | 2023-07-15 | [facility] | 4.4 | (missing) | (missing) | | (unavailable | 04:09:07 | [facility] | | | | + + + +-------+ + + + + | Result panel 523 | + + + + + +-------+ + + | | 2023-07-15 | [facility] | 3.3 | (missing) | (missing) | | (unavailable | 04:09:07 | [facility] ) [facility] | | | | + + + +-------+ + + Social History + + + + | date | description | facility | + + + + | 2022-06-09 00:00 | Never smoker | [facility] | + + + + [...]
--- OUTSIDE RECORDS SUMMARY | ~2023-07-17 | XMS | Continuity of Care Document ---
Demographics + + + | Address | [address] | | | [place] [address] | + + + | Preferred Language | Unknown | + + + | Marital Status | Never | + + + | Catholic Affiliation | Unknown | + + + | Race | White | + + + | Ethnic Group | Not or | + + + Author + + + | Author | [facility] | + + + | Organization | [facility] | + + + | Address | [address] | | | [place] [address] | + + + | Phone | | + + + Care Team Providers + + + + | Care Hair Sample Matcher Name | Role | Phone | + [...] | 2018-06-26 00:00 | Tdap | [facility] | + + + + | 2022-06-09 00:00 | No vaccine administered | [facility] | + + + + Medications + + + + | date | description | facility | + + + + | 2023-07-10 00:00 | ONDANSETRON | [facility] | + + + + | 2022-06-09 00:00 | OXYCODONE | [facility] | | | HCL/ACETAMINOPHEN | | + + + + | 2022-06-09 00:00 | acetaminophen 325 MG / | [facility] | | | oxycodone hydrochloride 7.5 | | | | MG Oral T | | + + + + | 2023-07-17 00:00 | Ergocalciferol (Vitamin | [facility] | | | D2) | | + + + + | 2022-06-09 00:00 | IBUPROFEN | [facility] | + + + + | 2022-06-09 00:00 | ibuprofen 600 MG Oral | [facility] | | | Tablet | | + + + + | 2022-06-06 00:00 | OMEPRAZOLE | [facility] | + + + + | 2023-07-17 00:00 | OMEPRAZOLE | [facility] | + + + + | 2022-06-06 00:00 | omeprazole 20 MG Delayed | [facility] | | | Release Oral Capsule | | + + + + | 2023-07-04 00:00 | ONDANSETRON HCL | [facility] | + + + + | 2023-07-10 00:00 | ONDANSETRON HCL | [facility] | + + + + | 2023-07-15 00:00 | ONDANSETRON HCL | [facility] | + + + + | 2022-06-09 00:00 | ACETAMINOPHEN | [facility] | + + + + | 2022-06-09 00:00 | acetaminophen 500 MG Oral | [facility] | | | Tablet | | + + + + | 2023-07-04 00:00 | FLUOXETINE HCL | [facility] | + + + + | 2023-07-10 00:00 | FLUOXETINE HCL | [facility] | + + + + | 2023-07-15 00:00 | FLUOXETINE HCL | [facility] | + + + + | 2023-07-17 00:00 | FLUOXETINE HCL | [facility] | + + + + | 2023-07-04 00:00 | SUCRALFATE | [facility] | + + + + | 2023-07-15 00:00 | SUCRALFATE | [facility] | + + + + | 2015-01-28 00:00 | AZITHROMYCIN | [facility] | + + + + | 2015-01-28 00:00 | azithromycin 250 MG Oral | [facility] | | | Tablet [Zithromax] | | + + + + | 2022-05-27 00:00 | ONDANSETRON | [facility] | + + + + | 2023-01-25 00:00 | ONDANSETRON | [facility] | + + + + | 2022-05-27 00:00 | ondansetron 8 MG | [facility] | | | Disintegrating Oral Tablet | | + + + + | 2023-07-17 00:00 | VALACYCLOVIR HCL | [facility] | + + + + | 2022-06-06 00:00 | DICYCLOMINE HCL | [facility] | + + + + | 2022-06-06 00:00 | dicyclomine hydrochloride | [facility] | | | 20 MG Oral Tablet | | + + + + | 2023-07-17 00:00 | PROMETHAZINE HCL | [facility] | + + + + | 2023-07-17 00:00 | PROMETHAZINE HCL | [facility] | + + + + Problems + + + + | date | description | facility | + + + + | 2015-01-28 00:00 | Bronchitis | [facility] | + + + + | 2018-06-26 00:00 | Contusion of face | [facility] | + + + + | 2018-06-26 00:00 | Contusion of left knee | [facility] | + + + + | 2022-05-27 00:00 | Acute gastritis | [facility] | + + + + | 2022-06-07 00:00 | Dehydration | [facility] | + + + + | 2022-06-07 00:00 | Abdominal pain | [facility] | + + + + | 2022-11-09 00:00 | Vomiting | [facility] | + + + + [...] + + | 2023-01-25 08:23 | OTHER [facility] (CURRENT) | [facility] | | | DRUG [facility]APY | | + + + + | 2023-07-04 07:41 | GASTRITIS, UNSPECIFIED, | [facility] | | | WITHOUT BLEEDING | | + + + + | 2023-07-04 07:41 | NAUSEA WITH VOMITING, | [facility] | | | UNSPECIFIED | | + + + + | 2023-07-04 07:41 | OTHER [facility] (CURRENT) | [facility] | | | DRUG TH[facility]APY | | + + + + | 2023-07-07 00:00 | Gastritis | [facility] | + + + + | 2023-07-10 07:04 | GASTRITIS, UNSPECIFIED, | [facility] | | | WITHOUT BLEEDING | | + + + + | 2023-07-10 07:04 | EPIGASTRIC PAIN | [facility] | + + + + | 2023-07-10 07:04 | OTHER [facility] (CURRENT) | [facility] | | | DRUG THERAPY | | + + + + | 2023-07-15 00:00 | Epigastric pain | [facility] | + + + + | 2023-07-15 03:49 | UPPER ABDOMINAL PAIN, | [facility] | | | UNSPECIFIED | | + + + + | 2023-07-15 03:49 | EPIGASTRIC PAIN | [facility] | + + + + | 2023-07-15 03:49 | OTHER [facility] (CURRENT) | [facility] | | | DRUG THERAPY | | + + + + | 2023-07-17 00:00 | Cyclic vomiting syndrome | [facility] | + + + + Procedures + + + + | date | description | facility | + + + + | 2022-06-08 00:00 | Laparoscopic | [facility] | | | cholecystectomy with | | | | cholangiography | | + + + + | 2022-06-08 00:00 | Laparoscopic | [facility] | | | cholecystectomy with [...] (missing) | | (unavailable | 13:35 | [facility] | | | | | [...] (missing) | | (unavailable | 13:35 | [facility] | | | | | [...] (missing) | | (unavailable | 05:15 | [facility] | | | | | [...] (missing) | | (unavailable | 11:16:07 | [facility] | | | | | [...] (missing) | | (unavailable | 04:09:07 | [facility] | | | | | [...] 2022-06-09 00:00 | Never smoker | [facility] | + + + + Vital [...]
[~2023-07-17 11:40] MED LIST changes: +PROMETHAZINE HC25 M1 PO; +PROMETHAZINE HC25 MG PR; +VALACYCLOVIR1000 MG PO; +VITAMIN D21250 MCG PO
--- OUTSIDE RECORDS SUMMARY | 2023-07-17 11:49 | XMS ---
PreManage Notification: KATERIN MARINA Security Community Leader Events No recent Security Events currently on file CRITERIA MET - 6 ED Visits in 6 Months - [facility] - 2 Visits in 30 Days CARE PROVIDERS LION MCKEE Nurse Practitioner: Family Current PHONE: [phone] ZION BLOCK [facility] Current PHONE: [phone] Juan has no Care Guidelines for this patient. E.DSruthi VISIT COUNT (12 MO.) [address] [place] [address] TOTAL 9 NOTE: Visits indicate total known visits. ED/UCC VISIT TRACKING (12 MO.) 07/17/2023 11:[address] [facility] [place] TYPE: Emergency COMPLAINT: - ABD PAIN, VOMITING 07/17/2023 05:[address] [facility] [place] TYPE: Emergency COMPLAINT: - ABD PAIN 07/15/2023 03:[address] [facility] [place] TYPE: Emergency COMPLAINT: - ABD PAIN DIAGNOSES: - Epigastric pain - Other chcf (current) drug therapy - Upper abdominal pain, unspecified 07/10/2023 07:[address] [facility] [address] 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 [place] TYPE: Emergency COMPLAINT: - VOMITING DIAGNOSES: - Acquired absence of other specified parts of digestive tract - Nausea with vomiting, unspecified 10/10/2022 16:59 [facility] [place] TYPE: Emergency COMPLAINT: - Unspecified abdominal pain - Nausea with vomiting, unspecified DIAGNOSES: 1. Nausea with vomiting, unspecified [facility]22 [facility] [place] [facility] DIAGNOSES: - Nausea with vomiting, unspecified - Abdominal Pain - Emesis INPATIENT VISIT TRACKING (12 MO.) No inpatient visits to display in this time frame [email or web address]
[2023-07-17] MEDS ORDERED: COMPAZINE25 MG PR (16:25)
[2023-07-17 16:32] VITALS: BP 107/61
== END 2023-07-17 16:36 | disposition home or self-care (01) ==
LOC: ED 11:40
DX: R11.15 Cyclical vomiting syndrome unrelated to migraine (principal); Z91.018 Allergy to other foods
CPT/HCPCS: 99284

== ENCOUNTER 2023-07-21 06:46 | Emergency (ER) | payer OTHER, BC ==
[~2023-07-21] VITALS: Ht 152.4 cm; Wt 58.0 kg
--- OUTSIDE RECORDS SUMMARY | ~2023-07-21 | XMS | Continuity of Care Document ---
Demographics + + + | Address | [address] | | | [place] [address] | + + + | Preferred Language | Unknown | + + + | Marital Status | Never | + + + | Anabaptist Affiliation | Unknown | + + + | Race | White | + + + | Ethnic Group | Not or | + + + Author + + + | Author | [facility] | + + + | Organization | [facility] | + + + | Address | [address] | | | [place] [address] | + + + | Phone | | + + + Care Team Providers + + + + | Care Golf Cart Attendant Name | Role | Phone | + [...] + + + | (no date) | Capsaicin | [facility] | (no reaction) | (no severity) | | | | [facility] | | | + + + + + + | (no date) | Rash | [facility] | (no reaction) | (no severity) | | | | [facility] | | | + + + + + + | (no date) | Capsaicin | [facility] | (no reaction) | (no severity) | | | | [facility] | | | + + + + + + | (no date) | No Known Drug | [facility] | (no reaction) | (no severity) | | | Allergies | | | | + + + + + + | (no date) | Capsaicin | [facility] | (no reaction) | (no severity) | | | | [facility] | | | + + + + + + Encounters No information. Functional Status No information. Immunizations + + + + | date | description | facility | + + + + | 2018-06-26 00:00 | Tdap | [facility] | + + + + | 2022-06-09 00:00 | No vaccine administered | [facility] | + + + + Medications + + + + | date | description | facility | + + + + | 2023-07-10 00:00 | ONDANSETRON | [facility] | + + + + | 2022-06-09 00:00 | OXYCODONE | [facility] | | | HCL/ACETAMINOPHEN | | + + + + | 2022-06-09 00:00 | acetaminophen 325 MG / | [facility] | | | oxycodone hydrochloride 7.5 | | | | MG Oral T | | + + + + | 2023-07-17 00:00 | Ergocalciferol (Vitamin | [facility] | | | D2) | | + + + + | 2022-06-09 00:00 | IBUPROFEN | [facility] | + + + + | 2022-06-09 00:00 | ibuprofen 600 MG Oral | [facility] | | | Tablet | | + + + + | 2022-06-06 00:00 | OMEPRAZOLE | [facility] | + + + + | 2023-07-17 00:00 | OMEPRAZOLE | [facility] | + + + + | 2022-06-06 00:00 | omeprazole 20 MG Delayed | [facility] | | | Release Oral Capsule | | + + + + | 2023-07-04 00:00 | ONDANSETRON HCL | [facility] | + + + + | 2023-07-10 00:00 | ONDANSETRON HCL | [facility] | + + + + | 2023-07-15 00:00 | ONDANSETRON HCL | [facility] | + + + + | 2022-06-09 00:00 | ACETAMINOPHEN | [facility] | + + + + | 2022-06-09 00:00 | acetaminophen 500 MG Oral | [facility] | | | Tablet | | + + + + | 2023-07-04 00:00 | FLUOXETINE HCL | [facility] | + + + + | 2023-07-10 00:00 | FLUOXETINE HCL | [facility] | + + + + | 2023-07-15 00:00 | FLUOXETINE HCL | [facility] | + + + + | 2023-07-17 00:00 | FLUOXETINE HCL | [facility] | + + + + | 2023-07-17 00:00 | PROCHLORPERAZINE MALEATE | [facility] | + + + + | 2023-07-04 00:00 | SUCRALFATE | [facility] | + + + + | 2023-07-15 00:00 | SUCRALFATE | [facility] | + + + + | 2015-01-28 00:00 | AZITHROMYCIN | [facility] | + + + + | 2015-01-28 00:00 | azithromycin 250 MG Oral | [facility] | | | Tablet [Zithromax] | | + + + + | 2022-05-27 00:00 | ONDANSETRON | [facility] | + + + + | 2023-01-25 00:00 | ONDANSETRON | [facility] | + + + + | 2022-05-27 00:00 | ondansetron 8 MG | [facility] | | | Disintegrating Oral Tablet | | + + + + | 2023-07-17 00:00 | VALACYCLOVIR HCL | [facility] | + + + + | 2022-06-06 00:00 | DICYCLOMINE HCL | [facility] | + + + + | 2022-06-06 00:00 | dicyclomine hydrochloride | [facility] | | | 20 MG Oral Tablet | | + + + + | 2023-07-17 00:00 | PROMETHAZINE HCL | [facility] | + + + + | 2023-07-17 00:00 | PROMETHAZINE HCL | [facility] | + + + + Problems + + + + | date | description | facility | + + + + | 2015-01-28 00:00 | Bronchitis | [facility] | + + + + | 2018-06-26 00:00 | Contusion of face | [facility] | + + + + | 2018-06-26 00:00 | Contusion of left knee | [facility] | + + + + | 2022-05-27 00:00 | Acute gastritis | [facility] | + + + + | 2022-06-07 00:00 | Dehydration | [facility] | + + + + | 2022-06-07 00:00 | Abdominal pain | [facility] | + + + + | 2022-11-09 00:00 | Vomiting | [facility] | + + + + | [...] + + | 2023-01-25 08:23 | OTHER PENITENTIARY (CURRENT) | [facility] | | | DRUG THERAPY | | + + + + | 2023-07-04 07:41 | GASTRITIS, UNSPECIFIED, | [facility] | | | WITHOUT BLEEDING | | + + + + | 2023-07-04 07:41 | NAUSEA WITH VOMITING, | [facility] | | | UNSPECIFIED | | + + + + | 2023-07-04 07:41 | 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) | [facility] | | | DRUG THERAPY | | + + + + | 2023-07-07 00:00 | Gastritis | [facility] | + + + + | 2023-07-10 07:04 | GASTRITIS, UNSPECIFIED, | [facility] | | | WITHOUT BLEEDING | | + + + + | 2023-07-10 07:04 | EPIGASTRIC PAIN | [facility] | + + + + | 2023-07-10 07:04 | OTHER PENITENTIARY (CURRENT) | [facility] | | | DRUG TH[facility]APY | | + + + + | 2023-07-15 00:00 | Epigastric pain | [facility] | + + + + | 2023-07-15 03:49 | UPPER ABDOMINAL PAIN, | [facility] | | | UNSPECIFIED | | + + + + | 2023-07-15 03:49 | EPIGASTRIC PAIN | [facility] | + + + + | 2023-07-15 03:49 | OTHER PENITENTIARY (CURRENT) | [facility] | | | DRUG THERAPY | | + + + + | 2023-07-17 00:00 | Cyclic vomiting syndrome | [facility] | + + + + | 2023-07-17 05:35 | UNSPECIFIED ABDOMINAL PAIN | [facility] | | | | | + + + + | 2023-07-17 05:35 | CYCLICAL VOMITING SYNDROME | [facility] | | | UNRELATED TO MIGRAINE | | + + + + | 2023-07-17 05:35 | OTHER PENITENTIARY (CURRENT) | [facility] | | | DRUG THERAPY | | + + + + | 2023-07-17 11:40 | UNSPECIFIED ABDOMINAL PAIN | [facility] | | | | | + + + + | 2023-07-17 11:40 | CYCLICAL VOMITING SYNDROME | [facility] | | | UNRELATED TO MIGRAINE | | + + + + | 2023-07-17 11:40 | ALLERGY TO OTHER FOODS | [facility] | + + + + Procedures + + + + | date | description | facility | + + + + | 2022-06-08 00:00 | Laparoscopic | [facility] | | | cholecystectomy with | | | | cholangiography | | + + + + | 2022-06-08 00:00 | Laparoscopic | [facility] | | | cholecystectomy with | [...] (missing) | | (unavailable | 13:35 | [facility] | | | | | ) | [...] (missing) | | (unavailable | 08:51 | [facility] | | | | | ) | [...] Result panel 226 | + + +-------+ +-------+ + + + | HCG | 2022-09-25 | [facility] | Negative | (missing) | (missing) | | | 11:34 | | | | | +-------+ +-------+ + + + | HCG | 2022-09-25 | [facility] | Negative | (missing) | (missing) | | | 11:34 | | | | | +-------+ +-------+ + + + + + | Result [...] 334 | + + + + + +---------+ + + | | 2023-07-04 | [facility] | 1.075 | (missing) | (missing) | | (unavailable | 08:12:07 | [facility] | | | | + + + +---------+ + + + + | Result panel 335 | + + + + + +---------+ + + | | 2023-07-04 | [facility] | 1.075 | (missing) | (missing) | | (unavailable | 08:12:07 | [facility] | | | | + + + +---------+ + + + + | Result panel 336 | + + + + + +------+ + + | | 2023-07-04 | [facility] | 84 | (missing) | (missing) | | (unavailable | 08:27:07 | [facility] | | | | + + + +------+ + + + + | Result panel 337 | + + + + + +------+ + + | | 2023-07-04 | [facility] | 12 | (missing) | (missing) | | (unavailable | 08:27:07 | [facility] | | | | + + + +------+ + + + + | Result panel 338 | + + + + + +-----+ + + | | 2023-07-04 | [facility] | 4 | (missing) | (missing) | | (unavailable | 08:27:07 | [facility] | | | | + + + +-----+ + + + + | Result panel 339 | + + + + + + + + + | | 2023-07-04 | [facility] | SEE COMMENT | (missing) | (missing) | | (unavailable | 08:27:07 | [facility] | | | | + + + + + + + + + | Result panel 340 | + + + + + +------+ + + | | 2023-07-04 | [facility] | 84 | (missing) | (missing) | | (unavailable | 08:27:07 | [facility] | | | | + + + +------+ + + + + | Result panel 341 | + + + + + +------+ + + | | 2023-07-04 | [facility] | 12 | (missing) | (missing) | | (unavailable | 08:27:07 | [facility] | | | | + + + +------+ + + + + | Result panel 342 | + + + + + +-----+ + + | | 2023-07-04 | [facility] | 4 | (missing) | (missing) | | (unavailable | 08:27:07 | [facility] | | | | + + + +-----+ + + + + | Result panel 343 | + + + + + + [...] 345 | + + + + + +--------+ + + | | 2023-07-04 | [facility] | 4.91 | (missing) | (missing) | | (unavailable | 08:27:07 | [facility] | | | | + + + +--------+ + + + + | Result panel 346 | + + + + + +--------+ + + | | 2023-07-04 | [facility] | 14.0 | (missing) | (missing) | | (unavailable | 08:27:07 | [facility] | | | | + + + +--------+ + + + + | Result panel 347 | + + + + + +--------+ + + | | 2023-07-04 | [facility] | 42.7 | (missing) | (missing) | | (unavailable | 08:27:07 | [facility] | | | | + + + +--------+ + + + + | Result panel 348 | + + + + + +--------+ + + | | 2023-07-04 | [facility] | 86.9 | (missing) | (missing) | | (unavailable | 08::07 | [facility] | | | | + + + +--------+ + + + + | Result panel 349 | + + + + + +--------+ + + | | 2023-07-04 | [facility] | 28.6 | (missing) | (missing) | | (unavailable | :07 | [facility] | | | | + + + +--------+ + + + + | Result panel 350 | + + + + + +--------+ + + | | 2023-07-04 | [facility] | 32.9 | (missing) | (missing) | | (unavailable | 08:27:07 | [facility] | | | | + + + +--------+ + + + + | Result panel 351 | + + + + + +--------+ + + | | 2023-07-04 | [facility] | 12.9 | (missing) | (missing) | | (unavailable | 08::07 | [facility] | | | | + + + +--------+ + + + + | Result panel 352 | + + + + + +-------+ + + | | 2023-07-04 | [facility] | 417 | (missing) | (missing) | | (unavailable | 08:27:07 | [facility] | | | | + + + +-------+ + + + + | Result panel 353 | + + + + + +------+ + + | | 2023-07-04 | [facility] | 84 | (missing) | (missing) | | (unavailable | 08:27:07 | [facility] | | | | + + + +------+ + + + + | Result panel 354 | + + + + + +------+ + + | | 2023-07-04 | [facility] | 12 | (missing) | (missing) | | (unavailable | 08:27:07 | [facility] | | | | + + + +------+ + + + + | Result panel 355 | + + + + + +-----+ + + | | 2023-07-04 | [facility] | 4 | (missing) | (missing) | | (unavailable | 08:27:07 | [facility] | | | | + + + +-----+ + + + + | Result panel 356 | + + + + + + + + + | | 2023-07-04 | [facility] | SEE COMMENT | (missing) | (missing) | | (unavailable | 08:27:07 | [facility] | | | | + + + + + + + + + | Result panel 357 | + + + + + +-------+---------+ + | | 2023-07-04 | [facility] | 120 | mg/dL | (missing) | | (unavailable | 08:27:07 | [facility] | | | | + + + +-------+---------+ + + + | Result panel 358 | + + + + + +------+---------+ + | | 2023-07-04 | [facility] | 10 | mg/dL | (missing) | | (unavailable | 08:27:07 | [facility] | | | | + + + +------+---------+ + + + | Result panel 359 | + + + + + +--------+---------+ + | | 2023-07-04 | [facility] | 0.70 | mg/dL | (missing) | | (unavailable | 08:27:07 | [facility] | | | | + + + +--------+---------+ + + + | Result panel 360 [...] 361 | + + + + + +---------+ [...] 364 | + + + + + +-------+ [...] 366 | + + + + + +--------+ + + | | 2023-07-04 | [facility] | 14.0 | (missing) | (missing) | | (unavailable | 08:27:07 | [facility] | | | | + + + +--------+ + + + + | Result panel 367 | + + + + + +-------+---------+ + | | 2023-07-04 | [facility] | 9.3 | mg/dL | (missing) | | (unavailable | 08:27:07 | [facility] | | | | + + + +-------+---------+ + + + | Result panel 368 | + + + + + +-------+ + + | | 2023-07-04 | [facility] | 8.2 | (missing) | (missing) | | (unavailable | 08:27:07 | [facility] | | | | + + + +-------+ + + + + | Result panel 369 | + + + + + +-------+ + + | | 2023-07-04 | [facility] | 4.6 | (missing) | (missing) | | (unavailable | 08:27:07 | [facility] | | | | + + + +-------+ + + + + | Result panel 370 | + + + + + +-------+ + + | | 2023-07-04 | [facility] | 3.6 | (missing) | (missing) | | (unavailable | 08:27:07 | [facility] | | | | + + + +-------+ + + + + | Result panel 371 | + + + + + +--------+ + + | | 2023-07-04 | [facility] | 1.28 | (missing) | (missing) | | (unavailable | 08:27:07 | [facility] | | | | + + + +--------+ + + + + | Result panel 372 | + + + + + +-------+ [...] 374 | + + + + + +------+ + + | | 2023-07-04 | [facility] | 26 | (missing) | (missing) | | (unavailable | 08:27:07 | [facility] | | | | + + + +------+ + + + + | Result panel 375 | + + + + + +------+ + + | | 2023-07-04 | [facility] | 55 | (missing) | (missing) | | (unavailable | 08:27:07 | [facility] | | | | + + + +------+ + + + + | Result panel 376 | + + + + + +------+ [...] 378 | + + + + + +------+ + + | | 2023-07-04 | [facility] | 84 | (missing) | (missing) | | (unavailable | 08:27:07 | [facility] | | | | + + + +------+ + + + + | Result panel 379 | + + + + + +------+ + + | | 2023-07-04 | [facility] | 12 | (missing) | (missing) | | (unavailable | 08:27:07 | [facility] | | | | + + + +------+ + + + + | Result panel 380 | + + + + + +-----+ [...] 382 | + + + + + +------+ + + | | 2023-07-04 | [facility] | 84 | (missing) | (missing) | | (unavailable | 08:27:07 | [facility] | | | | + + + +------+ + + + + | Result panel 383 | + + + + + +------+ + + | | 2023-07-04 | [facility] | 12 | (missing) | (missing) | | (unavailable | 08:27:07 | [facility] | | | | + + + +------+ + + + + | Result panel 384 | + + + + + +-----+ + + | | 2023-07-04 | [facility] | 4 | (missing) | (missing) | | (unavailable | 08:27:07 | [facility] | | | | + + + +-----+ + + + + | Result panel 385 | + + + + + + + + + | | 2023-07-04 | [facility] | SEE COMMENT | (missing) | (missing) | | (unavailable | 08:27:07 | [facility] | | | | + + + + + + + + + | Result panel 386 | + + + + + +-------+ [...] 389 | + + + + + + + + + | | 2023-07-04 | [facility] | NEGATIVE | (missing) | (missing) | | (unavailable | 11:16:07 | [facility] | | | | + + + + + + + + + | Result panel 390 | + + + + + + [...] 392 | + + + + + +---------+ [...] 395 | + + + + + +---------+ + + | | 2023-07-04 | [facility] | SMALL | (missing) | (missing) | | (unavailable | 11:16:07 | [facility] | | | | + + + +---------+ + + + + | Result panel 396 | + + + + + +---------+ [...] 398 | + + + + + +-------+ + + | | 2023-07-04 | [facility] | 5.5 | (missing) | (missing) | | (unavailable | 11:16:07 | [facility] | | | | + + + +-------+ + + + + | Result panel 399 | + + + + + + + + + | | 2023-07-04 | [facility] | NEGATIVE | (missing) | (missing) | | (unavailable | 11:16:07 | [facility] | | | | + + + + + + + + + | Result panel 400 | + + + + + + + + + | | 2023-07-04 | [facility] | NORMAL | (missing) | (missing) | | (unavailable | 11:16:07 | [facility] | | | | + + + + + + + + + | Result panel 401 | + + + + + + + + + | | 2023-07-04 | [facility] | NEGATIVE | (missing) | (missing) | | (unavailable | 11:16:07 | [facility] | | | | + + + + + + + + + | Result panel 402 | + + + + + + + + + | | 2023-07-04 | [facility] | NEGATIVE | (missing) | (missing) | | (unavailable | 11:16:07 | [facility] | | | | + + + + + + + + + | Result panel 403 | + + + + + + + + + | | 2023-07-04 | [facility] | YELLOW | (missing) | (missing) | | (unavailable | 11:16:07 | [facility] | | | | + + + + + + + + + | Result panel 404 | + + + + + +---------+ [...] 407 | + + + + + +---------+ + + | | 2023-07-04 | [facility] | SMALL | (missing) | (missing) | | (unavailable | 11:16:07 | [facility] | | | | + + + +---------+ + + + + | Result panel 408 | + + + + + +---------+ + + | | 2023-07-04 | [facility] | 1.010 | (missing) | (missing) | | (unavailable | 11:16:07 | [facility] | | | | + + + +---------+ + + + + | Result panel 409 | + + + + + + + + + | | 2023-07-04 | [facility] | NEGATIVE | (missing) | (missing) | | (unavailable | 11::07 | [facility] | | | | | [...] 411 | + + + + + + + + + | | 2023-07-04 | [facility] | NEGATIVE | (missing) | (missing) | | (unavailable | 11:16:07 | [facility] | | | | + + + + + + + + + | Result panel 412 | + + + + + + + + + | | 2023-07-04 | [facility] | NORMAL | (missing) | (missing) | | (unavailable | 11:16:07 | [facility] | | | | + + + + + + + + + | Result panel 413 | + + + + + + + + + | | 2023-07-04 | [facility] | NEGATIVE | (missing) | (missing) | | (unavailable | 11:16:07 | [facility] | | | | + + + + + + + + + | Result panel 414 | + + + + + + + + + | | 2023-07-04 | [facility] | NEGATIVE | (missing) | (missing) | | (unavailable | 11:16:07 | [facility] | | | | + + + + + + + + + | Result panel 415 | + + + + + + + + + | | 2023-07-04 | [facility] | YELLOW | (missing) | (missing) | | (unavailable | 11:16:07 | [facility] | | | | + + + + + + + + + | Result panel 416 | + + + + + +---------+ [...] 418 | + + + + + + + + + | | 2023-07-04 | [facility] | NEGATIVE | (missing) | (missing) | | (unavailable | 11:16:07 | [facility] | | | | + + + + + + + + + | Result panel 419 | + + + + + +---------+ + + | | 2023-07-04 | [facility] | SMALL | (missing) | (missing) | | (unavailable | 11:16:07 | [facility] | | | | + + + +---------+ + + + + | Result panel 420 | + + + + + +---------+ + + | | 2023-07-04 | [facility] | 1.010 | (missing) | (missing) | | (unavailable | 11:16:07 | [facility] | | | | + + + +---------+ + + + + | Result panel 421 | + + + + + + + + + | | 2023-07-04 | [facility] | NEGATIVE | (missing) | (missing) | | (unavailable | 11:16:07 | [facility] | | | | + + + + + + + + + | Result panel 422 | + + + + + +-------+ + + | | 2023-07-04 | [facility] | 5.5 | (missing) | (missing) | | (unavailable | 11:16:07 | [facility] | | | | + + + +-------+ + + + + | Result panel 423 | + + + + + + + + + | | 2023-07-04 | [facility] | NEGATIVE | (missing) | (missing) | | (unavailable | 11:16:07 | [facility] | | | | + + + + + + + + + | Result panel 424 | + + + + + + + + + | | 2023-07-04 | [facility] | NORMAL | (missing) | (missing) | | (unavailable | 11:16:07 | [facility] | | | | + + + + + + + + + | Result panel 425 | + + + + + + + + + | | 2023-07-04 | [facility] | NEGATIVE | (missing) | (missing) | | (unavailable | 11:16:07 | [facility] | | | | + + + + + + + + + | Result panel 426 | + + + + + + + + + | | 2023-07-04 | [facility] | NEGATIVE | (missing) | (missing) | | (unavailable | 11:16:07 | [facility] | | | | + + + + + + + + + | Result panel 427 | + + + + + + + + + | | 2023-07-04 | [facility] | YELLOW | (missing) | (missing) | | (unavailable | 11:16:07 | [facility] | | | | + + + + + + + + + | Result panel 428 | + + + + + +---------+ + + | | 2023-07-04 | [facility] | CLEAR | (missing) | (missing) | | (unavailable | 11:16:07 | [facility] | | | | + + + +---------+ + + + + | Result panel 429 | + + + + + + + + + | | 2023-07-04 | [facility] | NEGATIVE | (missing) | (missing) | | (unavailable | 11:16:07 | [facility] | | | | + + + + + + + + + | Result panel 430 | + + + + + + + + + | | 2023-07-04 | [facility] | NEGATIVE | (missing) | (missing) | | (unavailable | 11:16:07 | [facility] | | | | + + + + + + + + + | Result panel 431 | + + + + + +---------+ + + | | 2023-07-04 | [facility] | SMALL | (missing) | (missing) | | (unavailable | 11:16:07 | [facility] | | | | + + + +---------+ + + + + | Result panel 432 | + + + + + +---------+ + + | | 2023-07-04 | [facility] | 1.010 | (missing) | (missing) | | (unavailable | 11:16:07 | [facility] | | | | + + + +---------+ + + + + | Result panel 433 | + + + + + + + + + | | 2023-07-04 | [facility] | NEGATIVE | (missing) | (missing) | | (unavailable | 11:16:07 | [facility] | | | | + + + + + + + + + | Result panel 434 | + + + + + + + + + | | 2023-07-10 | [facility] | NEGATIVE | (missing) | (missing) | | (unavailable | 07:20:07 | [facility] | | | | + + + + + + + + + | Result panel 435 | + + + + + + [...] 448 | + + + + + +-------+ [...] 451 | + + + + + +-----+---------+ + | | 2023-07-10 | [facility] | 8 | mg/dL | (missing) | | (unavailable | 07:20:07 | [facility] | | | | + + + +-----+---------+ + + + | Result panel 452 | + + + + + +--------+---------+ + | | 2023-07-10 | [facility] | 0.68 | mg/dL | (missing) | | (unavailable | 07:20:07 | [facility] | | | | | ) | [...] 470 | + + + + + + + + + | | 2023-07-10 | [facility] | NEGATIVE | (missing) | (missing) | | (unavailable | 07:20:07 | [facility] | | | | + + + + + + + + + | Result panel 471 | + + + + + + + + + | | 2023-07-10 | [facility] | NEGATIVE | (missing) | (missing) | | (unavailable | 07:20:07 | [facility] | | | | + + + + + + + + + | Result panel 472 | + + + + + +-------+ + + | | 2023-07-15 | [facility] | 430 | (missing) | (missing) | | (unavailable | 04:09:07 | [facility] | | | | + + + +-------+ + + + + | Result panel 473 | + + + + + +--------+ + + | | 2023-07-15 | [facility] | 48.8 | (missing) | (missing) | | (unavailable | 04:09:07 | [facility] | | | | + + + +--------+ + + + + | Result panel 474 | + + + + + +--------+ + + | | 2023-07-15 | [facility] | 30.9 | (missing) | (missing) | | (unavailable | 04:09:07 | [facility] | | | | + + + +--------+ + + + + | Result panel 475 | + + + + + +-------+ + + | | 2023-07-15 | [facility] | 8.9 | (missing) | (missing) | | (unavailable | 04:09:07 | [facility] | | | | + + + +-------+ + + + + | Result panel 476 | + + + + + +--------+ + + | | 2023-07-15 | [facility] | 10.9 | (missing) | (missing) | | (unavailable | 04:09:07 | [facility] | | | | + + + +--------+ + + + + | Result panel 477 | + + + + + +-------+ + + | | 2023-07-15 | [facility] | 0.5 | (missing) | (missing) | | (unavailable | 04:09:07 | [facility] | | | | + + + +-------+ + + + + | Result panel 478 | + + + + + +-------+---------+ + | | 2023-07-15 | [facility] | 103 | mg/dL | (missing) | | (unavailable | 04::07 | [facility] | | | | + + + +-------+---------+ + + + | Result panel 479 | + + + + + +------+---------+ + | | 2023-07-15 | [facility] | 10 | mg/dL | (missing) | | (unavailable | 04:09:07 | [facility] | | | | + + + +------+---------+ + + + | Result panel 480 | + + + + + +-------+ + + | | 2023-07-15 | [facility] | 8.9 | (missing) | (missing) | | (unavailable | 04::07 | [facility] | | | | + + + +-------+ + + + + | Result panel 481 | + + + + + +--------+ + + | | 2023-07-15 | [facility] | 4.46 | (missing) | (missing) | | (unavailable | 04::07 | [facility] | | | | + + + +--------+ + + + + | Result panel 482 | + + + + + +--------+ + + | | 2023-07-15 | [facility] | 13.1 | (missing) | (missing) | | (unavailable | 04:09:07 | [facility] | | | | + + + +--------+ + + + + | Result panel 483 | + + + + + +--------+---------+ + | | 2023-07-15 | [facility] | 0.64 | mg/dL | (missing) | | (unavailable | 04:09:07 | [facility] | | | | + + + +--------+---------+ + + + | Result panel 484 | + + + + + +--------+ + + | | 2023-07-15 | [facility] | 38.4 | (missing) | (missing) | | (unavailable | 04:09:07 | [facility] | | | | + + + +--------+ + + + + | Result panel 485 | + + + + + +--------+ + + | | 2023-07-15 | [facility] | 86.1 | (missing) | (missing) | | (unavailable | 04:09:07 | [facility] | | | | + + + +--------+ + + + + | Result panel 486 | + + + + + +--------+ + + | | 2023-07-15 | [facility] | 29.4 | (missing) | (missing) | | (unavailable | 04:09:07 | [facility] | | | | + + + +--------+ + + + + | Result panel 487 | + + + + + +--------+ + + | | 2023-07-15 | [facility] | 34.2 | (missing) | (missing) | | (unavailable | 04:09:07 | [facility] | | | | + + + +--------+ + + + + | Result panel 488 | + + + + + +--------+ + + | | 2023-07-15 | [facility] | 12.9 | (missing) | (missing) | | (unavailable | 04:09:07 | [facility] | | | | + + + +--------+ + + + + | Result panel 489 | + + + + + +-------+ + + | | 2023-07-15 | [facility] | 430 | (missing) | (missing) | | (unavailable | 04:09:07 | [facility] | | | | + + + +-------+ + + + + | Result panel 490 | + + + + + +--------+ + + | | 2023-07-15 | [facility] | 48.8 | (missing) | (missing) | | (unavailable | 04:09:07 | [facility] | | | | + + + +--------+ + + + + | Result panel 491 | + + + + + +--------+ + + | | 2023-07-15 | [facility] | 30.9 | (missing) | (missing) | | (unavailable | 04:09:07 | [facility] | | | | + + + +--------+ + + + + | Result panel 492 | + + + + + +-------+ + + | | 2023-07-15 | [facility] | 8.9 | (missing) | (missing) | | (unavailable | 04:09:07 | [facility] | | | | + + + +-------+ + + + + | Result panel 493 | + + + + + +--------+ + + | | 2023-07-15 | [facility] | 10.9 | (missing) | (missing) | | (unavailable | 04::07 | [facility] | | | | + + + +--------+ + + + + | Result panel 494 | + + + + + +-------+ + + | | 2023-07-15 | [facility] | 129 | (missing) | (missing) | | (unavailable | 04:09:07 | [facility] | | | | + + + +-------+ + + + + | Result panel 495 | + + + + + +-------+ + + | | 2023-07-15 | [facility] | 0.5 | (missing) | (missing) | | (unavailable | 04::07 | [facility] | | | | + + + +-------+ + + + + | Result panel 496 | + + + + + +-------+---------+ + | | 2023-07-15 | [facility] | 103 | mg/dL | (missing) | | (unavailable | 04::07 | [facility] | | | | + + + +-------+---------+ + + + | Result panel 497 | + + + + + +------+---------+ + | | 2023-07-15 | [facility] | 10 | mg/dL | (missing) | | (unavailable | 04::07 | [facility] | | | | + + + +------+---------+ + + + | Result panel 498 | + + + + + +--------+---------+ + | | 2023-07-15 | [facility] | 0.64 | mg/dL | (missing) | | (unavailable | 04:09:07 | [facility] | | | | + + + +--------+---------+ + + + | Result panel 499 | + + + + + +-------+ + + | | 2023-07-15 | [facility] | 129 | (missing) | (missing) | | (unavailable | 04:09:07 | [facility] | | | | + + + +-------+ + + + + | Result panel 500 | + + + + + +---------+ + + | | 2023-07-15 | [facility] | 15.62 | (missing) | (missing) | | (unavailable | 04::07 | [facility] | | | | + + + +---------+ + + + + | Result panel 501 | + + + + + +-------+ + + | | 2023-07-15 | [facility] | 139 | (missing) | (missing) | | (unavailable | 04::07 | [facility] | | | | + + + +-------+ + + + + | Result panel 502 | + + + + + +-------+ + + | | 2023-07-15 | [facility] | 3.6 | (missing) | (missing) | | (unavailable | 04::07 | [facility] | | | | + + + +-------+ + + + + | Result panel 503 | + + + + + +-------+ + + | | 2023-07-15 | [facility] | 103 | (missing) | (missing) | | (unavailable | 04:09:07 | [facility] | | | | + + + +-------+ + + + + | Result panel 504 | + + + + + +------+ + + | | 2023-07-15 | [facility] | 22 | (missing) | (missing) | | (unavailable | 04:09:07 | [facility] | | | | + + + +------+ + + + + | Result panel 505 | + + + + + +-------+ + + | | 2023-07-15 | [facility] | 8.9 | (missing) | (missing) | | (unavailable | 04:09:07 | [facility] | | | | + + + +-------+ + + + + | Result panel 506 | + + + + + +---------+ + + | | 2023-07-15 | [facility] | 15.62 | (missing) | (missing) | | (unavailable | 04:09:07 | [facility] | | | | + + + +---------+ + + + + | Result panel 507 | + + + + + +--------+ + + | | 2023-07-15 | [facility] | 17.6 | (missing) | (missing) | | (unavailable | 04:09:07 | [facility] | | | | + + + +--------+ + + + + | Result panel 508 | + + + + + +-------+---------+ + | | 2023-07-15 | [facility] | 9.4 | mg/dL | (missing) | | (unavailable | 04:09:07 | [facility] | | | | + + + +-------+---------+ + + + | Result panel 509 | + + + + + +-------+ + + | | 2023-07-15 | [facility] | 7.7 | (missing) | (missing) | | (unavailable | 04:09:07 | [facility] | | | | + + + +-------+ + + + + | Result panel 510 | + + + + + +-------+ + + | | 2023-07-15 | [facility] | 4.4 | (missing) | (missing) | | (unavailable | 04:09:07 | [facility] | | | | + + + +-------+ + + + + | Result panel 511 | + + + + + +-------+ + + | | 2023-07-15 | [facility] | 3.3 | (missing) | (missing) | | (unavailable | 04:09:07 | [facility] | | | | + + + +-------+ + + + + | Result panel 512 | + + + + + +--------+ + + | | 2023-07-15 | [facility] | 1.33 | (missing) | (missing) | | (unavailable | 04:09:07 | [facility] | | | | + + + +--------+ + + + + | Result panel 513 | + + + + + +-------+ + + | | 2023-07-15 | [facility] | 0.6 | (missing) | (missing) | | (unavailable | 04:09:07 | [facility] | | | | + + + +-------+ + + + + | Result panel 514 | + + + + + +------+ + + | | 2023-07-15 | [facility] | 14 | (missing) | (missing) | | (unavailable | 04:09:07 | [facility] | | | | + + + +------+ + + + + | Result panel 515 | + + + + + +------+ + + | | 2023-07-15 | [facility] | 26 | (missing) | (missing) | | (unavailable | 04:09:07 | [facility] | | | | + + + +------+ + + + + | Result panel 516 | + + + + + +------+ + + | | 2023-07-15 | [facility] | 57 | (missing) | (missing) | | (unavailable | 04:09:07 | [facility] | | | | + + + +------+ + + + + | Result panel 517 | + + + + + +-------+ + + | | 2023-07-15 | [facility] | 139 | (missing) | (missing) | | (unavailable | 04:09:07 | [facility] | | | | + + + +-------+ + + + + | Result panel 518 | + + + + + +------+ + + | | 2023-07-15 | [facility] | 87 | (missing) | (missing) | | (unavailable | 04:09:07 | [facility] | | | | + + + +------+ + + + + | Result panel 519 | + + + + + +--------+ + + | | 2023-07-15 | [facility] | <4.0 | (missing) | (missing) | | (unavailable | 04:09:07 | [facility] | | | | + + + +--------+ + + + + | Result panel 520 | + + + + + +-------+ + + | | 2023-07-15 | [facility] | 3.6 | (missing) | (missing) | | (unavailable | 04:09:07 | [facility] | | | | + + + +-------+ + + + + | Result panel 521 | + + + + + +-------+ + + | | 2023-07-15 | [facility] | 103 | (missing) | (missing) | | (unavailable | 04:09:07 | [facility] | | | | + + + +-------+ + + + + | Result panel 522 | + + + + + +------+ + + | | 2023-07-15 | [facility] | 22 | (missing) | (missing) | | (unavailable | 04:09:07 | [facility] | | | | + + + +------+ + + + + | Result panel 523 | + + + + + +--------+ + + | | 2023-07-15 | [facility] | 17.6 | (missing) | (missing) | | (unavailable | 04:09:07 | [facility] | | | | + + + +--------+ + + + + | Result panel 524 | + + + + + +-------+---------+ + | | 2023-07-15 | [facility] | 9.4 | mg/dL | (missing) | | (unavailable | 04:09:07 | [facility] | | | | + + + +-------+---------+ + + + | Result panel 525 | + + + + + +-------+ + + | | 2023-07-15 | [facility] | 7.7 | (missing) | (missing) | | (unavailable | 04:09:07 | [facility] | | | | + + + +-------+ + + + + | Result panel 526 | + + + + + +-------+ + + | | 2023-07-15 | [facility] | 4.4 | (missing) | (missing) | | (unavailable | 04:09:07 | [facility] | | | | + + + +-------+ + + + + | Result panel 527 | + + + + + +-------+ + + | | 2023-07-15 | [facility] | 3.3 | (missing) | (missing) | | (unavailable | 04:09:07 | [facility] | | | | + + + +-------+ + + + + | Result panel 528 | + + + + + +--------+ + + | | 2023-07-15 | [facility] | 4.46 | (missing) | (missing) | | (unavailable | 04:09:07 | [facility] | | | | + + + +--------+ + + + + | Result panel 529 | + + + + + +--------+ + + | | 2023-07-15 | [facility] | 1.33 | (missing) | (missing) | | (unavailable | 04:09:07 | [facility] | | | | + + + +--------+ + + + + | Result panel 530 | + + + + + +-------+ + + | | 2023-07-15 | [facility] | 0.6 | (missing) | (missing) | | (unavailable | 04:09:07 | [facility] | | | | + + + +-------+ + + + + | Result panel 531 | + + + + + +------+ + + | | 2023-07-15 | [facility] | 14 | (missing) | (missing) | | (unavailable | 04:09:07 | [facility] | | | | + + + +------+ + + + + | Result panel 532 | + + + + + +------+ + + | | 2023-07-15 | [facility] | 26 | (missing) | (missing) | | (unavailable | 04:09:07 | [facility] | | | | + + + +------+ + + + + | Result panel 533 | + + + + + +------+ + + | | 2023-07-15 | [facility] | 57 | (missing) | (missing) | | (unavailable | 04:09:07 | [facility] | | | | + + + +------+ + + + + | Result panel 534 | + + + + + +------+ + + | | 2023-07-15 | [facility] | 87 | (missing) | (missing) | | (unavailable | 04::07 | [facility] | | | | + + + +------+ + + + + | Result panel 535 | + + + + + +--------+ + + | | 2023-07-15 | [facility] | <4.0 | (missing) | (missing) | | (unavailable | 04:09:07 | [facility] | | | | + + + +--------+ + + + + | Result panel 536 | + + + + + +--------+ + + | | 2023-07-15 | [facility] | 13.1 | (missing) | (missing) | | (unavailable | 04::07 | [facility] | | | | + + + +--------+ + + + + | Result panel 537 | + + + + + +--------+ + + | | 2023-07-15 | [facility] | 38.4 | (missing) | (missing) | | (unavailable | 04:09:07 | [facility] | | | | + + + +--------+ + + + + | Result panel 538 | + + + + + +-------+ + + | | 2023-07-15 | [facility] | 8.9 | (missing) | (missing) | | (unavailable | 04::07 | [facility] | | | | + + + +-------+ + + + + | Result panel 539 | + + + + + +--------+ + + | | 2023-07-15 | [facility] | 4.46 | (missing) | (missing) | | (unavailable | 04:09:07 | [facility] | | | | + + + +--------+ + + + + | Result panel 540 | + + + + + +--------+ + + | | 2023-07-15 | [facility] | 13.1 | (missing) | (missing) | | (unavailable | 04:09:07 | [facility] | | | | + + + +--------+ + + + + | Result panel 541 | + + + + + +--------+ + + | | 2023-07-15 | [facility] | 38.4 | (missing) | (missing) | | (unavailable | 04:09:07 | [facility] | | | | + + + +--------+ + + + + | Result panel 542 | + + + + + +--------+ + + | | 2023-07-15 | [facility] | 86.1 | (missing) | (missing) | | (unavailable | 04:09:07 | [facility] | | | | + + + +--------+ + + + + | Result panel 543 | + + + + + +--------+ + + | | 2023-07-15 | [facility] | 29.4 | (missing) | (missing) | | (unavailable | 04:09:07 | [facility] | | | | + + + +--------+ + + + + | Result panel 544 | + + + + + +--------+ + + | | 2023-07-15 | [facility] | 86.1 | (missing) | (missing) | | (unavailable | 04:09:07 | [facility] | | | | + + + +--------+ + + + + | Result panel 545 | + + + + + +--------+ + + | | 2023-07-15 | [facility] | 34.2 | (missing) | (missing) | | (unavailable | 04::07 | [facility] | | | | + + + +--------+ + + + + | Result panel 546 | + + + + + +--------+ + + | | 2023-07-15 | [facility] | 12.9 | (missing) | (missing) | | (unavailable | 04:09:07 | [facility] | | | | + + + +--------+ + + + + | Result panel 547 | + + + + + +-------+ + + | | 2023-07-15 | [facility] | 430 | (missing) | (missing) | | (unavailable | 04:09:07 | [facility] | | | | + + + +-------+ + + + + | Result panel 548 | + + + + + +--------+ + + | | 2023-07-15 | [facility] | 48.8 | (missing) | (missing) | | (unavailable | 04:09:07 | [facility] | | | | + + + +--------+ + + + + | Result panel 549 | + + + + + +--------+ + + | | 2023-07-15 | [facility] | 30.9 | (missing) | (missing) | | (unavailable | 04:09:07 | [facility] | | | | + + + +--------+ + + + + | Result panel 550 | + + + + + +-------+ + + | | 2023-07-15 | [facility] | 8.9 | (missing) | (missing) | | (unavailable | 04:09:07 | [facility] | | | | + + + +-------+ + + + + | Result panel 551 | + + + + + +--------+ + + | | 2023-07-15 | [facility] | 10.9 | (missing) | (missing) | | (unavailable | 04:09:07 | [facility] | | | | + + + +--------+ + + + + | Result panel 552 | + + + + + +-------+ + + | | 2023-07-15 | [facility] | 0.5 | (missing) | (missing) | | (unavailable | 04::07 | [facility] | | | | + + + +-------+ + + + + | Result panel 553 | + + + + + +-------+---------+ + | | 2023-07-15 | [facility] | 103 | mg/dL | (missing) | | (unavailable | 04:09:07 | [facility] | | | | + + + +-------+---------+ + + + | Result panel 554 | + + + + + +------+---------+ + | | 2023-07-15 | [facility] | 10 | mg/dL | (missing) | | (unavailable | 04:: | [facility] | | | | + + + +------+---------+ + + + | Result panel 555 | + + + + + +--------+ + + | | 2023-07-15 | [facility] | 29.4 | (missing) | (missing) | | (unavailable | 04:09:07 | [facility] | | | | + + + +--------+ + + + + | Result panel 556 | + + + + + +--------+---------+ + | | 2023-07-15 | [facility] | 0.64 | mg/dL | (missing) | | (unavailable | 04:09:07 | [facility] | | | | + + + +--------+---------+ + + + | Result panel 557 | + + + + + +-------+ + + | | 2023-07-15 | [facility] | 129 | (missing) | (missing) | | (unavailable | 04:09:07 | [facility] | | | | + + + +-------+ + + + + | Result panel 558 | + + + + + +---------+ + + | | 2023-07-15 | [facility] | 15.62 | (missing) | (missing) | | (unavailable | 04:09:07 | [facility] | | | | + + + +---------+ + + + + | Result panel 559 | + + + + + +-------+ + + | | 2023-07-15 | [facility] | 139 | (missing) | (missing) | | (unavailable | 04:09:07 | [facility] | | | | + + + +-------+ + + + + | Result panel 560 | + + + + + +-------+ + + | | 2023-07-15 | [facility] | 3.6 | (missing) | (missing) | | (unavailable | 04:09:07 | [facility] | | | | + + + +-------+ + + + + | Result panel 561 | + + + + + +-------+ + + | | 2023-07-15 | [facility] | 103 | (missing) | (missing) | | (unavailable | 04:09:07 | [facility] | | | | + + + +-------+ + + + + | Result panel 562 | + + + + + +------+ + + | | 2023-07-15 | [facility] | 22 | (missing) | (missing) | | (unavailable | 04:09:07 | [facility] | | | | + + + +------+ + + + + | Result panel 563 | + + + + + +--------+ + + | | 2023-07-15 | [facility] | 17.6 | (missing) | (missing) | | (unavailable | 04:09:07 | [facility] | | | | + + + +--------+ + + + + | Result panel 564 | + + + + + +-------+---------+ + | | 2023-07-15 | [facility] | 9.4 | mg/dL | (missing) | | (unavailable | 04:09:07 | [facility] | | | | + + + +-------+---------+ + + + | Result panel 565 | + + + + + +-------+ + + | | 2023-07-15 | [facility] | 7.7 | (missing) | (missing) | | (unavailable | 04:09:07 | [facility] | | | | + + + +-------+ + + + + | Result panel 566 | + + + + + +--------+ + + | | 2023-07-15 | [facility] | 34.2 | (missing) | (missing) | | (unavailable | 04:09:07 | [facility] | | | | + + + +--------+ + + + + | Result panel 567 | + + + + + +-------+ + + | | 2023-07-15 | [facility] | 4.4 | (missing) | (missing) | | (unavailable | 04:09:07 | [facility] | | | | + + + +-------+ + + + + | Result panel 568 | + + + + + +-------+ + + | | 2023-07-15 | [facility] | 3.3 | (missing) | (missing) | | (unavailable | 04:09:07 | [facility] | | | | + + + +-------+ + + + + | Result panel 569 | + + + + + +--------+ + + | | 2023-07-15 | [facility] | 1.33 | (missing) | (missing) | | (unavailable | 04:09:07 | [facility] | | | | + + + +--------+ + + + + | Result panel 570 | + + + + + +-------+ + + | | 2023-07-15 | [facility] | 0.6 | (missing) | (missing) | | (unavailable | 04:09:07 | [facility] | | | | + + + +-------+ + + + + | Result panel 571 | + + + + + +------+ + + | | 2023-07-15 | [facility] | 14 | (missing) | (missing) | | (unavailable | 04::07 | [facility] | | | | + + + +------+ + + + + | Result panel 572 | + + + + + +------+ + + | | 2023-07-15 | [facility] | 26 | (missing) | (missing) | | (unavailable | 04:09:07 | [facility] | | | | + + + +------+ + + + + | Result panel 573 | + + + + + +------+ + + | | 2023-07-15 | [facility] | 57 | (missing) | (missing) | | (unavailable | 04:09:07 | [facility] | | | | + + + +------+ + + + + | Result panel 574 | + + + + + +------+ + + | | 2023-07-15 | [facility] | 87 | (missing) | (missing) | | (unavailable | 04::07 | [facility] | | | | + + + +------+ + + + + | Result panel 575 | + + + + + +--------+ + + | | 2023-07-15 | [facility] | <4.0 | (missing) | (missing) | | (unavailable | | [facility] | | | | + + + +--------+ + + + + | Result panel 576 | + + + + + +--------+ + + | | 2023-07-15 | [facility] | 12.9 | (missing) | (missing) | | (unavailable | 04: | [facility] | | | | + + + +--------+ + + Social History + + + + | date | description | facility | + + + + | 2022-06-09 00:00 | Never smoker | [facility] | + + + [...] lb | + + + +---------+ | 2023-07-17 00:00 | BMI | 25.2 | kg/m2 | + + + +---------+ | 2023-07-17 00:00 | BP_diastolic | 61 | mmHg | + + + +---------+ | 2023-07-17 00:00 | BP_diastolic | 73 | mmHg | + + + +---------+ | 2023-07-17 00:00 | BP_systolic | 107 | mmHg | + + + +---------+ | 2023-07-17 00:00 | BP_systolic | 121 | mmHg | + + + +---------+ | 2023-07-17 00:00 | heart_rate | 63 | /min | + + + +---------+ | 2023-07-17 00:00 | heart_rate | 80 | /min | + + + +---------+ | 2023-07-17 00:00 | height_metric | 152.4 | cm | + + + +---------+ | 2023-07-17 00:00 | height_standard | 60 | in | + + + +---------+ | 2023-07-17 00:00 | o2_saturation | 96 | % | + + + +---------+ | 2023-07-17 00:00 | o2_saturation | 98 | % | + + + +---------+ | 2023-07-17 00:00 | respiration_rate | 14 | /min | + + + +---------+ | 2023-07-17 00:00 | respiration_rate | 20 | /min | + + + +---------+ | 2023-07-17 00:00 | temperature_metric | 36.72 | C | | | | | | + + + +---------+ | 2023-07-17 00:00 | temperature_metric | 37.22 | C | | | | | | + + + +---------+ | 2023-07-17 00:00 | | 98.1 | F | | | temperature_standar | | | | | d | | | + + + +---------+ | 2023-07-17 00:00 | | 99 | F | | | temperature_standar | | | | | d | | | + + + +---------+ | 2023-07-17 00:00 | weight_metric | 58.6 | kg | + + + +---------+ | 2023-07-17 00:00 | weight_standard | 129.19 | lb | + + + +---------+"
--- OUTSIDE RECORDS SUMMARY | ~2023-07-21 | XMS | Continuity of Care Document ---
Demographics + + + | Address | [address] | | | [place] [address] | + + + | Preferred Language | Unknown | + + + | Marital Status | Never | + + + | Mormonism Affiliation | Unknown | + + + | Race | White | + + + | Ethnic Group | Not or | + + + Author + + + | Author | [facility] | + + + | Organization | [facility] | + + + | Address | [address] | | | [place] [address] | + + + | Phone | | + + + Care Team Providers + + + + | Care Apparel Pattern Maker Name | Role | Phone | + [...] | 2018-06-26 00:00 | [facility] | + + + + | 2022-06-09 00:00 | No vaccine administered | [facility] | + + + + Medications + + + + | date | description | facility | + + + + | 2023-07-10 00:00 | ONDANSETRON | [facility] | + + + + | 2022-06-09 00:00 | OXYCODONE | [facility] | | | HCL/ACETAMINOPHEN | | + + + + | 2022-06-09 00:00 | acetaminophen 325 MG / | [facility] | | | oxycodone hydrochloride 7.5 | | | | MG Oral T | | + + + + | 2023-07-17 00:00 | Ergocalciferol (Vitamin | [facility] | | | D2) | | + + + + | 2022-06-09 00:00 | IBUPROFEN | [facility] | + + + + | 2022-06-09 00:00 | ibuprofen 600 MG Oral | [facility] | | | Tablet | | + + + + | 2022-06-06 00:00 | OMEPRAZOLE | [facility] | + + + + | 2023-07-17 00:00 | OMEPRAZOLE | [facility] | + + + + | 2022-06-06 00:00 | omeprazole 20 MG Delayed | [facility] | | | Release Oral Capsule | | + + + + | 2023-07-04 00:00 | ONDANSETRON HCL | [facility] | + + + + | 2023-07-10 00:00 | ONDANSETRON HCL | [facility] | + + + + | 2023-07-15 00:00 | ONDANSETRON HCL | [facility] | + + + + | 2022-06-09 00:00 | ACETAMINOPHEN | [facility] | + + + + | 2022-06-09 00:00 | acetaminophen 500 MG Oral | [facility] | | | Tablet | | + + + + | 2023-07-04 00:00 | FLUOXETINE HCL | [facility] | + + + + | 2023-07-10 00:00 | FLUOXETINE HCL | [facility] | + + + + | 2023-07-15 00:00 | FLUOXETINE HCL | [facility] | + + + + | 2023-07-17 00:00 | FLUOXETINE HCL | [facility] | + + + + | 2023-07-17 00:00 | PROCHLORPERAZINE MALEATE | [facility] | + + + + | 2023-07-04 00:00 | SUCRALFATE | [facility] | + + + + | 2023-07-15 00:00 | SUCRALFATE | [facility] | + + + + | 2015-01-28 00:00 | AZITHROMYCIN | [facility] | + + + + | 2015-01-28 00:00 | azithromycin 250 MG Oral | [facility] | | | Tablet [Zithromax] | | + + + + | 2022-05-27 00:00 | ONDANSETRON | [facility] | + + + + | 2023-01-25 00:00 | ONDANSETRON | [facility] | + + + + | 2022-05-27 00:00 | ondansetron 8 MG | [facility] | | | Disintegrating Oral Tablet | | + + + + | 2023-07-17 00:00 | VALACYCLOVIR HCL | [facility] | + + + + | 2022-06-06 00:00 | DICYCLOMINE HCL | [facility] | + + + + | 2022-06-06 00:00 | dicyclomine hydrochloride | [facility] | | | 20 MG Oral Tablet | | + + + + | 2023-07-17 00:00 | PROMETHAZINE HCL | [facility] | + + + + | 2023-07-17 00:00 | PROMETHAZINE HCL | [facility] | + + + + Problems + + + + | date | description | facility | + + + + | 2015-01-28 00:00 | Bronchitis | [facility] | + + + + | 2018-06-26 00:00 | Contusion of face | [facility] | + + + + | 2018-06-26 00:00 | Contusion of left knee | [facility] | + + + + | 2022-05-27 00:00 | Acute gastritis | [facility] | + + + + | 2022-06-07 00:00 | Dehydration | [facility] | + + + + | 2022-06-07 00:00 | Abdominal pain | [facility] | + + + + | 2022-11-09 00:00 | Vomiting | [facility] | + + + + | 2022-11-09 [...] + + | 2023-01-25 08:23 | OTHER RESIDENTIAL (CURRENT) | [facility] | | | DRUG TH[facility]APY | | + + + + | 2023-07-04 07:41 | GASTRITIS, UNSPECIFIED, | [facility] | | | WITHOUT BLEEDING | | + + + + | 2023-07-04 07:41 | NAUSEA WITH VOMITING, | [facility] | | | UNSPECIFIED | | + + + + | 2023-07-04 07:41 | 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) | [facility] | | | DRUG TH[facility]APY | | + + + + | 2023-07-07 00:00 | Gastritis | [facility] | + + + + | 2023-07-10 07:04 | GASTRITIS, UNSPECIFIED, | [facility] | | | WITHOUT BLEEDING | | + + + + | 2023-07-10 07:04 | EPIGASTRIC PAIN | [facility] | + + + + | 2023-07-10 07:04 | OTHER RESIDENTIAL (CURRENT) | [facility] | | | DRUG THERAPY | | + + + + | 2023-07-15 00:00 | Epigastric pain | [facility] | + + + + | 2023-07-15 03:49 | UPPER ABDOMINAL PAIN, | [facility] | | | UNSPECIFIED | | + + + + | 2023-07-15 03:49 | EPIGASTRIC PAIN | [facility] | + + + + | 2023-07-15 03:49 | OTHER RESIDENTIAL (CURRENT) | [facility] | | | DRUG TH[facility]APY | | + + + + | 2023-07-17 00:00 | Cyclic vomiting syndrome | [facility] | + + + + | 2023-07-17 05:35 | UNSPECIFIED ABDOMINAL PAIN | [facility] | | | | | + + + + | 2023-07-17 05:35 | CYCLICAL VOMITING SYNDROME | [facility] | | | UNRELATED TO MIGRAINE | | + + + + | 2023-07-17 05:35 | OTHER RESIDENTIAL (CURRENT) | [facility] | | | DRUG [...] | 2022-06-08 00:00 | Laparoscopic | [facility] | | | cholecystectomy with | | | | cholangiography | | + + + + | 2022-06-08 00:00 | Laparoscopic | [facility] | | | cholecystectomy with | | [...] (missing) | | (unavailable | 08:40:08 | Alvre[facility] | | | | | ) | [...] (missing) | | (unavailable | 08:27:07 | Alevrto | | | | | [...] 2022-06-09 00:00 | Never smoker | [facility] | + + + + Vital [...]
[~2023-07-21 06:46] MED LIST changes: +COMPAZINE25 MG PR
--- OUTSIDE RECORDS SUMMARY | 2023-07-21 06:54 | XMS ---
PreManage Notification: KATERIN MARINA Security Roller Checker Events No recent Security Events currently on file CRITERIA MET - 6 ED Visits in 6 Months - [facility] - 2 Visits in 30 Days CARE PROVIDERS LION MCKEE Nurse Practitioner: Family Current PHONE: [phone] ZION BLOCK [facility] Current PHONE: [phone] Juan has no Care Guidelines for this patient. E.DSruthi VISIT COUNT (12 MO.) [address] [place] [address] TOTAL 10 NOTE: Visits indicate total known visits. ED/UCC VISIT TRACKING (12 MO.) 07/21/2023 06:[address] [facility] TYPE: Emergency COMPLAINT: - VOMITING, ABD PAIN, NAUSEA, SHAKY, BACK PAIN 07/17/2023 11:[address] [facility] TYPE: Emergency COMPLAINT: - ABD PAIN, VOMITING DIAGNOSES: - Allergy to other foods - Cyclical vomiting syndrome unrelated to migraine - Unspecified abdominal pain [facility] COMPLAINT: - ABD PAIN DIAGNOSES: - Cyclical vomiting syndrome unrelated to migraine - Other care home (current) drug therapy - Unspecified abdominal pain 07/15/2023 03:49 [facility] COMPLAINT: - ABD PAIN DIAGNOSES: - Epigastric pain - Other care home (current) drug therapy - Upper abdominal pain, unspecified 07/10/2023 07:04 [facility] COMPLAINT: - ABD PAIN DIAGNOSES: - Epigastric pain - Gastritis, unspecified, without bleeding - Other care home (current) drug therapy 07/04/2023 07:41 [facility] COMPLAINT: - VOMITING, ABD SWOLLEN/PAIN DIAGNOSES: - Gastritis, unspecified, without bleeding - Nausea with vomiting, unspecified - 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 Nausea with vomiting, unspecified 09/25/2022 08:52 [facility] [place] TYPE: Emergency DIAGNOSES: - Nausea with vomiting, unspecified - Abdominal Pain - Emesis INPATIENT VISIT TRACKING (12 MO.) No inpatient visits to display in this time frame [id number]
[2023-07-21 07:30] LABS: HEMATOCRIT 41.8 % (35.0-50.0); HEMOGLOBIN 13.8 g/dL (12.0-18.0); MCH 28.8 (27-36); MCHC 33.1 g/dl (30-36); PLATELET COUNT 493 K/uL (140-440); RBC 4.81 M/ul (4.3-5.7); RDW 13.2 (10.5-15.0)
[2023-07-21 07:48] LABS: ALBUMIN 4.7 g/dL (3.4-5.0); ALBUMIN/GLOBULIN RATIO 1.31 (1.1-2.4); ANION GAP 15.3 (7-21); BUN/CREATININE RATIO 7.04 (6.0-28.6); CALCIUM 9.7 mg/dL (8.5-10.1); CREATININE, SERUM 0.71 mg/dL (0.55-1.02); POTASSIUM 3.3 mmol/L (3.5-5.1); PROTEIN, TOTAL 8.3 g/dL (6.4-8.2)
[2023-07-21 07:58] LABS: EOSINOPHILS, MANUAL DIFF 2; LYMPHOCYTES, MANUAL DIFF 13; MONOCYTES, MANUAL DIFF 1; NEUTROPHILS, MANUAL DIFF 84
[2023-07-21 08:51] LABS: ACETAMINOPHEN 0 ug/mL (10-30)
[2023-07-21] MEDS ORDERED: PROCHLORPERAZIN10 MG PO (10:30)
[2023-07-21] MEDS ORDERED: ONDANSETRON ODT8 MG PO (10:32)
[2023-07-21 10:40] VITALS: BP 101/65
== END 2023-07-21 10:43 | disposition home or self-care (01) ==
LOC: ED 06:46
PROVIDERS: Emergency Medicine
DX: R11.2 Nausea with vomiting, unspecified (principal); R74.01 Elevation of levels of liver transaminase levels; Z88.8 Allergy status to other drugs, medicaments and biological substances
CPT/HCPCS: 36415; 80053; 83690; 84703; 85025; 96361; 96374; 96375; 99284-25; G0480; J1200; J1790; J2060; J7030

== ENCOUNTER 2023-08-13 02:48 | Emergency (ER) | payer OTHER, BC ==
[~2023-08-13] VITALS: Ht 152.4 cm; Wt 56.9 kg
--- OUTSIDE RECORDS SUMMARY | ~2023-08-13 | XMS | Continuity of Care Document ---
Demographics + + + | Address | [address] | | | [place] [address] | + + + | Preferred Language | Unknown | + + + | Marital Status | Never | + + + | Restorationist Affiliation | Unknown | + + + | Race | White | + + + | Ethnic Group | Not or | + + + Author + + + | Author | [facility] | + + + | Organization | [facility] | + + + | Address | [address] | | | [place], [place] [address] | + + + | Phone | | + + + Care Team Providers + + + + | Care Library Customer Service Clerk Name | Role | Phone | + + + + Unavailable | Unavailable | + + + + Allergies No information. Encounters No information. Functional Status No information. Immunizations No information. Medications No information. 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) | [facility] | | | DRUG THERAPY | | + + + + | 2023-07-10 07:04 | GASTRITIS, UNSPECIFIED, | [facility] | | | WITHOUT BLEEDING | | + + + + | 2023-07-10 07:04 | EPIGASTRIC PAIN | [facility] | + + + + | 2023-07-10 07:04 | OTHER SHELTER (CURRENT) | [facility] | | | DRUG THERAPY | | + + + + | 2023-07-15 03:49 | UPPER ABDOMINAL PAIN, | [facility] | | | UNSPECIFIED | | + + + + | 2023-07-15 03:49 | EPIGASTRIC PAIN | [facility] | + + + + | 2023-07-15 03:49 | OTHER SHELTER (CURRENT) | [facility] | | | DRUG THERAPY | | + + + + | 2023-07-17 05:35 | UNSPECIFIED ABDOMINAL PAIN | [facility] | | | | | + + + + | 2023-07-17 05:35 | CYCLICAL VOMITING SYNDROME | [facility] | | | UNRELATED TO MIGRAINE | | + + + + | 2023-07-17 05:35 | OTHER CHART COLLECTOR (CURRENT) | [facility] | | | DRUG [...] [facility] | + + + + | 2023-07-21 06:47 | UPPER ABDOMINAL PAIN, | [facility] | | | UNSPECIFIED | | + + + + | 2023-07-21 06:47 | NAUSEA WITH VOMITING, | [facility] | | | UNSPECIFIED | | + + + + | 2023-07-21 06:47 | ALLERGY STATUS TO OTH | [facility] | | | DRUG/MEDS/BIOL SUBST STATUS | | | | | | + + + + Procedures No information. Results/Labs No information. Social History +--------+ + + | date | description | facility | +--------+ + + Vital Signs No information."
--- OUTSIDE RECORDS SUMMARY | ~2023-08-13 | XMS | Continuity of Care Document ---
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) | [facility] | | | DRUG THERAPY | | + + + + | 2023-07-10 07:04 | GASTRITIS, UNSPECIFIED, | [facility] | | | WITHOUT BLEEDING | | + + + + | 2023-07-10 07:04 | EPIGASTRIC PAIN | [facility] | + + + + | 2023-07-10 07:04 | OTHER FPC (CURRENT) | [facility] | | | DRUG THERAPY | | + + + + | 2023-07-15 03:49 | UPPER ABDOMINAL PAIN, | [facility] | | | UNSPECIFIED | | + + + + | 2023-07-15 03:49 | EPIGASTRIC PAIN | [facility] | + + + + | 2023-07-15 03:49 | OTHER FPC (CURRENT) | [facility] | | | DRUG THERAPY | | + + + + | 2023-07-17 05:35 | UNSPECIFIED ABDOMINAL PAIN | [facility] | | | | | + + + + | 2023-07-17 05:35 | CYCLICAL VOMITING SYNDROME | [facility] | | | UNRELATED TO MIGRAINE | | + + + + | 2023-07-17 05:35 | OTHER SCALLOP CUTTER (CURRENT) | [facility] | | | DRUG [...]
[~2023-08-13 02:48] MED LIST changes: +PROCHLORPERAZIN10 MG PO
--- OUTSIDE RECORDS SUMMARY | 2023-08-13 02:55 | XMS ---
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 E.D. VISIT COUNT (12 MO.) [address] [place] [address] [facility] TOTAL 11 NOTE: Visits indicate total known visits. ED/UCC VISIT TRACKING (12 MO.) 08/13/2023 02:48 [facility] TYPE[facility] Emergency COMPLAINT: - ABD PAIN 07/21/2023 06:47 [facility] TYPE: Emergency COMPLAINT: - VOMITING, ABD PAIN, NAUSEA, SHAKY, BACK PAIN DIAGNOSES: - Allergy status to other drugs, medicaments and biological substances - Elevation of levels of liver transaminase levels - Nausea with vomiting, unspecified - Upper abdominal pain, unspecified 07/17/2023 11:40 [facility] TYPE: Emergency COMPLAINT: - ABD PAIN, VOMITING DIAGNOSES: - Allergy to other foods - Cyclical vomiting syndrome unrelated to migraine - Unspecified abdominal pain 07/17/2023 05:35 [facility] TYPE: Emergency COMPLAINT: - ABD PAIN DIAGNOSES: - Cyclical vomiting syndrome unrelated to migraine - 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 - Unspecified abdominal pain 07/15/2023 03:49 [facility] TYPE: Emergency COMPLAINT: - ABD PAIN DIAGNOSES: - Epigastric pain - Other fdc (current) drug therapy - Upper abdominal pain, unspecified 07/10/2023 07:04 [facility] [place] TYPE: Emergency COMPLAINT: - ABD PAIN DIAGNOSES: - Epigastric pain - Gastritis, unspecified, without bleeding - Other fdc (current) drug therapy 07/04/2023 07:41 [facility] [place] TYPE: Emergency COMPLAINT: - VOMITING, ABD SWOLLEN/PAIN DIAGNOSES: - Gastritis, unspecified, without bleeding - Nausea with vomiting, unspecified - 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 [place] TYPE: Emergency COMPLAINT: - VOMITING DIAGNOSES: - Acquired absence of other specified parts of digestive tract - Nausea with vomiting, unspecified 10/10/2022 16:59 [facility] TYPE: Emergency COMPLAINT: - Unspecified abdominal pain - Nausea with vomiting, unspecified DIAGNOSES: 1. Nausea with vomiting, unspecified 09/25/2022 08:52 [facility] [place] TYPE: Emergency DIAGNOSES: - Nausea with vomiting, unspecified - Abdominal Pain - Emesis INPATIENT VISIT TRACKING (12 MO.) No inpatient visits to display in this time frame [email or web address]
[2023-08-13 03:57] LABS: BASOPHILS 0.1 % (0-2); EOSINOPHILS 1.5 % (0-6); HEMATOCRIT 45.3 % (35.0-50.0); HEMOGLOBIN 15.3 g/dL (12.0-18.0); MCH 29.5 (27-36); MCHC 33.9 g/dl (30-36); MONOCYTES 9.1 % (0-12); NEUTROPHILS 84.3 % (39-80); PLATELET COUNT 454 K/uL (140-440); RDW 13.4 (10.5-15.0)
[2023-08-13 04:17] LABS: ALBUMIN 5.1 g/dL (3.4-5.0); ALBUMIN/GLOBULIN RATIO 1.31 (1.1-2.4); ANION GAP 18.6 (7-21); BILIRUBIN, TOTAL 0.6 ng/dL (0.2-1.0); BUN/CREATININE RATIO 12.5 (6.0-28.6); CALCIUM 9.9 mg/dL (8.5-10.1); CREATININE, SERUM 0.4 mg/dL (0.55-1.02); POTASSIUM 3.6 mmol/L (3.5-5.1)
[2023-08-13 05:26] VITALS: BP 117/65
== END 2023-08-13 05:26 | disposition home or self-care (01) ==
LOC: ED 02:48
PROVIDERS: Internal Medicine
DX: R10.13 Epigastric pain (principal); R10.10 Upper abdominal pain, unspecified; Z91.018 Allergy to other foods; Z79.899 Other long term (current) drug therapy
CPT/HCPCS: 36415; 80053; 84703; 85025; 96374; 96375; 99284-25; J1200; J1790; J1885; J7121

== ENCOUNTER 2025-05-22 06:43 | Emergency (ER) | payer BC ==
[~2025-05-22] VITALS: Ht 152.4 cm; Wt 65.0 kg
[~2025-05-22 06:43] MED LIST changes: +ALLERGY MEDICAT25 MG PO; +DICYCLOMINE HCL10 MG PO; +PROMETHEGAN25 MG PR; +REGLAN10 MG PO
[2025-05-22] MEDS ORDERED: ondansetron HCL 4 MG/2 ML VIAL IV ONE (07:00)
[2025-05-22] MEDS ORDERED: HALOPERIDOL LACTATE 5 MG/ML VIAL IV ONE (07:15)
[2025-05-22] MEDS ORDERED: SODIUM CHLORIDE 0.9% 1,000 ML IV ONE (07:15)
[2025-05-22] MEDS ORDERED: diphenhydrAMINE HCL 50 MG/ML VIAL IV ONE (07:15)
[2025-05-22 07:21] LABS: ALBUMIN 4.6 g/dL (3.4-5.0); ALBUMIN/GLOBULIN RATIO 1.18 (1.1-2.4); BILIRUBIN, TOTAL 1.1 mg/dL (0.2-1.0); BUN/CREATININE RATIO 12.5 (6.0-28.6); CALCIUM 9.5 mg/dL (8.5-10.1); CREATININE, SERUM 0.72 mg/dL (0.55-1.02); MAGNESIUM 1.7 mg/dL (1.8-2.4); PROTEIN, TOTAL 8.5 g/dL (6.4-8.2)
[2025-05-22 07:26] LABS: BASOPHILS 0.7 % (0.1-1.2); EOSINOPHILS 4.2 % (0.7-5.8); HEMATOCRIT 43.4 % (34.1-44.9); HEMOGLOBIN 15.5 g/dL (11.2-15.7); LYMPHOCYTES 11.4 % (19.3-51.7); MCH 28.8 PG (25.6-32.2); MCHC 35.7 g/dL (32.2-35.5); MCV 80.5 fL (79.4-94.8); NEUTROPHILS 78.4 % (34.0-71.1); PLATELET COUNT 511 K/uL (182-369); RBC 5.39 M/uL (3.93-5.22)
[2025-05-22] MEDS ORDERED: LORazepam 2 MG/ML VIAL IV ONE (08:30)
[2025-05-22 08:40] VITALS: BP 114/76
== END 2025-05-22 08:41 | disposition home or self-care (01) ==
LOC: ED 06:43
PROVIDERS: Emergency Medicine
DX: R11.15 Cyclical vomiting syndrome unrelated to migraine (principal); R10.10 Upper abdominal pain, unspecified
CPT/HCPCS: 36415; 80053; 83690; 83735; 84703; 85025; 96361; 96374; 96375; 99284-25; J1200; J1630; J2060; J2405; J7030

== ENCOUNTER 2025-05-25 07:53 | Emergency (ER) | payer BC ==
[~2025-05-25] VITALS: Ht 152.4 cm; Wt 65.0 kg
--- OUTSIDE RECORDS SUMMARY | 2025-05-25 07:56 | XMS ---
PreManage Notification: KATERIN MARINA Security Clinical Services Consultant Events No recent Security Events currently on file CRITERIA MET - [facility] - 2 Visits in 30 Days CARE PROVIDERS ESTEVAN LUJAN Internal Medicine Current PHONE: Unknown Juan has no Care Guidelines for this patient. EGisela VISIT COUNT (12 MO.) 2 [facility] TOTAL 2 NOTE: Visits indicate total known visits. ED/UCC VISIT TRACKING (12 MO.) 05/25/2025 07:53 [facility] TYPE: Emergency COMPLAINT: - VOMITING 05/22/2025 06:44 [facility] TYPE: Emergency COMPLAINT: - VOMITING DIAGNOSES: - Cyclical vomiting syndrome unrelated to migraine - Nausea with vomiting, unspecified - Upper abdominal pain, unspecified INPATIENT VISIT TRACKING (12 MO.) No inpatient visits to display in this time frame [id number]
[2025-05-25] MEDS ORDERED: METOCLOPRAMIDE HCL 10 MG/2 ML SDV IV ONE ×2 (08:15→09:30)
[2025-05-25] MEDS ORDERED: SODIUM CHLORIDE 0.9% 1,000 ML IV ONE ×2 (08:15→09:45)
[2025-05-25 08:24] LABS: BASOPHILS 0.4 % (0.1-1.2); EOSINOPHILS 1.8 % (0.7-5.8); LYMPHOCYTES 15.4 % (19.3-51.7); MCH 28.5 PG (25.6-32.2); MCHC 35.6 g/dL (32.2-35.5); MCV 80.0 fL (79.4-94.8); MONOCYTES 4.5 % (4.7-12.5); NEUTROPHILS 77.6 % (34.0-71.1); RBC 5.30 M/uL (3.93-5.22)
[2025-05-25 08:41] LABS: ALT (SGPT) 31.0 U/L (14-59); AST (SGOT) 12.0 U/L (15-37); GLOMERULAR FILTRATION RATE,EST 127.0 mL/min (>60); PROTEIN, TOTAL 8.4 g/dL (6.4-8.2); UREA NITROGEN 10.0 mg/dL (7-18)
[2025-05-25] MEDS ORDERED: LORazepam 2 MG/ML VIAL IV ONE (09:45)
[2025-05-25 10:34] VITALS: BP 114/78
== END 2025-05-25 10:34 | disposition home or self-care (01) ==
LOC: ED 07:53
PROVIDERS: Emergency Medicine
DX: R11.2 Nausea with vomiting, unspecified (principal); R10.10 Upper abdominal pain, unspecified
CPT/HCPCS: 36415; 80053; 85025; 96361; 96374; 96375; 96376; 99284-25; J1200; J2060; J2405; J2765; J7030